=== PATIENT | male | born 1970 ===

== ENCOUNTER 2020-07-17 10:07 | Inpatient (IN) | payer MEDICAID, OTHER, SELFPAY ==
[2020-07-17 11:02] LABS: Hemoglobin 14.3 g/dL (14.0-18.0); Mean Corpuscular HGB CONC 34.3 G/DL (32.0-36.0); Mean Corpuscular Volume 84.6 fl (80.0-100.0); Mean Platelet Volume 9.6 fl (7.4-10.4); Platelet Count 240 10x3/uL (130-400); RBC Distribution Width 12.7 % (11.5-14.5); Red Blood Cell (RBC) Count 4.93 10x6/uL (4.40-5.80); White Blood Cell (WBC) Count 8.8 10x3/uL (4.5-11.0)
[2020-07-17 11:03] LABS: MDiff Complete? YES
[2020-07-17 11:17] LABS: ALT (SGPT) 22 U/L (8-55); AST (SGOT) 31 U/L (5-34); Albumin 3.6 g/dL (3.5-5.0); Alkaline Phosphatase 81 U/L (40-110); Anion Gap 15 mmol/L (10-20); BUN (Urea Nitrogen) 12 mg/dL (8.9-20.6); Bilirubin, Total 1.4 mg/dL (0.2-1.2); Calc. Creatinine Clearance 0 mL/min (70-130); Calcium 8.6 mg/dL (7.8-10.44); Carbon Dioxide 26 mmol/L (22-29); Chloride 97 mmol/L (98-107); Globulin 3.8 g/dL (2.4-3.5); Glucose 190 mg/dL (70-105); Potassium 4.2 mmol/L (3.5-5.1); Protein, Total 7.4 g/dL (6.0-8.3); Sodium 134 mmol/L (136-145)
[2020-07-17 11:23] LABS: Band 7 % (5-11); Lymphocytes 8 % (21-51); Monocytes 4 % (0-10); Neutrophil 81 % (42-75)
[2020-07-17 11:24] LABS: Platelet Morphology Comment Appears Adequate; RBC Morphology Normal
[2020-07-17] MEDS ORDERED: Dexamethasone 10 MG/ML VIAL ONE (11:34)
[2020-07-17] MEDS ORDERED: cefTRIAXone\\ROCEPHIN 1 GM VIAL ONE (11:34)
[2020-07-17] MEDS ORDERED: Loperamide HCl 2 MG CAP PO PRN (12:05)
[2020-07-17] MEDS ORDERED: HYDROcodone/Acetaminophen 5/325 mg Tablet PO PRN (12:05)
[2020-07-17] MEDS ORDERED: Azithromycin 500 MG VIAL ONE (12:14)
[2020-07-17] MEDS ORDERED: REMDESIVIR (EUA) 200 MG in Sodium Chloride 0.9% 250 ML 210 ML IV SCH (14:00)
[2020-07-17] MEDS: Famotidine 20 MG TAB PO SCH (22:06)
[2020-07-18 05:55] LABS: #Monocytes 0.6 10x3/uL (0.0-1.1); #Neutrophils 7.6 10x3/uL (1.5-8.4); %Basophils 0.1 % (0.0-2.0); %Monocytes 6.2 % (0.0-10.0); %Neutrophils 78.9 % (40.0-75.0); Hemoglobin 13.6 g/dL (14.0-18.0); Mean Corpuscular HGB CONC 34.1 G/DL (32.0-36.0); Mean Corpuscular Hemoglobin 29.1 PG (27.0-33.0); Mean Corpuscular Volume 85.3 fl (80.0-100.0); Mean Platelet Volume 9.7 fl (7.4-10.4); Platelet Count 278 10x3/uL (130-400); RBC Distribution Width 12.7 % (11.5-14.5); Red Blood Cell (RBC) Count 4.68 10x6/uL (4.40-5.80); White Blood Cell (WBC) Count 9.7 10x3/uL (4.5-11.0)
[2020-07-18 06:17] LABS: Anion Gap 15 mmol/L (10-20); BUN (Urea Nitrogen) 16 mg/dL (8.9-20.6); Calc. Creatinine Clearance 142 mL/min (70-130); Carbon Dioxide 24 mmol/L (22-29); Chloride 103 mmol/L (98-107); Glucose 175 mg/dL (70-105); Potassium 4.2 mmol/L (3.5-5.1); Sodium 138 mmol/L (136-145)
[2020-07-18 06:18] LABS: ALT (SGPT) 23 U/L (8-55); AST (SGOT) 31 U/L (5-34); Albumin 3.4 g/dL (3.5-5.0); Alkaline Phosphatase 77 U/L (40-110); Bilirubin, Total 0.6 mg/dL (0.2-1.2); Calcium 8.7 mg/dL (7.8-10.44); Globulin 3.5 g/dL (2.4-3.5); Magnesium 2.1 mg/dL (1.6-2.6); Protein, Total 6.9 g/dL (6.0-8.3)
[2020-07-18] MEDS: Ascorbic Acid 500 mg Chewable Tablet PO SCH (08:30)
[2020-07-18] MEDS: Famotidine 20 MG TAB PO SCH ×2 (08:30→20:58)
[2020-07-18] MEDS: Zinc Gluconate 50 MG TAB PO SCH (08:30)
[2020-07-18] MEDS: Cholecalciferol (Vitamin D3) 400 UNITS TAB PO SCH (08:30)
[2020-07-18] MEDS: Enoxaparin Sodium 40 MG/0.4 ML SYRINGE SC SCH (08:30)
[2020-07-18] MEDS ORDERED: Dexamethasone 4 mg/ml Vial SLOW IVP SCH (09:00)
[2020-07-18 09:43] LABS: Hemoglobin A1c 8.4 % (4.0-6.0)
[2020-07-18] MEDS: Azithromycin 500 MG in Sodium Chloride 0.9% 250 ML 250 ML IVPB SCH (11:39)
[2020-07-18] MEDS ORDERED: guaiFENesin ER 600 MG TAB PO SCH ×2 (11:54→13:00)
[2020-07-18] MEDS: REMDESIVIR (EUA) 100 MG in Sodium Chloride 0.9% 250 ML 230 ML IV SCH (14:14)
[2020-07-18] MEDS: guaiFENesin ER 600 MG TAB PO SCH (20:57)
[2020-07-18] MEDS: Dexamethasone 4 mg/ml Vial SLOW IVP SCH (20:58)
[2020-07-19 06:05] LABS: #Monocytes 0.5 10x3/uL (0.0-1.1); #Neutrophils 10.4 10x3/uL (1.5-8.4); %Basophils 0.2 % (0.0-2.0); %Lymphocytes 7.9 % (18.0-47.0); %Monocytes 4.1 % (0.0-10.0); %Neutrophils 87.2 % (40.0-75.0); Hemoglobin 13.7 g/dL (14.0-18.0); Mean Corpuscular Hemoglobin 28.7 PG (27.0-33.0); Mean Platelet Volume 10.2 fl (7.4-10.4); Platelet Count 317 10x3/uL (130-400); Red Blood Cell (RBC) Count 4.77 10x6/uL (4.40-5.80)
[2020-07-19 06:09] LABS: ALT (SGPT) 21 U/L (8-55); AST (SGOT) 23 U/L (5-34); Albumin 3.3 g/dL (3.5-5.0); Alkaline Phosphatase 73 U/L (40-110); Anion Gap 15 mmol/L (10-20); BUN (Urea Nitrogen) 21 mg/dL (8.9-20.6); Bilirubin, Total 0.5 mg/dL (0.2-1.2); Calc. Creatinine Clearance 142 mL/min (70-130); Calcium 8.4 mg/dL (7.8-10.44); Carbon Dioxide 24 mmol/L (22-29); Chloride 104 mmol/L (98-107); Globulin 3.3 g/dL (2.4-3.5); Glucose 237 mg/dL (70-105); Magnesium 1.9 mg/dL (1.6-2.6); Potassium 4.1 mmol/L (3.5-5.1); Protein, Total 6.6 g/dL (6.0-8.3); Sodium 139 mmol/L (136-145)
[2020-07-19] MEDS: Famotidine 20 MG TAB PO SCH ×2 (09:24→22:59)
[2020-07-19] MEDS: Ascorbic Acid 500 mg Chewable Tablet PO SCH (09:24)
[2020-07-19] MEDS: guaiFENesin ER 600 MG TAB PO SCH ×2 (09:24→22:59)
[2020-07-19] MEDS: Enoxaparin Sodium 40 MG/0.4 ML SYRINGE SC SCH (09:24)
[2020-07-19] MEDS: Dexamethasone 4 mg/ml Vial SLOW IVP SCH ×2 (09:24→22:59)
[2020-07-19] MEDS: Cholecalciferol (Vitamin D3) 400 UNITS TAB PO SCH (09:24)
[2020-07-19] MEDS: Zinc Gluconate 50 MG TAB PO SCH (09:24)
[2020-07-19 09:29] LABS: Hemoglobin A1c 8.5 % (4.0-6.0)
[2020-07-19] MEDS: Azithromycin 500 MG in Sodium Chloride 0.9% 250 ML 250 ML IVPB SCH (12:05)
[2020-07-19] MEDS: REMDESIVIR (EUA) 100 MG in Sodium Chloride 0.9% 250 ML 230 ML IV SCH (15:10)
[2020-07-20] MEDS ORDERED: Nitroglycerin 2% Ointment 1 INCH/1 GM Packet ONE (02:12)
[2020-07-20 06:26] LABS: #Monocytes 0.6 10x3/uL (0.0-1.1); #Neutrophils 11.7 10x3/uL (1.5-8.4); %Basophils 0.1 % (0.0-2.0); %Lymphocytes 7.5 % (18.0-47.0); %Monocytes 4.4 % (0.0-10.0); %Neutrophils 87.1 % (40.0-75.0); Hemoglobin 13.1 g/dL (14.0-18.0); Mean Corpuscular HGB CONC 33.2 G/DL (32.0-36.0); Mean Corpuscular Volume 87.2 fl (80.0-100.0); Mean Platelet Volume 9.9 fl (7.4-10.4); Platelet Count 370 10x3/uL (130-400); RBC Distribution Width 12.8 % (11.5-14.5); Red Blood Cell (RBC) Count 4.52 10x6/uL (4.40-5.80); White Blood Cell (WBC) Count 13.5 10x3/uL (4.5-11.0)
[2020-07-20 06:38] LABS: ALT (SGPT) 19 U/L (8-55); AST (SGOT) 21 U/L (5-34); Albumin 2.9 g/dL (3.5-5.0); Alkaline Phosphatase 65 U/L (40-110); Anion Gap 12 mmol/L (10-20); BUN (Urea Nitrogen) 17 mg/dL (8.9-20.6); Bilirubin, Total 0.5 mg/dL (0.2-1.2); Calc. Creatinine Clearance 151 mL/min (70-130); Calcium 7.7 mg/dL (7.8-10.44); Carbon Dioxide 25 mmol/L (22-29); Chloride 108 mmol/L (98-107); Globulin 2.9 g/dL (2.4-3.5); Glucose 203 mg/dL (70-105); Magnesium 1.7 mg/dL (1.6-2.6); Potassium 4.2 mmol/L (3.5-5.1); Protein, Total 5.8 g/dL (6.0-8.3); Sodium 141 mmol/L (136-145)
[2020-07-20] MEDS: Dexamethasone 4 mg/ml Vial SLOW IVP SCH ×2 (08:03→19:18)
[2020-07-20] MEDS: Cholecalciferol (Vitamin D3) 400 UNITS TAB PO SCH (08:04)
[2020-07-20] MEDS: Enoxaparin Sodium 40 MG/0.4 ML SYRINGE SC SCH (08:04)
[2020-07-20] MEDS: guaiFENesin ER 600 MG TAB PO SCH ×2 (08:04→19:18)
[2020-07-20] MEDS: Famotidine 20 MG TAB PO SCH ×2 (08:04→19:18)
[2020-07-20] MEDS: Ascorbic Acid 500 mg Chewable Tablet PO SCH (08:04)
[2020-07-20] MEDS: Zinc Gluconate 50 MG TAB PO SCH (08:04)
[2020-07-20] MEDS: Azithromycin 500 MG in Sodium Chloride 0.9% 250 ML 250 ML IVPB SCH (11:42)
[2020-07-20] MEDS: REMDESIVIR (EUA) 100 MG in Sodium Chloride 0.9% 250 ML 230 ML IV SCH (14:47)
[2020-07-20] MEDS ORDERED: Dextrose 5% in Water 1,000 ML IV PRN (19:11)
[2020-07-20] MEDS: HumaLOG 300 UNITS/3 ML VIAL SC PRN (19:46)
[2020-07-21 05:12] LABS: #Monocytes 0.6 10x3/uL (0.0-1.1); #Neutrophils 9.1 10x3/uL (1.5-8.4); %Basophils 0.1 % (0.0-2.0); %Lymphocytes 8.1 % (18.0-47.0); %Monocytes 5.9 % (0.0-10.0); %Neutrophils 84.7 % (40.0-75.0); Mean Corpuscular HGB CONC 33.6 G/DL (32.0-36.0); Mean Corpuscular Hemoglobin 28.8 PG (27.0-33.0); Mean Corpuscular Volume 85.8 fl (80.0-100.0); Mean Platelet Volume 9.6 fl (7.4-10.4); Platelet Count 394 10x3/uL (130-400); RBC Distribution Width 12.7 % (11.5-14.5); Red Blood Cell (RBC) Count 4.86 10x6/uL (4.40-5.80); White Blood Cell (WBC) Count 10.8 10x3/uL (4.5-11.0)
[2020-07-21 05:17] LABS: ALT (SGPT) 24 U/L (8-55); AST (SGOT) 24 U/L (5-34); Alkaline Phosphatase 69 U/L (40-110); Anion Gap 14 mmol/L (10-20); BUN (Urea Nitrogen) 14 mg/dL (8.9-20.6); Bilirubin, Total 0.4 mg/dL (0.2-1.2); Calc. Creatinine Clearance 153 mL/min (70-130); Calcium 8.2 mg/dL (7.8-10.44); Carbon Dioxide 23 mmol/L (22-29); Chloride 105 mmol/L (98-107); Glucose 230 mg/dL (70-105); Magnesium 1.7 mg/dL (1.6-2.6); Potassium 4.1 mmol/L (3.5-5.1); Sodium 138 mmol/L (136-145)
[2020-07-21] MEDS: guaiFENesin ER 600 MG TAB PO SCH ×2 (09:53→20:40)
[2020-07-21] MEDS: Enoxaparin Sodium 40 MG/0.4 ML SYRINGE SC SCH (09:53)
[2020-07-21] MEDS: Ascorbic Acid 500 mg Chewable Tablet PO SCH (09:53)
[2020-07-21] MEDS: Zinc Gluconate 50 MG TAB PO SCH (09:53)
[2020-07-21] MEDS: Cholecalciferol (Vitamin D3) 400 UNITS TAB PO SCH (09:53)
[2020-07-21] MEDS: Dexamethasone 4 mg/ml Vial SLOW IVP SCH ×2 (09:54→20:40)
[2020-07-21] MEDS: Azithromycin 500 MG in Sodium Chloride 0.9% 250 ML 250 ML IVPB SCH (11:16)
[2020-07-21] MEDS: REMDESIVIR (EUA) 100 MG in Sodium Chloride 0.9% 250 ML 230 ML IV SCH (15:12)
[2020-07-21] MEDS: HumaLOG 300 UNITS/3 ML VIAL SC PRN ×2 (17:32→21:59)
[2020-07-21] MEDS: Famotidine 20 MG TAB PO SCH (20:40)
[2020-07-22 05:58] LABS: #Monocytes 0.4 10x3/uL (0.0-1.1); #Neutrophils 7.3 10x3/uL (1.5-8.4); %Basophils 0.2 % (0.0-2.0); %Monocytes 4.3 % (0.0-10.0); %Neutrophils 86.7 % (40.0-75.0); Hemoglobin 14.1 g/dL (14.0-18.0); Mean Corpuscular HGB CONC 33.4 G/DL (32.0-36.0); Mean Corpuscular Hemoglobin 28.5 PG (27.0-33.0); Mean Corpuscular Volume 85.3 fl (80.0-100.0); Mean Platelet Volume 10.1 fl (7.4-10.4); Platelet Count 382 10x3/uL (130-400); RBC Distribution Width 12.5 % (11.5-14.5); Red Blood Cell (RBC) Count 4.95 10x6/uL (4.40-5.80); White Blood Cell (WBC) Count 8.4 10x3/uL (4.5-11.0)
[2020-07-22] MEDS: HumaLOG 300 UNITS/3 ML VIAL SC PRN ×3 (06:08→23:11)
[2020-07-22] MEDS: Enoxaparin Sodium 40 MG/0.4 ML SYRINGE SC SCH ×2 (08:51→23:33)
[2020-07-22] MEDS: Ascorbic Acid 500 mg Chewable Tablet PO SCH (08:53)
[2020-07-22] MEDS: guaiFENesin ER 600 MG TAB PO SCH ×2 (08:53→23:33)
[2020-07-22] MEDS: Famotidine 20 MG TAB PO SCH ×2 (08:53→23:33)
[2020-07-22] MEDS: Zinc Gluconate 50 MG TAB PO SCH (08:53)
[2020-07-22] MEDS: Cholecalciferol (Vitamin D3) 400 UNITS TAB PO SCH (08:53)
[2020-07-22] MEDS: Dexamethasone 4 mg/ml Vial SLOW IVP SCH ×2 (08:54→23:33)
[2020-07-22] MEDS: Acetaminophen 325 MG TAB PO PRN ×2 (09:07→14:15)
[2020-07-22] MEDS: Azithromycin 500 MG in Sodium Chloride 0.9% 250 ML 250 ML IVPB SCH (13:46)
[2020-07-22 15:48] LABS: Actual Bicarbonate (HCO3a) 25.5 mEq/L (22-28); Base Excess (BEa) 0.8 mEq/L (-2.0 to +3.0); Calcium, Ionized (arterial) 1.16 mmol/L (1.12-1.30); Carboxyhemoglobin (COHb) 0.3 gm% (0.0-3.0); Hemoglobin (Hb) 14.6 g/dL (14.0-18.0); O2 Tension (PaO2), arterial 105.2 mmHg (80.0-100.0); Potassium - ABG Lab 4.3 mmol/L (3.70-5.30); Puncture Site RBA; RapidComm Collect By EA; pH, Arterial 7.41 (7.35-7.45)
[2020-07-23 05:20] LABS: #Eosinphils 0.1 10x3/uL (0.0-0.5); #Monocytes 0.6 10x3/uL (0.0-1.1); #Neutrophils 9.3 10x3/uL (1.5-8.4); %Basophils 0.2 % (0.0-2.0); %Eosinophils 0.6 % (0.0-6.0); %Lymphocytes 5.9 % (18.0-47.0); %Monocytes 5.2 % (0.0-10.0); %Neutrophils 86.4 % (40.0-75.0); Hemoglobin 14.2 g/dL (14.0-18.0); Mean Corpuscular HGB CONC 33.3 G/DL (32.0-36.0); Mean Corpuscular Hemoglobin 28.3 PG (27.0-33.0); Mean Platelet Volume 9.8 fl (7.4-10.4); Platelet Count 407 10x3/uL (130-400); RBC Distribution Width 12.6 % (11.5-14.5); Red Blood Cell (RBC) Count 5.01 10x6/uL (4.40-5.80); White Blood Cell (WBC) Count 10.8 10x3/uL (4.5-11.0)
[2020-07-23 05:29] LABS: Anion Gap 12 mmol/L (10-20); BUN (Urea Nitrogen) 15 mg/dL (8.9-20.6); CRP (Inflammatory) 1.78 mg/dL (= or < 0.5); Calc. Creatinine Clearance 171 mL/min (70-130); Carbon Dioxide 26 mmol/L (22-29); Chloride 103 mmol/L (98-107); Glucose 138 mg/dL (70-105); Potassium 3.9 mmol/L (3.5-5.1); Sodium 137 mmol/L (136-145)
[2020-07-23] MEDS: guaiFENesin ER 600 MG TAB PO SCH ×2 (08:50→20:02)
[2020-07-23] MEDS: Cholecalciferol (Vitamin D3) 400 UNITS TAB PO SCH (08:50)
[2020-07-23] MEDS: Famotidine 20 MG TAB PO SCH ×2 (08:50→20:02)
[2020-07-23] MEDS: Enoxaparin Sodium 40 MG/0.4 ML SYRINGE SC SCH ×2 (08:50→20:01)
[2020-07-23] MEDS: Ascorbic Acid 500 mg Chewable Tablet PO SCH (08:50)
[2020-07-23] MEDS: Zinc Gluconate 50 MG TAB PO SCH (08:50)
[2020-07-23] MEDS: Dexamethasone 4 mg/ml Vial SLOW IVP SCH (08:50)
[2020-07-23] MEDS: Azithromycin 500 MG in Sodium Chloride 0.9% 250 ML 250 ML IVPB SCH (12:46)
[2020-07-23] MEDS: HumaLOG 300 UNITS/3 ML VIAL SC PRN ×2 (14:35→17:34)
[2020-07-24] MEDS: Famotidine 20 MG TAB PO SCH (09:10)
[2020-07-24] MEDS: Dexamethasone 4 mg/ml Vial SLOW IVP SCH (09:10)
[2020-07-24] MEDS: Cholecalciferol (Vitamin D3) 400 UNITS TAB PO SCH (09:10)
[2020-07-24] MEDS: Enoxaparin Sodium 40 MG/0.4 ML SYRINGE SC SCH (09:10)
[2020-07-24] MEDS: guaiFENesin ER 600 MG TAB PO SCH ×2 (09:10→21:14)
[2020-07-24] MEDS: Zinc Gluconate 50 MG TAB PO SCH (09:10)
[2020-07-24] MEDS: Ascorbic Acid 500 mg Chewable Tablet PO SCH (09:10)
[2020-07-24] MEDS: HumaLOG 300 UNITS/3 ML VIAL SC PRN (17:00)
[2020-07-24] MEDS: Enoxaparin Sodium 80 MG/0.8 ML SYRINGE SC SCH (21:14)
[2020-07-25 07:48] LABS: Anion Gap 13 mmol/L (10-20); BUN (Urea Nitrogen) 10 mg/dL (8.9-20.6); Calc. Creatinine Clearance 163 mL/min (70-130); Carbon Dioxide 25 mmol/L (22-29); Chloride 105 mmol/L (98-107); Glucose 93 mg/dL (70-105); Magnesium 1.5 mg/dL (1.6-2.6); Sodium 139 mmol/L (136-145)
[2020-07-25] MEDS ORDERED: Enoxaparin Sodium 80 MG/0.8 ML SYRINGE ONE (08:25)
[2020-07-25] MEDS: Zinc Gluconate 50 MG TAB PO SCH (08:27)
[2020-07-25] MEDS: guaiFENesin ER 600 MG TAB PO SCH ×2 (08:27→19:58)
[2020-07-25] MEDS: Enoxaparin Sodium 80 MG/0.8 ML SYRINGE SC SCH ×2 (08:27→19:58)
[2020-07-25] MEDS: Cholecalciferol (Vitamin D3) 400 UNITS TAB PO SCH (08:27)
[2020-07-25] MEDS: Dexamethasone 4 mg/ml Vial SLOW IVP SCH (08:27)
[2020-07-25] MEDS: Ascorbic Acid 500 mg Chewable Tablet PO SCH (08:27)
[2020-07-25] MEDS: HumaLOG 300 UNITS/3 ML VIAL SC PRN ×2 (12:27→17:47)
[2020-07-25] MEDS: metFORMIN 500 MG TAB PO SCH (17:47)
[2020-07-26] MEDS: Zinc Gluconate 50 MG TAB PO SCH (08:26)
[2020-07-26] MEDS: Enoxaparin Sodium 80 MG/0.8 ML SYRINGE SC SCH (08:26)
[2020-07-26] MEDS: Cholecalciferol (Vitamin D3) 400 UNITS TAB PO SCH (08:26)
[2020-07-26] MEDS: Dexamethasone 4 mg/ml Vial SLOW IVP SCH (08:26)
[2020-07-26] MEDS: guaiFENesin ER 600 MG TAB PO SCH ×2 (08:26→20:46)
[2020-07-26] MEDS: metFORMIN 500 MG TAB PO SCH ×2 (08:26→16:56)
[2020-07-26] MEDS: Ascorbic Acid 500 mg Chewable Tablet PO SCH (08:26)
[2020-07-26] MEDS: HumaLOG 300 UNITS/3 ML VIAL SC PRN (12:32)
[2020-07-26] MEDS: Enoxaparin Sodium 40 MG/0.4 ML SYRINGE SC SCH (20:46)
[2020-07-27] MEDS: Ascorbic Acid 500 mg Chewable Tablet PO SCH (08:18)
[2020-07-27] MEDS: Dexamethasone 4 mg/ml Vial SLOW IVP SCH (08:18)
[2020-07-27] MEDS: Cholecalciferol (Vitamin D3) 400 UNITS TAB PO SCH (08:18)
[2020-07-27] MEDS: metFORMIN 500 MG TAB PO SCH ×2 (08:18→16:47)
[2020-07-27] MEDS: Enoxaparin Sodium 40 MG/0.4 ML SYRINGE SC SCH ×2 (08:18→19:54)
[2020-07-27] MEDS: Zinc Gluconate 50 MG TAB PO SCH (08:19)
[2020-07-27] MEDS: guaiFENesin ER 600 MG TAB PO SCH ×2 (08:19→19:55)
[2020-07-27] MEDS: HumaLOG 300 UNITS/3 ML VIAL SC PRN ×2 (12:11→17:12)
[2020-07-28 05:32] LABS: #Monocytes 1.2 10x3/uL (0.0-1.1); #Neutrophils 13.1 10x3/uL (1.5-8.4); %Basophils 0.2 % (0.0-2.0); %Eosinophils 0.2 % (0.0-6.0); %Lymphocytes 7.1 % (18.0-47.0); %Monocytes 7.7 % (0.0-10.0); %Neutrophils 83.1 % (40.0-75.0); Hemoglobin 13.3 g/dL (14.0-18.0); Mean Corpuscular HGB CONC 33.5 G/DL (32.0-36.0); Mean Corpuscular Hemoglobin 28.7 PG (27.0-33.0); Mean Corpuscular Volume 85.7 fl (80.0-100.0); Mean Platelet Volume 10.1 fl (7.4-10.4); Platelet Count 338 10x3/uL (130-400); RBC Distribution Width 12.9 % (11.5-14.5); Red Blood Cell (RBC) Count 4.63 10x6/uL (4.40-5.80); White Blood Cell (WBC) Count 15.7 10x3/uL (4.5-11.0)
[2020-07-28 05:50] LABS: ALT (SGPT) 49 U/L (8-55); AST (SGOT) 25 U/L (5-34); Albumin 2.8 g/dL (3.5-5.0); Alkaline Phosphatase 117 U/L (40-110); Anion Gap 13 mmol/L (10-20); BUN (Urea Nitrogen) 15 mg/dL (8.9-20.6); Bilirubin, Total 0.5 mg/dL (0.2-1.2); Calc. Creatinine Clearance 165 mL/min (70-130); Calcium 8.5 mg/dL (7.8-10.44); Carbon Dioxide 26 mmol/L (22-29); Chloride 101 mmol/L (98-107); Globulin 3.5 g/dL (2.4-3.5); Glucose 156 mg/dL (70-105); Protein, Total 6.3 g/dL (6.0-8.3); Sodium 136 mmol/L (136-145)
[2020-07-28] MEDS: Cholecalciferol (Vitamin D3) 400 UNITS TAB PO SCH (08:20)
[2020-07-28] MEDS: guaiFENesin ER 600 MG TAB PO SCH ×2 (08:20→20:02)
[2020-07-28] MEDS: Zinc Gluconate 50 MG TAB PO SCH (08:20)
[2020-07-28] MEDS: Ascorbic Acid 500 mg Chewable Tablet PO SCH (08:20)
[2020-07-28] MEDS: Dexamethasone 4 mg/ml Vial SLOW IVP SCH (08:20)
[2020-07-28] MEDS: metFORMIN 500 MG TAB PO SCH ×2 (08:20→17:20)
[2020-07-28] MEDS: Enoxaparin Sodium 40 MG/0.4 ML SYRINGE SC SCH ×2 (08:57→20:01)
[2020-07-28] MEDS ORDERED: Rocuronium Bromide 10 MG/ML (10ML VIAL) ONE (10:00)
[2020-07-28] MEDS: HumaLOG 300 UNITS/3 ML VIAL SC PRN ×3 (13:38→23:51)
[2020-07-28 14:44] LABS: Troponin I Less than 0.010 ng/mL (< 0.028)
[2020-07-28] MEDS ORDERED: guaiFENesin 100 MG/5 ML UDCUP PO PRN (15:23)
[2020-07-28] MEDS: Benzonatate 100 MG CAP PO PRN (17:20)
[2020-07-28] MEDS: Mometasone 200 MCG/PUFF (1 INHALER) INH SCH (20:46)
[2020-07-28] MEDS ORDERED: Lorazepam 2 MG/ML VIAL ONE (23:27)
[2020-07-28 23:29] LABS: Actual Bicarbonate (HCO3a) 25.7 mEq/L (22-28); Base Excess (BEa) 0.2 mEq/L (-2.0 to +3.0); CO2 Tension 44.7 mmHg (35.0-45.0); Calcium, Ionized (arterial) 1.21 mmol/L (1.12-1.30); Carboxyhemoglobin (COHb) 0.6 gm% (0.0-3.0); Hemoglobin (Hb) 15.2 g/dL (14.0-18.0); O2 Tension (PaO2), arterial 43.5 mmHg (80.0-100.0); Potassium - ABG Lab 4.2 mmol/L (3.70-5.30); Puncture Site RRA; pH, Arterial 7.38 (7.35-7.45)
[2020-07-28] MEDS ORDERED: Lorazepam 2 MG/ML VIAL SLOW IVP SCH (23:30)
[2020-07-28] MEDS ORDERED: Furosemide 40 MG/4 ML VIAL ONE (23:36)
[2020-07-28] MEDS ORDERED: Furosemide 20 MG/2 ML VIAL SLOW IVP SCH (23:45)
[2020-07-29] MEDS ORDERED: Propofol 1,000 MG/100 ML VIAL IV PRN ×2 (01:13→01:45)
[2020-07-29] MEDS ORDERED: Propofol 1,000 MG/100 ML VIAL IV ONE (01:13)
[2020-07-29] MEDS ORDERED: Ventilator Sedation Protocol 1 EACH FS SCH (01:15)
[2020-07-29] MEDS ORDERED: Furosemide 40 MG/4 ML VIAL SLOW IVP SCH (01:30)
[2020-07-29] MEDS ORDERED: Fentanyl 100 MCG/2 ML VIAL SLOW IVP SCH (01:30)
[2020-07-29] MEDS ORDERED: fentaNYL Citrate/PF 50 MCG/ML (20ML VIAL) ONE (01:36)
[2020-07-29] MEDS ORDERED: Sodium Chloride 0.9% 100 ML ONE (01:37)
[2020-07-29] MEDS ORDERED: DISCONTINUE PREVIOUS NARCOTIC PAIN MEDICATIONS AND BENZODIAZEPINES FS SCH (01:45)
[2020-07-29] MEDS ORDERED: Morphine 2 MG/ML VIAL SLOW IVP PRN (01:45)
[2020-07-29] MEDS ORDERED: Fentanyl BOLUS 250 ML IVPB PRN (01:45)
[2020-07-29] MEDS ORDERED: Propofol BOLUS 1,000 MG/100 ML VIAL IV PRN (01:45)
[2020-07-29] MEDS: fentaNYL Citrate/PF 2,000 MCG in Sodium Chloride 0.9% 60 ML IV SCH ×2 (02:00→13:40)
[2020-07-29 02:56] LABS: Hemoglobin 15.4 g/dL (14.0-18.0); Mean Corpuscular HGB CONC 33.1 G/DL (32.0-36.0); Mean Corpuscular Volume 87.6 fl (80.0-100.0); Platelet Count 407 10x3/uL (130-400); RBC Distribution Width 13.3 % (11.5-14.5); Red Blood Cell (RBC) Count 5.31 10x6/uL (4.40-5.80)
[2020-07-29 02:59] LABS: MDiff Complete? YES
[2020-07-29 03:12] LABS: Lymphocytes 10 % (21-51); Monocytes 9 % (0-10); Neutrophil 81 % (42-75)
[2020-07-29 03:16] LABS: Platelet Morphology Comment Appears Adequate; RBC Morphology Normal
[2020-07-29 03:27] LABS: Mean Platelet Volume 10.8 fl (7.4-10.4)
[2020-07-29] MEDS: Cefepime 1 GM in Sodium Chloride 0.9% 100 ML IVPB SCH ×2 (03:59→13:30)
[2020-07-29 04:04] LABS: ALT (SGPT) 47 U/L (8-55); AST (SGOT) 32 U/L (5-34); Albumin 3.1 g/dL (3.5-5.0); Alkaline Phosphatase 155 U/L (40-110); Anion Gap 20 mmol/L (10-20); BUN (Urea Nitrogen) 17 mg/dL (8.9-20.6); Bilirubin, Total 0.8 mg/dL (0.2-1.2); CRP (Inflammatory) 20.96 mg/dL (= or < 0.5); Calc. Creatinine Clearance 116 mL/min (70-130); Calcium 8.9 mg/dL (7.8-10.44); Carbon Dioxide 23 mmol/L (22-29); Chloride 96 mmol/L (98-107); Globulin 4.3 g/dL (2.4-3.5); Glucose 216 mg/dL (70-105); Potassium 5.1 mmol/L (3.5-5.1); Protein, Total 7.4 g/dL (6.0-8.3); Sodium 134 mmol/L (136-145)
[2020-07-29] MEDS ORDERED: Norepinephrine 8 MG/0.9% NS 250 ML ONE (04:09)
[2020-07-29 04:27] LABS: Actual Bicarbonate (HCO3a) 24.9 mEq/L (22-28); Base Excess (BEa) -1.5 mEq/L (-2.0 to +3.0); CO2 Tension 48.3 mmHg (35.0-45.0); Calcium, Ionized (arterial) 1.14 mmol/L (1.12-1.30); Carboxyhemoglobin (COHb) 0.4 gm% (0.0-3.0); Hemoglobin (Hb) 14.6 g/dL (14.0-18.0); O2 Tension (PaO2), arterial 56.1 mmHg (80.0-100.0); Potassium - ABG Lab 4.3 mmol/L (3.70-5.30); Puncture Site RRA; pH, Arterial 7.33 (7.35-7.45)
[2020-07-29 04:29] LABS: ALV-art Gradient 596.525 mmHg (0-20)
[2020-07-29] MEDS ORDERED: Vancomycin 1.5 GRAM/300 ML BAG 1.5 GM in Premix Bag 1 BAG IVPB SCH (05:00)
[2020-07-29] MEDS ORDERED: Vancomycin 1 GM in Premix Bag 1 BAG IVPB SCH (05:00)
[2020-07-29] MEDS: HumaLOG 300 UNITS/3 ML VIAL SC PRN ×3 (05:35→20:46)
[2020-07-29] MEDS: Vancomycin 1.5 GRAM/300 ML BAG 1.5 GM in Premix Bag 1 BAG IVPB SCH ×2 (06:48→18:50)
[2020-07-29] MEDS: Mometasone 200 MCG/PUFF (1 INHALER) INH SCH (07:06)
[2020-07-29] MEDS: Budesonide 0.25 MG/2 ML NEB INH SCH ×2 (07:48→19:35)
[2020-07-29] MEDS: metFORMIN 500 MG TAB PO SCH ×2 (07:54→17:17)
[2020-07-29] MEDS: guaiFENesin ER 600 MG TAB PO SCH ×2 (07:56→20:37)
[2020-07-29] MEDS ORDERED: Pantoprazole 40 MG VIAL ONE (08:39)
[2020-07-29] MEDS: Enoxaparin Sodium 80 MG/0.8 ML SYRINGE SC SCH ×2 (08:43→20:37)
[2020-07-29] MEDS: Pantoprazole 40 MG VIAL IVP SCH ×2 (08:43→20:37)
[2020-07-29] MEDS: Dexamethasone 4 mg/ml Vial SLOW IVP SCH (08:43)
[2020-07-29] MEDS: Zinc Gluconate 50 MG TAB PO SCH (08:44)
[2020-07-29] MEDS: Cholecalciferol (Vitamin D3) 400 UNITS TAB PO SCH (08:44)
[2020-07-29] MEDS: Ascorbic Acid 500 mg Chewable Tablet PO SCH (08:44)
[2020-07-29] MEDS: Vecuronium Bromide 50 MG in Sodium Chloride 0.9% 250 ML 250 ML IV SCH (14:11)
[2020-07-29 14:39] LABS: Legionella Urinary Ag Negative (Negative); Strep pneumo Urine Ag NEGATIVE (NEGATIVE)
[2020-07-30] MEDS: Vecuronium Bromide 50 MG in Sodium Chloride 0.9% 250 ML 250 ML IV SCH (02:10)
[2020-07-30] MEDS: Cefepime 1 GM in Sodium Chloride 0.9% 100 ML IVPB SCH ×2 (02:47→12:20)
[2020-07-30 04:17] LABS: #Monocytes 0.8 10x3/uL (0.0-1.1); %Basophils 0.2 % (0.0-2.0); %Lymphocytes 4.4 % (18.0-47.0); %Monocytes 4.3 % (0.0-10.0); %Neutrophils 89.9 % (40.0-75.0); Hemoglobin 13.1 g/dL (14.0-18.0); Mean Corpuscular Hemoglobin 29.1 PG (27.0-33.0); Mean Corpuscular Volume 91.1 fl (80.0-100.0); Platelet Count 275 10x3/uL (130-400); RBC Distribution Width 13.1 % (11.5-14.5); White Blood Cell (WBC) Count 17.8 10x3/uL (4.5-11.0)
[2020-07-30] MEDS: Fentanyl CADD 100 ML IV SCH ×2 (04:23→17:56)
[2020-07-30 04:27] LABS: Anion Gap 13 mmol/L (10-20); BUN (Urea Nitrogen) 20 mg/dL (8.9-20.6); Calc. Creatinine Clearance 129 mL/min (70-130); Calcium 8.7 mg/dL (7.8-10.44); Carbon Dioxide 32 mmol/L (22-29); Chloride 99 mmol/L (98-107); Glucose 207 mg/dL (70-105); Magnesium 2.1 mg/dL (1.6-2.6); Phosphorus 4.1 mg/dL (2.3-4.7); Potassium 5.1 mmol/L (3.5-5.1); Sodium 139 mmol/L (136-145)
[2020-07-30] MEDS: HumaLOG 300 UNITS/3 ML VIAL SC PRN ×3 (06:38→20:41)
[2020-07-30] MEDS: Vancomycin 1.5 GRAM/300 ML BAG 1.5 GM in Premix Bag 1 BAG IVPB SCH ×3 (06:39→17:56)
[2020-07-30] MEDS: Budesonide 0.25 MG/2 ML NEB INH SCH ×2 (07:35→18:50)
[2020-07-30] MEDS: metFORMIN 500 MG TAB PO SCH ×2 (08:23→16:21)
[2020-07-30 08:55] LABS: Actual Bicarbonate (HCO3a) 34.1 mEq/L (22-28); Base Excess (BEa) 4.2 mEq/L (-2.0 to +3.0); CO2 Tension 81.5 mmHg (35.0-45.0); Calcium, Ionized (arterial) 1.18 mmol/L (1.12-1.30); Carboxyhemoglobin (COHb) 0.4 gm% (0.0-3.0); O2 Tension (PaO2), arterial 142.3 mmHg (80.0-100.0); Potassium - ABG Lab 4.5 mmol/L (3.70-5.30); Puncture Site LRA; pH, Arterial 7.24 (7.35-7.45)
[2020-07-30] MEDS: Enoxaparin Sodium 80 MG/0.8 ML SYRINGE SC SCH ×2 (09:17→20:41)
[2020-07-30] MEDS: Dexamethasone 4 mg/ml Vial SLOW IVP SCH (09:18)
[2020-07-30] MEDS: Pantoprazole 40 MG VIAL IVP SCH ×2 (09:18→20:41)
[2020-07-30] MEDS: Zinc Gluconate 50 MG TAB PO SCH (09:21)
[2020-07-30] MEDS: Cholecalciferol (Vitamin D3) 400 UNITS TAB PO SCH (09:21)
[2020-07-30] MEDS: Ascorbic Acid 500 mg Chewable Tablet PO SCH (09:21)
[2020-07-30] MEDS: guaiFENesin ER 600 MG TAB PO SCH ×2 (09:22→20:41)
[2020-07-30] MEDS ORDERED: Lidocaine 1% (PF) 30 ML VIAL FS SCH (12:48)
[2020-07-30] MEDS ORDERED: Lidocaine 1% (PF) 30 ML VIAL ONE (12:48)
[2020-07-30 18:42] LABS: Base Excess (BEa) 2.2 mEq/L (-2.0 to +3.0); CO2 Tension 62.2 mmHg (35.0-45.0); Calcium, Ionized (arterial) 1.18 mmol/L (1.12-1.30); Carboxyhemoglobin (COHb) 0.3 gm% (0.0-3.0); Hemoglobin (Hb) 12.7 g/dL (14.0-18.0); O2 Tension (PaO2), arterial 147.9 mmHg (80.0-100.0); Potassium - ABG Lab 4.9 mmol/L (3.70-5.30); Puncture Site Other Site
[2020-07-31] MEDS: Vecuronium Bromide 50 MG in Sodium Chloride 0.9% 250 ML 250 ML IV SCH (01:33)
[2020-07-31] MEDS: Cefepime 1 GM in Sodium Chloride 0.9% 100 ML IVPB SCH ×2 (01:34→13:31)
[2020-07-31] MEDS: HumaLOG 300 UNITS/3 ML VIAL SC PRN ×3 (05:00→16:21)
[2020-07-31 05:54] LABS: FSP-Qualitative Normal (Normal); FSP-Semiquantitative <5 mcg/mL (Less than 5)
[2020-07-31 06:12] LABS: INR-International Normal Ratio 1.1; PTT 34.5 sec (22.0-33.0); Prothrombin Time 11.2 sec (9.5-12.1)
[2020-07-31 06:15] LABS: Fibrinogen Greater than 840 mg/dL (220-504)
[2020-07-31 06:21] LABS: D-Dimer Test 1.19 mg/L FEU (0.19-0.50)
[2020-07-31] MEDS: Vancomycin 1.5 GRAM/300 ML BAG 1.5 GM in Premix Bag 1 BAG IVPB SCH ×2 (06:27→17:16)
[2020-07-31] MEDS: Budesonide 0.25 MG/2 ML NEB INH SCH ×2 (06:30→19:50)
[2020-07-31 07:07] LABS: #Monocytes 0.6 10x3/uL (0.0-1.1); #Neutrophils 10.9 10x3/uL (1.5-8.4); %Basophils 0.1 % (0.0-2.0); %Lymphocytes 4.7 % (18.0-47.0); %Monocytes 5.1 % (0.0-10.0); %Neutrophils 89.2 % (40.0-75.0); Hemoglobin 11.3 g/dL (14.0-18.0); Mean Corpuscular HGB CONC 32.1 G/DL (32.0-36.0); Mean Corpuscular Hemoglobin 29.3 PG (27.0-33.0); Mean Corpuscular Volume 91.2 fl (80.0-100.0); Mean Platelet Volume 10.2 fl (7.4-10.4); Platelet Count 235 10x3/uL (130-400); RBC Distribution Width 13.2 % (11.5-14.5); Red Blood Cell (RBC) Count 3.86 10x6/uL (4.40-5.80); White Blood Cell (WBC) Count 12.2 10x3/uL (4.5-11.0)
[2020-07-31 07:07] LABS: Platelet Count 235 10x3/uL (130-400)
[2020-07-31 07:40] LABS: ALT (SGPT) 26 U/L (8-55); AST (SGOT) 12 U/L (5-34); Albumin 2.5 g/dL (3.5-5.0); Alkaline Phosphatase 93 U/L (40-110); Anion Gap 11 mmol/L (10-20); BUN (Urea Nitrogen) 28 mg/dL (8.9-20.6); Bilirubin, Total 0.3 mg/dL (0.2-1.2); Calc. Creatinine Clearance 132 mL/min (70-130); Calcium 8.4 mg/dL (7.8-10.44); Carbon Dioxide 33 mmol/L (22-29); Chloride 99 mmol/L (98-107); Globulin 3.4 g/dL (2.4-3.5); Glucose 193 mg/dL (70-105); Potassium 5.1 mmol/L (3.5-5.1); Protein, Total 5.9 g/dL (6.0-8.3); Sodium 138 mmol/L (136-145)
[2020-07-31] MEDS: Pantoprazole 40 MG VIAL IVP SCH ×2 (08:13→20:52)
[2020-07-31] MEDS: Dexamethasone 4 mg/ml Vial SLOW IVP SCH (08:13)
[2020-07-31] MEDS: guaiFENesin ER 600 MG TAB PO SCH ×2 (08:13→20:52)
[2020-07-31] MEDS: Enoxaparin Sodium 80 MG/0.8 ML SYRINGE SC SCH ×2 (08:13→20:50)
[2020-07-31] MEDS: Ascorbic Acid 500 mg Chewable Tablet PO SCH (08:14)
[2020-07-31] MEDS: Cholecalciferol (Vitamin D3) 400 UNITS TAB PO SCH (08:14)
[2020-07-31] MEDS: Zinc Gluconate 50 MG TAB PO SCH (08:14)
[2020-07-31] MEDS: metFORMIN 500 MG TAB PO SCH ×2 (08:19→17:16)
[2020-07-31] MEDS: Fentanyl CADD 100 ML IV SCH (09:20)
[2020-08-01] MEDS: Fentanyl CADD 100 ML IV SCH ×2 (01:03→17:02)
[2020-08-01] MEDS: Cefepime 1 GM in Sodium Chloride 0.9% 100 ML IVPB SCH ×2 (01:10→16:20)
[2020-08-01 03:54] LABS: Hemoglobin 11.5 g/dL (14.0-18.0); Mean Corpuscular HGB CONC 31.9 G/DL (32.0-36.0); Mean Corpuscular Hemoglobin 28.7 PG (27.0-33.0); Mean Platelet Volume 10.3 fl (7.4-10.4); Platelet Count 229 10x3/uL (130-400); RBC Distribution Width 13.2 % (11.5-14.5); Red Blood Cell (RBC) Count 4.01 10x6/uL (4.40-5.80); White Blood Cell (WBC) Count 11.3 10x3/uL (4.5-11.0)
[2020-08-01 04:01] LABS: Anion Gap 13 mmol/L (10-20); BUN (Urea Nitrogen) 27 mg/dL (8.9-20.6); Calc. Creatinine Clearance 157 mL/min (70-130); Calcium 8.2 mg/dL (7.8-10.44); Carbon Dioxide 32 mmol/L (22-29); Chloride 99 mmol/L (98-107); Glucose 123 mg/dL (70-105); Sodium 139 mmol/L (136-145)
[2020-08-01] MEDS: Vancomycin 1.5 GRAM/300 ML BAG 1.5 GM in Premix Bag 1 BAG IVPB SCH ×2 (05:58→18:04)
[2020-08-01] MEDS: Budesonide 0.25 MG/2 ML NEB INH SCH ×2 (08:19→19:24)
[2020-08-01] MEDS: Ascorbic Acid 500 mg Chewable Tablet PO SCH (08:47)
[2020-08-01] MEDS: metFORMIN 500 MG TAB PO SCH ×2 (08:47→18:05)
[2020-08-01] MEDS: guaiFENesin ER 600 MG TAB PO SCH ×2 (08:47→21:16)
[2020-08-01] MEDS: Dexamethasone 4 mg/ml Vial SLOW IVP SCH (08:48)
[2020-08-01] MEDS: Zinc Gluconate 50 MG TAB PO SCH (08:49)
[2020-08-01] MEDS: Enoxaparin Sodium 80 MG/0.8 ML SYRINGE SC SCH ×2 (08:49→21:16)
[2020-08-01] MEDS: Cholecalciferol (Vitamin D3) 400 UNITS TAB PO SCH (08:49)
[2020-08-01] MEDS: glipiZIDE 5 MG TAB PO SCH ×2 (08:49→21:16)
[2020-08-01] MEDS: Pantoprazole 40 MG VIAL IVP SCH ×2 (08:50→21:16)
[2020-08-02] MEDS: Cefepime 1 GM in Sodium Chloride 0.9% 100 ML IVPB SCH ×2 (03:00→14:34)
[2020-08-02 03:31] LABS: Actual Bicarbonate (HCO3a) 32.9 mEq/L (22-28); Base Excess (BEa) 6.3 mEq/L (-2.0 to +3.0); CO2 Tension 56.6 mmHg (35.0-45.0); Calcium, Ionized (arterial) 1.13 mmol/L (1.12-1.30); Carboxyhemoglobin (COHb) 0.3 gm% (0.0-3.0); Hemoglobin (Hb) 12.7 g/dL (14.0-18.0); O2 Tension (PaO2), arterial 57.8 mmHg (80.0-100.0); Potassium - ABG Lab 4.2 mmol/L (3.70-5.30); Puncture Site RRA; pH, Arterial 7.38 (7.35-7.45)
[2020-08-02] MEDS: Fentanyl CADD 100 ML IV SCH ×2 (06:27→21:06)
[2020-08-02] MEDS: Vancomycin 1.5 GRAM/300 ML BAG 1.5 GM in Premix Bag 1 BAG IVPB SCH ×2 (06:28→17:36)
[2020-08-02] MEDS: Budesonide 0.25 MG/2 ML NEB INH SCH ×2 (07:35→19:13)
[2020-08-02] MEDS: Dexamethasone 4 mg/ml Vial SLOW IVP SCH (08:13)
[2020-08-02] MEDS: Pantoprazole 40 MG VIAL IVP SCH ×2 (08:13→21:05)
[2020-08-02] MEDS: Ascorbic Acid 500 mg Chewable Tablet PO SCH (08:15)
[2020-08-02] MEDS: metFORMIN 500 MG TAB PO SCH ×2 (08:17→16:57)
[2020-08-02] MEDS: Cholecalciferol (Vitamin D3) 400 UNITS TAB PO SCH (08:17)
[2020-08-02] MEDS: Enoxaparin Sodium 80 MG/0.8 ML SYRINGE SC SCH ×2 (08:17→21:05)
[2020-08-02] MEDS: Zinc Gluconate 50 MG TAB PO SCH (08:17)
[2020-08-02] MEDS: glipiZIDE 5 MG TAB PO SCH ×2 (08:17→21:05)
[2020-08-02] MEDS: guaiFENesin ER 600 MG TAB PO SCH ×2 (08:18→21:05)
[2020-08-02] MEDS ORDERED: Dexmedetomidine In 0.9 % NaCl 100 ML ONE (10:41)
[2020-08-02] MEDS ORDERED: Cefepime 1 GM VIAL ONE ×2 (14:32→20:02)
[2020-08-02] MEDS ORDERED: DEXMEDETOMIDINE IVPB SCH (14:45)
[2020-08-02] MEDS: HumaLOG 300 UNITS/3 ML VIAL SC PRN ×2 (16:30→21:53)
[2020-08-03] MEDS: Cefepime 1 GM in Sodium Chloride 0.9% 100 ML IVPB SCH ×2 (02:13→14:17)
[2020-08-03 04:46] LABS: #Eosinphils 0.2 10x3/uL (0.0-0.5); #Monocytes 0.5 10x3/uL (0.0-1.1); #Neutrophils 6.7 10x3/uL (1.5-8.4); %Basophils 0.2 % (0.0-2.0); %Lymphocytes 11.6 % (18.0-47.0); %Monocytes 5.8 % (0.0-10.0); %Neutrophils 78.5 % (40.0-75.0); Hemoglobin 11.7 g/dL (14.0-18.0); Mean Corpuscular HGB CONC 33.1 G/DL (32.0-36.0); Mean Corpuscular Hemoglobin 28.7 PG (27.0-33.0); Mean Corpuscular Volume 86.8 fl (80.0-100.0); Mean Platelet Volume 10.9 fl (7.4-10.4); Platelet Count 183 10x3/uL (130-400); RBC Distribution Width 12.9 % (11.5-14.5); Red Blood Cell (RBC) Count 4.08 10x6/uL (4.40-5.80); White Blood Cell (WBC) Count 8.6 10x3/uL (4.5-11.0)
[2020-08-03 05:05] LABS: Anion Gap 12 mmol/L (10-20); BUN (Urea Nitrogen) 19 mg/dL (8.9-20.6); Calc. Creatinine Clearance 171 mL/min (70-130); Calcium 8.2 mg/dL (7.8-10.44); Carbon Dioxide 33 mmol/L (22-29); Chloride 94 mmol/L (98-107); Glucose 156 mg/dL (70-105); Potassium 4.3 mmol/L (3.5-5.1); Sodium 135 mmol/L (136-145)
[2020-08-03] MEDS: Vancomycin 1.5 GRAM/300 ML BAG 1.5 GM in Premix Bag 1 BAG IVPB SCH ×2 (06:03→17:53)
[2020-08-03] MEDS: Fentanyl CADD 100 ML IV SCH ×2 (07:00→20:31)
[2020-08-03] MEDS: Budesonide 0.25 MG/2 ML NEB INH SCH ×2 (07:15→19:06)
[2020-08-03] MEDS: HumaLOG 300 UNITS/3 ML VIAL SC PRN ×3 (08:00→22:00)
[2020-08-03] MEDS: glipiZIDE 5 MG TAB PO SCH ×2 (09:09→20:28)
[2020-08-03] MEDS: Dexamethasone 4 mg/ml Vial SLOW IVP SCH (09:09)
[2020-08-03] MEDS: metFORMIN 500 MG TAB PO SCH ×2 (09:09→17:05)
[2020-08-03] MEDS: Cholecalciferol (Vitamin D3) 400 UNITS TAB PO SCH (09:10)
[2020-08-03] MEDS: Enoxaparin Sodium 80 MG/0.8 ML SYRINGE SC SCH ×2 (09:10→20:28)
[2020-08-03] MEDS: Zinc Gluconate 50 MG TAB PO SCH (09:10)
[2020-08-03] MEDS: Pantoprazole 40 MG VIAL IVP SCH ×2 (09:11→20:29)
[2020-08-03] MEDS: guaiFENesin ER 600 MG TAB PO SCH ×2 (09:11→20:29)
[2020-08-03] MEDS: Dexmedetomidine In 0.9 % NaCl 100 ML IVPB SCH ×2 (12:30→20:31)
[2020-08-03] MEDS: Lorazepam 2 MG/ML VIAL SLOW IVP PRN (13:21)
[2020-08-03 13:31] LABS: Actual Bicarbonate (HCO3a) 34.5 mEq/L (22-28); Base Excess (BEa) 6.7 mEq/L (-2.0 to +3.0); CO2 Tension 64.8 mmHg (35.0-45.0); Calcium, Ionized (arterial) 1.09 mmol/L (1.12-1.30); Carboxyhemoglobin (COHb) 0.6 gm% (0.0-3.0); Hemoglobin (Hb) 13.2 g/dL (14.0-18.0); O2 Tension (PaO2), arterial 45.3 mmHg (80.0-100.0); Potassium - ABG Lab 4.4 mmol/L (3.70-5.30); Puncture Site RRA; pH, Arterial 7.34 (7.35-7.45)
[2020-08-03] MEDS: Ascorbic Acid 500 mg Chewable Tablet PO SCH (14:12)
[2020-08-03] MEDS ORDERED: Vecuronium 10 MG VIAL IV SCH (14:30)
[2020-08-03 17:21] LABS: Vancomycin, Trough 9.8 ug/mL
[2020-08-03] MEDS: Lantus 1000 UNITS/10 ML VIAL SC SCH (20:29)
[2020-08-04] MEDS: Vancomycin 1.5 GRAM/300 ML BAG 1.5 GM in Premix Bag 1 BAG IVPB SCH ×3 (01:44→21:11)
[2020-08-04] MEDS: Cefepime 1 GM in Sodium Chloride 0.9% 100 ML IVPB SCH ×2 (01:44→15:54)
[2020-08-04] MEDS: Dexmedetomidine In 0.9 % NaCl 100 ML IVPB SCH ×3 (05:06→22:11)
[2020-08-04] MEDS: Norepinephrine 8 MG/0.9% NS 250 ML IVPB SCH (06:52)
[2020-08-04] MEDS: Fentanyl CADD 100 ML IV SCH ×2 (08:30→16:25)
[2020-08-04] MEDS: glipiZIDE 5 MG TAB PO SCH ×2 (09:42→21:10)
[2020-08-04] MEDS: metFORMIN 500 MG TAB PO SCH ×2 (09:42→15:54)
[2020-08-04] MEDS: Zinc Gluconate 50 MG TAB PO SCH (09:42)
[2020-08-04] MEDS: Cholecalciferol (Vitamin D3) 400 UNITS TAB PO SCH (09:42)
[2020-08-04] MEDS: Ascorbic Acid 500 mg Chewable Tablet PO SCH (09:42)
[2020-08-04] MEDS: Enoxaparin Sodium 80 MG/0.8 ML SYRINGE SC SCH ×2 (09:43→21:10)
[2020-08-04] MEDS: Pantoprazole 40 MG VIAL IVP SCH ×2 (09:43→21:11)
[2020-08-04] MEDS: Dexamethasone 4 mg/ml Vial SLOW IVP SCH (09:43)
[2020-08-04] MEDS: guaiFENesin ER 600 MG TAB PO SCH ×2 (09:44→21:11)
[2020-08-04 11:25] LABS: Actual Bicarbonate (HCO3a) 31.3 mEq/L (22-28); Base Excess (BEa) 4.6 mEq/L (-2.0 to +3.0); CO2 Tension 55.3 mmHg (35.0-45.0); Calcium, Ionized (arterial) 1.14 mmol/L (1.12-1.30); Carboxyhemoglobin (COHb) 0.3 gm% (0.0-3.0); Hemoglobin (Hb) 13.6 g/dL (14.0-18.0); Notified Whom: RN/TELEMED; O2 Tension (PaO2), arterial 74.1 mmHg (80.0-100.0); Potassium - ABG Lab 3.7 mmol/L (3.70-5.30); Puncture Site RRA; RapidComm Collect By CP.BR1; pH, Arterial 7.37 (7.35-7.45)
[2020-08-04] MEDS: Budesonide 0.25 MG/2 ML NEB INH SCH ×2 (11:49→19:37)
[2020-08-04] MEDS: Vecuronium 10 MG VIAL IV SCH ×3 (12:04→23:13)
[2020-08-04] MEDS: Sodium Chloride 0.9% 1,000 ML IV SCH (12:04)
[2020-08-04] MEDS: Lorazepam 2 MG/ML VIAL SLOW IVP PRN (15:12)
[2020-08-04] MEDS: HumaLOG 300 UNITS/3 ML VIAL SC PRN ×2 (16:15→22:00)
[2020-08-04 19:27] LABS: Vancomycin, Trough 14.4 ug/mL
[2020-08-04] MEDS: Lantus 1000 UNITS/10 ML VIAL SC SCH (21:11)
[2020-08-05] MEDS: Cefepime 1 GM in Sodium Chloride 0.9% 100 ML IVPB SCH ×2 (00:56→14:17)
[2020-08-05] MEDS: Fentanyl CADD 100 ML IV SCH ×2 (02:52→12:56)
[2020-08-05] MEDS: Vancomycin 1.5 GRAM/300 ML BAG 1.5 GM in Premix Bag 1 BAG IVPB SCH ×3 (05:26→22:00)
[2020-08-05] MEDS: Vecuronium 10 MG VIAL IV SCH ×3 (05:27→17:12)
[2020-08-05] MEDS: Sodium Chloride 0.9% 1,000 ML IV SCH (05:28)
[2020-08-05] MEDS: Budesonide 0.25 MG/2 ML NEB INH SCH (07:29)
[2020-08-05] MEDS: Dexmedetomidine In 0.9 % NaCl 100 ML IVPB SCH ×2 (07:46→15:42)
[2020-08-05] MEDS: Dexamethasone 4 mg/ml Vial SLOW IVP SCH (08:43)
[2020-08-05] MEDS: Cholecalciferol (Vitamin D3) 400 UNITS TAB PO SCH (08:44)
[2020-08-05] MEDS: glipiZIDE 5 MG TAB PO SCH ×2 (08:44→20:38)
[2020-08-05] MEDS: guaiFENesin ER 600 MG TAB PO SCH ×2 (08:44→20:39)
[2020-08-05] MEDS: Zinc Gluconate 50 MG TAB PO SCH (08:44)
[2020-08-05] MEDS: metFORMIN 500 MG TAB PO SCH ×2 (08:44→16:06)
[2020-08-05] MEDS: Enoxaparin Sodium 80 MG/0.8 ML SYRINGE SC SCH ×2 (08:45→20:37)
[2020-08-05] MEDS: Pantoprazole 40 MG VIAL IVP SCH (08:46)
[2020-08-05] MEDS: Ascorbic Acid 500 mg Chewable Tablet PO SCH (08:46)
[2020-08-05] MEDS: HumaLOG 300 UNITS/3 ML VIAL SC PRN ×3 (10:31→21:45)
[2020-08-05 11:29] LABS: Actual Bicarbonate (HCO3a) 34.2 mEq/L (22-28); Base Excess (BEa) 8.2 mEq/L (-2.0 to +3.0); CO2 Tension 52.9 mmHg (35.0-45.0); Carboxyhemoglobin (COHb) 0.6 gm% (0.0-3.0); Hemoglobin (Hb) 13.2 g/dL (14.0-18.0); O2 Tension (PaO2), arterial 64.1 mmHg (80.0-100.0); Puncture Site RRA; RapidComm Collect By BB; pH, Arterial 7.43 (7.35-7.45)
[2020-08-05] MEDS: Budesonide 0.5 MG/2 ML NEB NEB SCH (18:46)
[2020-08-05 20:34] LABS: Vancomycin, Trough 11.3 ug/mL
[2020-08-05] MEDS: Pantoprazole 40 MG GRANULES PACKET PER TUBE SCH (20:40)
[2020-08-05] MEDS: Lantus 1000 UNITS/10 ML VIAL SC SCH (21:45)
[2020-08-06] MEDS: Acetaminophen 325 MG TAB PO PRN (00:20)
[2020-08-06] MEDS: Dexmedetomidine In 0.9 % NaCl 100 ML IVPB SCH ×3 (00:20→16:41)
[2020-08-06] MEDS: Fentanyl CADD 100 ML IV SCH ×3 (00:20→20:39)
[2020-08-06] MEDS: Vecuronium 10 MG VIAL IV SCH ×5 (01:01→23:27)
[2020-08-06] MEDS: Cefepime 1 GM in Sodium Chloride 0.9% 100 ML IVPB SCH ×2 (01:02→13:15)
[2020-08-06 04:59] LABS: Anion Gap 13 mmol/L (10-20); BUN (Urea Nitrogen) 18 mg/dL (8.9-20.6); Calc. Creatinine Clearance 170 mL/min (70-130); Calcium 7.9 mg/dL (7.8-10.44); Carbon Dioxide 33 mmol/L (22-29); Chloride 92 mmol/L (98-107); Glucose 164 mg/dL (70-105); Sodium 134 mmol/L (136-145)
[2020-08-06 05:04] LABS: Hemoglobin 11.8 g/dL (14.0-18.0); Mean Corpuscular HGB CONC 33.4 G/DL (32.0-36.0); Mean Corpuscular Hemoglobin 28.7 PG (27.0-33.0); Mean Corpuscular Volume 85.9 fl (80.0-100.0); Mean Platelet Volume 11.2 fl (7.4-10.4); Platelet Count 187 10x3/uL (130-400); RBC Distribution Width 13.3 % (11.5-14.5); Red Blood Cell (RBC) Count 4.11 10x6/uL (4.40-5.80); White Blood Cell (WBC) Count 12.8 10x3/uL (4.5-11.0)
[2020-08-06] MEDS: Vancomycin 1.5 GRAM/300 ML BAG 1.5 GM in Premix Bag 1 BAG IVPB SCH ×2 (06:00→12:01)
[2020-08-06 06:31] LABS: MDiff Complete? YES
[2020-08-06 06:37] LABS: Band 12 % (5-11); Eosinophils 2 % (0-10); Lymphocytes 10 % (21-51); Monocytes 3 % (0-10); Neutrophil 72 % (42-75); Platelet Morphology Comment Appears Adequate; Reactive Lymphocytes 1 % (0-10)
[2020-08-06] MEDS: Budesonide 0.5 MG/2 ML NEB NEB SCH ×2 (07:27→19:45)
[2020-08-06] MEDS: glipiZIDE 5 MG TAB PO SCH ×2 (08:07→20:07)
[2020-08-06] MEDS: Dexamethasone 4 mg/ml Vial SLOW IVP SCH (08:07)
[2020-08-06] MEDS: Enoxaparin Sodium 80 MG/0.8 ML SYRINGE SC SCH ×2 (08:07→20:07)
[2020-08-06] MEDS: Pantoprazole 40 MG GRANULES PACKET PER TUBE SCH ×2 (08:08→20:08)
[2020-08-06] MEDS: Ascorbic Acid 500 mg Chewable Tablet PO SCH (08:08)
[2020-08-06] MEDS: guaiFENesin ER 600 MG TAB PO SCH ×2 (08:08→20:08)
[2020-08-06] MEDS: Zinc Gluconate 50 MG TAB PO SCH (08:08)
[2020-08-06] MEDS: Cholecalciferol (Vitamin D3) 400 UNITS TAB PO SCH (08:08)
[2020-08-06] MEDS: metFORMIN 500 MG TAB PO SCH ×2 (08:08→16:48)
[2020-08-06] MEDS: Sodium Chloride 0.9% 1,000 ML IV SCH ×2 (08:12→23:26)
[2020-08-06] MEDS: HumaLOG 300 UNITS/3 ML VIAL SC PRN ×3 (09:55→21:11)
[2020-08-06] MEDS ORDERED: Furosemide 100 MG/10 ML VIAL SLOW IVP SCH (11:30)
[2020-08-06 12:20] LABS: Actual Bicarbonate (HCO3a) 35.2 mEq/L (22-28); Base Excess (BEa) 10.1 mEq/L (-2.0 to +3.0); CO2 Tension 49.1 mmHg (35.0-45.0); Calcium, Ionized (arterial) 1.09 mmol/L (1.12-1.30); Carboxyhemoglobin (COHb) 0.4 gm% (0.0-3.0); Hemoglobin (Hb) 12.1 g/dL (14.0-18.0); O2 Tension (PaO2), arterial 91.5 mmHg (80.0-100.0); Potassium - ABG Lab 4.5 mmol/L (3.70-5.30); Puncture Site RRA; RapidComm Collect By EA; pH, Arterial 7.47 (7.35-7.45)
[2020-08-06] MEDS ORDERED: glipiZIDE 5 MG TAB ONE ×2 (20:00)
[2020-08-06] MEDS: VANCOMYCIN 1.75 GM/350 ML BAG 1.75 GM in Premix Bag 1 BAG IVPB SCH (20:08)
[2020-08-06] MEDS: Norepinephrine 8 MG/0.9% NS 250 ML IVPB SCH (20:09)
[2020-08-06] MEDS: Lantus 1000 UNITS/10 ML VIAL SC SCH (20:35)
[2020-08-07] MEDS: Cefepime 1 GM in Sodium Chloride 0.9% 100 ML IVPB SCH (03:21)
[2020-08-07] MEDS: VANCOMYCIN 1.75 GM/350 ML BAG 1.75 GM in Premix Bag 1 BAG IVPB SCH (04:58)
[2020-08-07 05:06] LABS: #Eosinphils 0.3 10x3/uL (0.0-0.5); #Monocytes 0.1 10x3/uL (0.0-1.1); #Neutrophils 7.3 10x3/uL (1.5-8.4); %Basophils 0.1 % (0.0-2.0); %Eosinophils 3.6 % (0.0-6.0); %Lymphocytes 9.6 % (18.0-47.0); %Monocytes 1.6 % (0.0-10.0); Hemoglobin 11.4 g/dL (14.0-18.0); Mean Corpuscular HGB CONC 33.3 G/DL (32.0-36.0); Mean Corpuscular Hemoglobin 28.9 PG (27.0-33.0); Mean Corpuscular Volume 86.8 fl (80.0-100.0); Mean Platelet Volume 10.9 fl (7.4-10.4); Platelet Count 187 10x3/uL (130-400); RBC Distribution Width 13.2 % (11.5-14.5); Red Blood Cell (RBC) Count 3.94 10x6/uL (4.40-5.80); White Blood Cell (WBC) Count 8.7 10x3/uL (4.5-11.0)
[2020-08-07] MEDS: Vecuronium 10 MG VIAL IV SCH (05:06)
[2020-08-07 05:29] LABS: Anion Gap 12 mmol/L (10-20); BUN (Urea Nitrogen) 20 mg/dL (8.9-20.6); Calc. Creatinine Clearance 181 mL/min (70-130); Calcium 7.9 mg/dL (7.8-10.44); Carbon Dioxide 32 mmol/L (22-29); Chloride 93 mmol/L (98-107); Glucose 152 mg/dL (70-105); Potassium 3.5 mmol/L (3.5-5.1); Sodium 133 mmol/L (136-145)
[2020-08-07] MEDS: Metoprolol Tartrate 5 MG/5 ML VIAL IVP PRN (06:18)
[2020-08-07] MEDS: Budesonide 0.5 MG/2 ML NEB NEB SCH ×2 (07:40→19:11)
[2020-08-07] MEDS: Fentanyl CADD 100 ML IV SCH ×2 (07:58→17:09)
[2020-08-07] MEDS: Dexmedetomidine In 0.9 % NaCl 100 ML IVPB SCH ×2 (09:33→17:18)
[2020-08-07] MEDS: Enoxaparin Sodium 80 MG/0.8 ML SYRINGE SC SCH ×2 (09:33→20:27)
[2020-08-07] MEDS: Dexamethasone 4 mg/ml Vial SLOW IVP SCH (09:33)
[2020-08-07] MEDS: Ascorbic Acid 500 mg Chewable Tablet PO SCH (09:34)
[2020-08-07] MEDS: Zinc Gluconate 50 MG TAB PO SCH (09:34)
[2020-08-07] MEDS: guaiFENesin ER 600 MG TAB PO SCH ×2 (09:34→20:32)
[2020-08-07] MEDS: Cholecalciferol (Vitamin D3) 400 UNITS TAB PO SCH (09:34)
[2020-08-07] MEDS: metFORMIN 500 MG TAB PO SCH ×2 (09:35→15:52)
[2020-08-07] MEDS: Pantoprazole 40 MG GRANULES PACKET PER TUBE SCH ×2 (09:35→20:33)
[2020-08-07] MEDS: glipiZIDE 5 MG TAB PO SCH ×2 (09:35→20:32)
[2020-08-07] MEDS ORDERED: Furosemide 40 MG/4 ML VIAL SLOW IVP SCH (10:30)
[2020-08-07] MEDS: HumaLOG 300 UNITS/3 ML VIAL SC PRN ×3 (12:47→21:51)
[2020-08-07] MEDS: clonazePAM 0.5 MG TAB PO SCH ×2 (15:52→20:27)
[2020-08-07] MEDS: Sodium Chloride 0.9% 1,000 ML IV SCH (20:26)
[2020-08-07] MEDS: Furosemide 40 MG/4 ML VIAL SLOW IVP SCH (20:32)
[2020-08-07] MEDS: Lantus 1000 UNITS/10 ML VIAL SC SCH (20:33)
[2020-08-07 21:54] LABS: Vancomycin, Trough 10.9 ug/mL
[2020-08-08] MEDS: Dexmedetomidine In 0.9 % NaCl 100 ML IVPB SCH ×3 (02:42→17:38)
[2020-08-08] MEDS: HumaLOG 300 UNITS/3 ML VIAL SC PRN ×4 (03:59→21:08)
[2020-08-08] MEDS: Fentanyl CADD 100 ML IV SCH ×2 (05:35→13:57)
[2020-08-08 06:34] LABS: #Eosinphils 0.2 10x3/uL (0.0-0.5); #Monocytes 1.1 10x3/uL (0.0-1.1); #Neutrophils 11.5 10x3/uL (1.5-8.4); %Basophils 0.1 % (0.0-2.0); %Eosinophils 1.5 % (0.0-6.0); %Lymphocytes 7.8 % (18.0-47.0); %Neutrophils 81.9 % (40.0-75.0); Hemoglobin 12.3 g/dL (14.0-18.0); Mean Corpuscular HGB CONC 33.2 G/DL (32.0-36.0); Mean Corpuscular Hemoglobin 28.7 PG (27.0-33.0); Mean Corpuscular Volume 86.7 fl (80.0-100.0); Mean Platelet Volume 10.7 fl (7.4-10.4); Platelet Count 242 10x3/uL (130-400); RBC Distribution Width 13.6 % (11.5-14.5); Red Blood Cell (RBC) Count 4.28 10x6/uL (4.40-5.80); White Blood Cell (WBC) Count 14.1 10x3/uL (4.5-11.0)
[2020-08-08 06:55] LABS: Anion Gap 12 mmol/L (10-20); BUN (Urea Nitrogen) 25 mg/dL (8.9-20.6); Calc. Creatinine Clearance 149 mL/min (70-130); Calcium 8.5 mg/dL (7.8-10.44); Carbon Dioxide 36 mmol/L (22-29); Chloride 92 mmol/L (98-107); Glucose 293 mg/dL (70-105); Sodium 136 mmol/L (136-145)
[2020-08-08] MEDS: Budesonide 0.5 MG/2 ML NEB NEB SCH (06:55)
[2020-08-08] MEDS: metFORMIN 500 MG TAB PO SCH ×2 (08:41→17:05)
[2020-08-08] MEDS: Enoxaparin Sodium 80 MG/0.8 ML SYRINGE SC SCH ×2 (08:41→21:10)
[2020-08-08] MEDS: Pantoprazole 40 MG GRANULES PACKET PER TUBE SCH ×2 (08:42→21:11)
[2020-08-08] MEDS: Ascorbic Acid 500 mg Chewable Tablet PO SCH (08:42)
[2020-08-08] MEDS: Zinc Gluconate 50 MG TAB PO SCH (08:42)
[2020-08-08] MEDS: Furosemide 40 MG/4 ML VIAL SLOW IVP SCH ×2 (08:42→21:10)
[2020-08-08] MEDS: Dexamethasone 4 mg/ml Vial SLOW IVP SCH (08:42)
[2020-08-08] MEDS: clonazePAM 0.5 MG TAB PO SCH ×3 (08:42→21:09)
[2020-08-08] MEDS: Acetaminophen 325 MG TAB PO PRN ×2 (08:42→13:53)
[2020-08-08] MEDS: Cholecalciferol (Vitamin D3) 400 UNITS TAB PO SCH (08:43)
[2020-08-08] MEDS: glipiZIDE 5 MG TAB PO SCH ×2 (08:43→21:10)
[2020-08-08] MEDS ORDERED: Morphine 2 MG/ML VIAL SLOW IVP PRN (10:30)
[2020-08-08] MEDS ORDERED: Lantus 1000 UNITS/10 ML VIAL SC SCH (10:30)
[2020-08-08] MEDS ORDERED: Fentanyl BOLUS 250 ML IVPB PRN (10:30)
[2020-08-08] MEDS: guaiFENesin ER 600 MG TAB PO SCH ×2 (12:26→21:10)
[2020-08-08] MEDS: Metoprolol Tartrate 5 MG/5 ML VIAL IVP PRN (12:33)
[2020-08-08] MEDS: Sodium Chloride 0.9% 1,000 ML IV SCH (17:05)
[2020-08-08] MEDS: Lantus 1000 UNITS/10 ML VIAL SC SCH (21:11)
[2020-08-09] MEDS: Budesonide 0.5 MG/2 ML NEB NEB SCH ×3 (00:37→18:56)
[2020-08-09] MEDS: Metoprolol Tartrate 5 MG/5 ML VIAL IVP PRN ×4 (00:53→22:28)
[2020-08-09] MEDS: Acetaminophen 325 MG TAB PO PRN ×3 (00:53→15:10)
[2020-08-09] MEDS ORDERED: Fentanyl CADD 100 ML ONE (01:55)
[2020-08-09] MEDS: Fentanyl CADD 100 ML IV SCH ×3 (02:30→18:05)
[2020-08-09 04:30] LABS: #Eosinphils 0.2 10x3/uL (0.0-0.5); #Monocytes 1.3 10x3/uL (0.0-1.1); #Neutrophils 14.8 10x3/uL (1.5-8.4); %Basophils 0.2 % (0.0-2.0); %Eosinophils 0.9 % (0.0-6.0); %Lymphocytes 5.7 % (18.0-47.0); %Monocytes 7.2 % (0.0-10.0); %Neutrophils 84.9 % (40.0-75.0); Mean Corpuscular HGB CONC 32.9 G/DL (32.0-36.0); Mean Corpuscular Volume 88.2 fl (80.0-100.0); Mean Platelet Volume 10.5 fl (7.4-10.4); Platelet Count 310 10x3/uL (130-400); RBC Distribution Width 13.4 % (11.5-14.5); Red Blood Cell (RBC) Count 4.48 10x6/uL (4.40-5.80); White Blood Cell (WBC) Count 17.4 10x3/uL (4.5-11.0)
[2020-08-09 04:37] LABS: BUN (Urea Nitrogen) 26 mg/dL (8.9-20.6); Calc. Creatinine Clearance 154 mL/min (70-130); Calcium 8.9 mg/dL (7.8-10.44); Glucose 264 mg/dL (70-105)
[2020-08-09 04:44] LABS: Anion Gap 16 mmol/L (10-20); Carbon Dioxide 39 mmol/L (22-29); Chloride 86 mmol/L (98-107); Potassium 4.1 mmol/L (3.5-5.1); Sodium 137 mmol/L (136-145)
[2020-08-09] MEDS: Docusate Sodium 100 MG/10 ML UDCUP PO SCH ×2 (05:58→15:10)
[2020-08-09] MEDS: HumaLOG 300 UNITS/3 ML VIAL SC PRN ×4 (05:58→21:02)
[2020-08-09] MEDS: Cholecalciferol (Vitamin D3) 400 UNITS TAB PO SCH (09:41)
[2020-08-09] MEDS: guaiFENesin ER 600 MG TAB PO SCH ×2 (09:41→20:19)
[2020-08-09] MEDS: Pantoprazole 40 MG GRANULES PACKET PER TUBE SCH ×2 (09:41→20:20)
[2020-08-09] MEDS: Zinc Gluconate 50 MG TAB PO SCH (09:41)
[2020-08-09] MEDS: Furosemide 40 MG/4 ML VIAL SLOW IVP SCH ×2 (09:41→20:19)
[2020-08-09] MEDS: metFORMIN 500 MG TAB PO SCH ×2 (09:41→16:56)
[2020-08-09] MEDS: Dexamethasone 4 mg/ml Vial SLOW IVP SCH (09:41)
[2020-08-09] MEDS: clonazePAM 0.5 MG TAB PO SCH ×3 (09:41→20:19)
[2020-08-09] MEDS: Ascorbic Acid 500 mg Chewable Tablet PO SCH (09:41)
[2020-08-09] MEDS: Polyethylene Glycol 3350 17 GM Packet PER TUBE SCH (09:42)
[2020-08-09] MEDS: Enoxaparin Sodium 80 MG/0.8 ML SYRINGE SC SCH ×2 (09:42→20:19)
[2020-08-09] MEDS: glipiZIDE 5 MG TAB PO SCH ×2 (09:42→20:19)
[2020-08-09] MEDS: Lantus 1000 UNITS/10 ML VIAL SC SCH ×2 (09:44→21:01)
[2020-08-09] MEDS: Dexmedetomidine In 0.9 % NaCl 100 ML IVPB SCH ×2 (09:58→18:05)
[2020-08-09] MEDS: Sodium Chloride 0.9% 1,000 ML IV SCH (15:10)
[2020-08-09 17:10] LABS: Bilirubin Neg (Negative); Blood, Urine 10 (Negative); Clarity Clear (Clear); Glucose, Urine (Dipstick) >=1000 mg/dL (Negative); Ketone, Urine Negative (Negative); Leukocyte Negative (Negative); Nitrite Negative (Negative); Protein, Urine (Dipstick) Negative (Neg-Trace); pH, Urine 6.5 (5.0-9.0)
[2020-08-09 17:14] LABS: Urine Culture Reflex No No
[2020-08-09 17:23] LABS: Bacteria/HPF Rare-Few HPF (None Seen); Calcium Oxalate Crystals 1+ HPF (None Seen); RBC/HPF 0-3 HPF (0-3); WBC/HPF 0-3 HPF (0-3); Yeast-Budding 1+ HPF (None Seen); Yeast-Hyphae Rare HPF (None Seen)
[2020-08-10] MEDS: Docusate Sodium 100 MG/10 ML UDCUP PO SCH ×2 (02:19→13:58)
[2020-08-10] MEDS: Metoprolol Tartrate 5 MG/5 ML VIAL IVP PRN ×3 (02:49→13:58)
[2020-08-10] MEDS: HumaLOG 300 UNITS/3 ML VIAL SC PRN ×4 (03:22→21:05)
[2020-08-10 05:04] LABS: #Basophils 0.1 10x3/uL (0.0-0.2); #Eosinphils 0.1 10x3/uL (0.0-0.5); #Monocytes 1.2 10x3/uL (0.0-1.1); #Neutrophils 16.7 10x3/uL (1.5-8.4); %Basophils 0.3 % (0.0-2.0); %Eosinophils 0.7 % (0.0-6.0); %Lymphocytes 5.7 % (18.0-47.0); %Neutrophils 85.7 % (40.0-75.0); Hemoglobin 11.7 g/dL (14.0-18.0); Mean Corpuscular HGB CONC 31.1 G/DL (32.0-36.0); Mean Corpuscular Hemoglobin 28.2 PG (27.0-33.0); Mean Corpuscular Volume 90.6 fl (80.0-100.0); Mean Platelet Volume 11.6 fl (7.4-10.4); Platelet Count 386 10x3/uL (130-400); RBC Distribution Width 13.5 % (11.5-14.5); Red Blood Cell (RBC) Count 4.15 10x6/uL (4.40-5.80); White Blood Cell (WBC) Count 19.5 10x3/uL (4.5-11.0)
[2020-08-10] MEDS: Fentanyl CADD 100 ML IV SCH ×2 (05:05→15:04)
[2020-08-10 05:12] LABS: BUN (Urea Nitrogen) 29 mg/dL (8.9-20.6); Calc. Creatinine Clearance 136 mL/min (70-130); Glucose 378 mg/dL (70-105)
[2020-08-10 05:20] LABS: Anion Gap 16 mmol/L (10-20); Chloride 84 mmol/L (98-107); Potassium 4.3 mmol/L (3.5-5.1); Sodium 138 mmol/L (136-145)
[2020-08-10 05:25] LABS: Carbon Dioxide 42 mmol/L (22-29)
[2020-08-10] MEDS: Budesonide 0.5 MG/2 ML NEB NEB SCH ×2 (07:55→18:40)
[2020-08-10] MEDS: Acetaminophen 325 MG TAB PO PRN ×2 (08:01→14:13)
[2020-08-10] MEDS: Polyethylene Glycol 3350 17 GM Packet PER TUBE SCH (08:02)
[2020-08-10] MEDS: Dexamethasone 4 mg/ml Vial SLOW IVP SCH (08:02)
[2020-08-10] MEDS: Enoxaparin Sodium 80 MG/0.8 ML SYRINGE SC SCH ×2 (08:02→20:24)
[2020-08-10] MEDS: Ascorbic Acid 500 mg Chewable Tablet PO SCH (08:03)
[2020-08-10] MEDS: metFORMIN 500 MG TAB PO SCH ×2 (08:03→16:21)
[2020-08-10] MEDS: Zinc Gluconate 50 MG TAB PO SCH (08:03)
[2020-08-10] MEDS: clonazePAM 0.5 MG TAB PO SCH ×3 (08:03→20:24)
[2020-08-10] MEDS: Furosemide 40 MG/4 ML VIAL SLOW IVP SCH (08:03)
[2020-08-10] MEDS: guaiFENesin ER 600 MG TAB PO SCH ×2 (08:04→20:25)
[2020-08-10] MEDS: Pantoprazole 40 MG GRANULES PACKET PER TUBE SCH ×2 (08:04→20:25)
[2020-08-10] MEDS: glipiZIDE 5 MG TAB PO SCH ×2 (08:04→20:24)
[2020-08-10] MEDS: Cholecalciferol (Vitamin D3) 400 UNITS TAB PO SCH (08:05)
[2020-08-10] MEDS: Lantus 1000 UNITS/10 ML VIAL SC SCH ×2 (08:06→20:25)
[2020-08-10] MEDS: Sodium Chloride 0.9% 1,000 ML IV SCH ×2 (08:08→20:26)
[2020-08-10] MEDS: Dexmedetomidine In 0.9 % NaCl 100 ML IVPB SCH ×2 (10:29→17:50)
[2020-08-10] MEDS ORDERED: Metoprolol Tartrate 25 MG TAB PO SCH (11:30)
[2020-08-10] MEDS ORDERED: Piperacillin/Tazobactam 3.375 GM in Sodium Chloride 0.9% 100 ML IVPB SCH (13:00)
[2020-08-10] MEDS ORDERED: Digoxin 0.5 MG/2 ML AMP SLOW IVP SCH (13:00)
[2020-08-10] MEDS ORDERED: VANCOMYCIN 1.25 GM/250 ML BAG 1.25 GM in Premix Bag 1 BAG IVPB SCH (13:30)
[2020-08-10] MEDS ORDERED: Adenosine 6 MG/2 ML VIAL ONE (15:22)
[2020-08-10] MEDS ORDERED: Adenosine 6 MG/2 ML VIAL IVP SCH (15:45)
[2020-08-10] MEDS: Piperacillin/Tazobactam 3.375 GM in Sodium Chloride 0.9% 100 ML IVPB SCH (16:21)
[2020-08-10] MEDS: Ivabradine 5 MG TAB PO SCH (16:40)
[2020-08-10] MEDS: Metoprolol Tartrate 25 MG TAB PO SCH (20:25)
[2020-08-11] MEDS: Acetaminophen 325 MG TAB PO PRN ×4 (00:05→20:06)
[2020-08-11] MEDS: Vancomycin HCl 1 GM in Sodium Chloride 0.9% 250 ML 250 ML IVPB SCH ×2 (00:05→12:02)
[2020-08-11] MEDS: Metoprolol Tartrate 5 MG/5 ML VIAL IVP PRN (00:06)
[2020-08-11] MEDS: Dexmedetomidine In 0.9 % NaCl 100 ML IVPB SCH ×3 (00:06→16:22)
[2020-08-11] MEDS: Piperacillin/Tazobactam 3.375 GM in Sodium Chloride 0.9% 100 ML IVPB SCH ×3 (01:45→16:00)
[2020-08-11] MEDS: Docusate Sodium 100 MG/10 ML UDCUP PO SCH ×2 (01:50→14:53)
[2020-08-11] MEDS: Fentanyl CADD 100 ML IV SCH ×2 (02:40→13:14)
[2020-08-11 04:31] LABS: #Monocytes 1.2 10x3/uL (0.0-1.1); #Neutrophils 10.9 10x3/uL (1.5-8.4); %Basophils 0.2 % (0.0-2.0); %Lymphocytes 10.1 % (18.0-47.0); %Monocytes 8.7 % (0.0-10.0); %Neutrophils 79.2 % (40.0-75.0); Hemoglobin 10.1 g/dL (14.0-18.0); Mean Corpuscular HGB CONC 31.6 G/DL (32.0-36.0); Mean Corpuscular Hemoglobin 29.4 PG (27.0-33.0); Mean Platelet Volume 11.3 fl (7.4-10.4); Platelet Count 357 10x3/uL (130-400); RBC Distribution Width 13.8 % (11.5-14.5); Red Blood Cell (RBC) Count 3.44 10x6/uL (4.40-5.80); White Blood Cell (WBC) Count 13.7 10x3/uL (4.5-11.0)
[2020-08-11] MEDS: Ivabradine 5 MG TAB PO SCH ×2 (04:32→16:00)
[2020-08-11] MEDS: HumaLOG 300 UNITS/3 ML VIAL SC PRN ×4 (04:33→21:59)
[2020-08-11 04:37] LABS: BUN (Urea Nitrogen) 42 mg/dL (8.9-20.6); Calc. Creatinine Clearance 118 mL/min (70-130); Calcium 8.2 mg/dL (7.8-10.44); Glucose 336 mg/dL (70-105)
[2020-08-11 04:44] LABS: Anion Gap 14 mmol/L (10-20); Carbon Dioxide 39 mmol/L (22-29); Chloride 90 mmol/L (98-107); Potassium 4.5 mmol/L (3.5-5.1); Sodium 138 mmol/L (136-145)
[2020-08-11] MEDS: Sodium Chloride 0.9% 1,000 ML IV SCH ×2 (08:08→18:39)
[2020-08-11] MEDS: Cholecalciferol (Vitamin D3) 400 UNITS TAB PO SCH (08:34)
[2020-08-11] MEDS: Enoxaparin Sodium 80 MG/0.8 ML SYRINGE SC SCH ×2 (08:34→20:05)
[2020-08-11] MEDS: Polyethylene Glycol 3350 17 GM Packet PER TUBE SCH (08:35)
[2020-08-11] MEDS: Dexamethasone 4 mg/ml Vial SLOW IVP SCH (08:35)
[2020-08-11] MEDS: Furosemide 40 MG/4 ML VIAL SLOW IVP SCH (08:35)
[2020-08-11] MEDS: clonazePAM 0.5 MG TAB PO SCH ×3 (08:35→20:05)
[2020-08-11] MEDS: Zinc Gluconate 50 MG TAB PO SCH (08:35)
[2020-08-11] MEDS: metFORMIN 500 MG TAB PO SCH ×2 (08:36→16:00)
[2020-08-11] MEDS: glipiZIDE 5 MG TAB PO SCH ×2 (08:36→20:05)
[2020-08-11] MEDS: guaiFENesin ER 600 MG TAB PO SCH ×2 (08:36→20:05)
[2020-08-11] MEDS: Ascorbic Acid 500 mg Chewable Tablet PO SCH (08:37)
[2020-08-11] MEDS: Metoprolol Tartrate 25 MG TAB PO SCH ×2 (08:37→20:06)
[2020-08-11] MEDS: Pantoprazole 40 MG GRANULES PACKET PER TUBE SCH ×2 (08:37→20:06)
[2020-08-11] MEDS: Lantus 1000 UNITS/10 ML VIAL SC SCH ×2 (08:38→20:05)
[2020-08-11] MEDS: Budesonide 0.5 MG/2 ML NEB NEB SCH ×2 (09:00→18:24)
[2020-08-11] MEDS ORDERED: Digoxin 0.5 MG/2 ML AMP SLOW IVP SCH (09:00)
[2020-08-11] MEDS ORDERED: Ivabradine 5 MG TAB PO SCH (17:15)
[2020-08-12] MEDS: Piperacillin/Tazobactam 3.375 GM in Sodium Chloride 0.9% 100 ML IVPB SCH (00:05)
[2020-08-12] MEDS: Vancomycin HCl 1 GM in Sodium Chloride 0.9% 250 ML 250 ML IVPB SCH ×2 (00:05→20:18)
[2020-08-12] MEDS: Docusate Sodium 100 MG/10 ML UDCUP PO SCH ×3 (00:06→20:37)
[2020-08-12] MEDS: Sodium Chloride 0.9% 1,000 ML IV SCH ×2 (00:06→14:53)
[2020-08-12] MEDS: Dexmedetomidine In 0.9 % NaCl 100 ML IVPB SCH ×3 (00:24→18:32)
[2020-08-12] MEDS: Fentanyl CADD 100 ML IV SCH ×2 (00:37→18:32)
[2020-08-12] MEDS: Ivabradine 5 MG TAB PO SCH ×2 (07:18→17:03)
[2020-08-12] MEDS: Budesonide 0.5 MG/2 ML NEB NEB SCH ×2 (07:34→23:34)
[2020-08-12 08:39] LABS: #Basophils 0.1 10x3/uL (0.0-0.2); #Monocytes 1.2 10x3/uL (0.0-1.1); #Neutrophils 11.9 10x3/uL (1.5-8.4); %Basophils 0.3 % (0.0-2.0); %Eosinophils 0.2 % (0.0-6.0); %Lymphocytes 12.8 % (18.0-47.0); %Monocytes 7.7 % (0.0-10.0); %Neutrophils 76.2 % (40.0-75.0); Hemoglobin 9.3 g/dL (14.0-18.0); Mean Corpuscular HGB CONC 30.3 G/DL (32.0-36.0); Mean Corpuscular Hemoglobin 28.6 PG (27.0-33.0); Mean Corpuscular Volume 94.5 fl (80.0-100.0); Mean Platelet Volume 11.7 fl (7.4-10.4); Platelet Count 300 10x3/uL (130-400); RBC Distribution Width 14.1 % (11.5-14.5); Red Blood Cell (RBC) Count 3.25 10x6/uL (4.40-5.80); White Blood Cell (WBC) Count 15.6 10x3/uL (4.5-11.0)
[2020-08-12 09:18] LABS: BUN (Urea Nitrogen) 34 mg/dL (8.9-20.6); Calc. Creatinine Clearance 146 mL/min (70-130); Calcium 7.9 mg/dL (7.8-10.44); Glucose 251 mg/dL (70-105)
[2020-08-12 09:27] LABS: Anion Gap 11 mmol/L (10-20); Chloride 96 mmol/L (98-107)
[2020-08-12] MEDS ORDERED: Dextrose 5% in Water 100 ML ONE (09:44)
[2020-08-12 09:47] LABS: Carbon Dioxide Greater than 37 mmol/L (22-29); Potassium 4.2 mmol/L (3.5-5.1); Sodium 144 mmol/L (136-145)
[2020-08-12] MEDS: Acetaminophen 325 MG TAB PO PRN ×3 (09:53→22:43)
[2020-08-12] MEDS: Ascorbic Acid 500 mg Chewable Tablet PO SCH (09:53)
[2020-08-12] MEDS: metFORMIN 500 MG TAB PO SCH ×2 (09:54→17:03)
[2020-08-12] MEDS: clonazePAM 0.5 MG TAB PO SCH ×3 (09:54→20:33)
[2020-08-12] MEDS: Metoprolol Tartrate 25 MG TAB PO SCH ×2 (09:54→20:35)
[2020-08-12] MEDS: glipiZIDE 5 MG TAB PO SCH ×2 (09:54→20:34)
[2020-08-12] MEDS: Zinc Gluconate 50 MG TAB PO SCH (09:54)
[2020-08-12] MEDS: guaiFENesin ER 600 MG TAB PO SCH ×2 (09:54→20:34)
[2020-08-12] MEDS: Piperacillin/Tazobactam 3.375 GM in Dextrose 5% in Water 100 ML IVPB SCH ×2 (09:55→17:03)
[2020-08-12] MEDS: Pantoprazole 40 MG GRANULES PACKET PER TUBE SCH ×2 (09:55→20:36)
[2020-08-12] MEDS: Furosemide 40 MG/4 ML VIAL SLOW IVP SCH (09:55)
[2020-08-12] MEDS: Dexamethasone 4 mg/ml Vial SLOW IVP SCH (09:55)
[2020-08-12] MEDS: Cholecalciferol (Vitamin D3) 400 UNITS TAB PO SCH (09:55)
[2020-08-12] MEDS: Polyethylene Glycol 3350 17 GM Packet PER TUBE SCH (09:56)
[2020-08-12] MEDS ORDERED: Lantus 1000 UNITS/10 ML VIAL SC SCH (12:15)
[2020-08-12] MEDS: HumaLOG 300 UNITS/3 ML VIAL SC PRN ×3 (12:37→21:00)
[2020-08-12] MEDS: Enoxaparin Sodium 80 MG/0.8 ML SYRINGE SC SCH ×2 (12:38→20:33)
[2020-08-12 12:53] LABS: Vancomycin, Trough 8.4 ug/mL
[2020-08-12] MEDS: Lantus 1000 UNITS/10 ML VIAL SC SCH ×2 (20:18→20:34)
[2020-08-13] MEDS: Sodium Chloride 0.9% 1,000 ML IV SCH ×3 (00:21→23:00)
[2020-08-13] MEDS: Piperacillin/Tazobactam 3.375 GM in Dextrose 5% in Water 100 ML IVPB SCH ×3 (01:25→17:09)
[2020-08-13 05:03] LABS: #Eosinphils 0.1 10x3/uL (0.0-0.5); #Monocytes 0.8 10x3/uL (0.0-1.1); #Neutrophils 11.8 10x3/uL (1.5-8.4); %Basophils 0.1 % (0.0-2.0); %Eosinophils 0.8 % (0.0-6.0); %Lymphocytes 11.7 % (18.0-47.0); %Monocytes 5.4 % (0.0-10.0); %Neutrophils 78.1 % (40.0-75.0); Hemoglobin 8.3 g/dL (14.0-18.0); Mean Corpuscular HGB CONC 30.9 G/DL (32.0-36.0); Mean Corpuscular Hemoglobin 28.9 PG (27.0-33.0); Mean Corpuscular Volume 93.7 fl (80.0-100.0); Platelet Count 319 10x3/uL (130-400); RBC Distribution Width 14.3 % (11.5-14.5); Red Blood Cell (RBC) Count 2.87 10x6/uL (4.40-5.80); White Blood Cell (WBC) Count 15.1 10x3/uL (4.5-11.0)
[2020-08-13] MEDS: Acetaminophen 325 MG TAB PO PRN (05:03)
[2020-08-13] MEDS: Ivabradine 5 MG TAB PO SCH ×2 (05:03→17:10)
[2020-08-13] MEDS: Dexmedetomidine In 0.9 % NaCl 100 ML IVPB SCH (05:05)
[2020-08-13] MEDS: HumaLOG 300 UNITS/3 ML VIAL SC PRN ×3 (05:05→21:00)
[2020-08-13 05:21] LABS: ALT (SGPT) 22 U/L (8-55); AST (SGOT) 9 U/L (5-34); Albumin 2.7 g/dL (3.5-5.0); Alkaline Phosphatase 53 U/L (40-110); BUN (Urea Nitrogen) 39 mg/dL (8.9-20.6); Bilirubin, Total 0.4 mg/dL (0.2-1.2); Calc. Creatinine Clearance 156 mL/min (70-130); Globulin 2.9 g/dL (2.4-3.5); Glucose 167 mg/dL (70-105); Magnesium 2.4 mg/dL (1.6-2.6); Protein, Total 5.6 g/dL (6.0-8.3)
[2020-08-13 05:29] LABS: Anion Gap 11 mmol/L (10-20); Chloride 99 mmol/L (98-107); Potassium 3.8 mmol/L (3.5-5.1); Sodium 147 mmol/L (136-145)
[2020-08-13 05:37] LABS: Carbon Dioxide 41 mmol/L (22-29)
[2020-08-13] MEDS ORDERED: Atropine Sulfate 1 mg/10 ml Syringe ONE (06:50)
[2020-08-13] MEDS: Norepinephrine 8 MG/0.9% NS 250 ML IVPB SCH (07:00)
[2020-08-13] MEDS: Budesonide 0.5 MG/2 ML NEB NEB SCH ×2 (07:24→19:13)
[2020-08-13] MEDS: Pantoprazole 40 MG GRANULES PACKET PER TUBE SCH ×2 (09:38→21:00)
[2020-08-13] MEDS: Enoxaparin Sodium 80 MG/0.8 ML SYRINGE SC SCH ×2 (09:38→21:00)
[2020-08-13] MEDS: clonazePAM 0.5 MG TAB PO SCH ×3 (09:38→21:00)
[2020-08-13] MEDS: glipiZIDE 5 MG TAB PO SCH ×2 (09:39→21:00)
[2020-08-13] MEDS: Ascorbic Acid 500 mg Chewable Tablet PO SCH (09:39)
[2020-08-13] MEDS: Cholecalciferol (Vitamin D3) 400 UNITS TAB PO SCH (09:39)
[2020-08-13] MEDS: metFORMIN 500 MG TAB PO SCH ×2 (09:39→17:10)
[2020-08-13] MEDS: guaiFENesin ER 600 MG TAB PO SCH ×2 (09:40→21:00)
[2020-08-13] MEDS: Zinc Gluconate 50 MG TAB PO SCH (09:40)
[2020-08-13] MEDS: Furosemide 40 MG/4 ML VIAL SLOW IVP SCH (09:40)
[2020-08-13] MEDS: Dexamethasone 4 mg/ml Vial SLOW IVP SCH (09:40)
[2020-08-13] MEDS: Polyethylene Glycol 3350 17 GM Packet PER TUBE SCH (09:41)
[2020-08-13] MEDS: Lantus 1000 UNITS/10 ML VIAL SC SCH ×2 (09:42→21:00)
[2020-08-13] MEDS: Metoprolol Tartrate 25 MG TAB PO SCH ×2 (11:24→21:00)
[2020-08-13] MEDS: Docusate Sodium 100 MG/10 ML UDCUP PO SCH (11:26)
[2020-08-13] MEDS: Fentanyl CADD 100 ML IV SCH (17:02)
[2020-08-13] MEDS: Fluconazole In NaCl,Iso-Osm 200 MG in Premix Bag 1 BAG IVPB SCH (20:00)
[2020-08-13] MEDS: Lorazepam 2 MG/ML VIAL SLOW IVP PRN (20:30)
[2020-08-14] MEDS: Lorazepam 2 MG/ML VIAL SLOW IVP PRN ×4 (01:30→17:57)
[2020-08-14] MEDS: Piperacillin/Tazobactam 3.375 GM in Dextrose 5% in Water 100 ML IVPB SCH ×3 (01:42→17:56)
[2020-08-14] MEDS: Docusate Sodium 100 MG/10 ML UDCUP PO SCH ×2 (01:43→15:27)
[2020-08-14] MEDS: Ivabradine 5 MG TAB PO SCH ×2 (04:09→17:29)
[2020-08-14 04:23] LABS: BUN (Urea Nitrogen) 26 mg/dL (8.9-20.6); Calc. Creatinine Clearance 184 mL/min (70-130); Calcium 7.6 mg/dL (7.8-10.44); Glucose 137 mg/dL (70-105); Magnesium 2.3 mg/dL (1.6-2.6)
[2020-08-14 04:31] LABS: Anion Gap 10 mmol/L (10-20); Carbon Dioxide 39 mmol/L (22-29); Chloride 102 mmol/L (98-107); Potassium 3.5 mmol/L (3.5-5.1); Sodium 147 mmol/L (136-145)
[2020-08-14 04:47] LABS: #Eosinphils 0.1 10x3/uL (0.0-0.5); #Monocytes 0.6 10x3/uL (0.0-1.1); #Neutrophils 11.2 10x3/uL (1.5-8.4); %Basophils 0.1 % (0.0-2.0); %Monocytes 4.1 % (0.0-10.0); %Neutrophils 79.1 % (40.0-75.0); Mean Corpuscular HGB CONC 30.7 G/DL (32.0-36.0); Mean Corpuscular Hemoglobin 28.9 PG (27.0-33.0); Mean Corpuscular Volume 94.2 fl (80.0-100.0); Mean Platelet Volume 11.6 fl (7.4-10.4); Platelet Count 278 10x3/uL (130-400); RBC Distribution Width 14.6 % (11.5-14.5); Red Blood Cell (RBC) Count 2.42 10x6/uL (4.40-5.80); White Blood Cell (WBC) Count 14.1 10x3/uL (4.5-11.0)
[2020-08-14] MEDS: Sodium Chloride 0.9% 1,000 ML IV SCH (06:16)
[2020-08-14] MEDS: Budesonide 0.5 MG/2 ML NEB NEB SCH ×2 (07:07→19:44)
[2020-08-14] MEDS: metFORMIN 500 MG TAB PO SCH ×2 (08:25→17:57)
[2020-08-14] MEDS: Enoxaparin Sodium 80 MG/0.8 ML SYRINGE SC SCH ×2 (08:25→21:18)
[2020-08-14] MEDS: Furosemide 40 MG/4 ML VIAL SLOW IVP SCH (08:25)
[2020-08-14] MEDS: Pantoprazole 40 MG GRANULES PACKET PER TUBE SCH ×2 (08:26→21:20)
[2020-08-14] MEDS: Zinc Gluconate 50 MG TAB PO SCH (08:26)
[2020-08-14] MEDS: clonazePAM 0.5 MG TAB PO SCH ×3 (08:26→21:16)
[2020-08-14] MEDS: Ascorbic Acid 500 mg Chewable Tablet PO SCH (08:26)
[2020-08-14] MEDS: Cholecalciferol (Vitamin D3) 400 UNITS TAB PO SCH (08:26)
[2020-08-14] MEDS: glipiZIDE 5 MG TAB PO SCH ×2 (08:26→21:18)
[2020-08-14] MEDS: Metoprolol Tartrate 25 MG TAB PO SCH ×2 (08:26→21:19)
[2020-08-14] MEDS: guaiFENesin ER 600 MG TAB PO SCH ×2 (08:26→21:19)
[2020-08-14] MEDS: Dexamethasone 4 mg/ml Vial SLOW IVP SCH (08:27)
[2020-08-14] MEDS: Lantus 1000 UNITS/10 ML VIAL SC SCH ×2 (09:46→21:58)
[2020-08-14] MEDS: Polyethylene Glycol 3350 17 GM Packet PER TUBE SCH (10:26)
[2020-08-14] MEDS ORDERED: Fentanyl CADD 100 ML ONE (13:55)
[2020-08-14] MEDS: Fentanyl CADD 100 ML IV SCH (13:56)
[2020-08-14] MEDS: HumaLOG 300 UNITS/3 ML VIAL SC PRN ×2 (16:06→21:59)
[2020-08-14] MEDS: Fluconazole In NaCl,Iso-Osm 200 MG in Premix Bag 1 BAG IVPB SCH (17:21)
[2020-08-15] MEDS: Piperacillin/Tazobactam 3.375 GM in Dextrose 5% in Water 100 ML IVPB SCH ×3 (01:30→17:28)
[2020-08-15] MEDS: Sodium Chloride 0.9% 1,000 ML IV SCH ×4 (03:00→23:00)
[2020-08-15 04:52] LABS: Hemoglobin 7.3 g/dL (13.5-17.5); Mean Corpuscular HGB CONC 29.9 g/dL (32.0-36.0); Mean Corpuscular Hemoglobin 28.9 pg (27.0-33.0); Mean Corpuscular Volume 96.4 fl (81.2-95.1); Mean Platelet Volume 11.4 fl (7.4-10.4); Platelet Count 324 10x3/uL (150-450); RBC Distribution Width 15.4 % (11.5-14.5); Red Blood Cell (RBC) Count 2.53 10x6/uL (4.32-5.72); White Blood Cell (WBC) Count 18.4 10x3/uL (3.5-10.5)
[2020-08-15 05:12] LABS: ALT (SGPT) 24 U/L (8-55); AST (SGOT) 18 U/L (5-34); Albumin 2.9 g/dL (3.5-5.0); Alkaline Phosphatase 67 U/L (40-110); Anion Gap 13 mmol/L (10-20); BUN (Urea Nitrogen) 24 mg/dL (8.9-20.6); Bilirubin, Total 0.4 mg/dL (0.2-1.2); Calc. Creatinine Clearance 199 mL/min (70-130); Calcium 8.1 mg/dL (7.8-10.44); Carbon Dioxide 35 mmol/L (22-29); Chloride 101 mmol/L (98-107); Globulin 2.8 g/dL (2.4-3.5); Glucose 130 mg/dL (70-105); Magnesium 2.3 mg/dL (1.6-2.6); Potassium 3.7 mmol/L (3.5-5.1); Protein, Total 5.7 g/dL (6.0-8.3); Sodium 145 mmol/L (136-145)
[2020-08-15] MEDS: Fentanyl CADD 100 ML IV SCH (05:15)
[2020-08-15] MEDS: Ivabradine 5 MG TAB PO SCH ×2 (05:20→17:28)
[2020-08-15] MEDS: Docusate Sodium 100 MG/10 ML UDCUP PO SCH ×2 (05:20→16:06)
[2020-08-15 06:23] LABS: MDiff Complete? YES
[2020-08-15 06:27] LABS: Band 17 % (5-11); Lymphocytes 11 % (21-51); Metamyelocyte 4 % (0-0); Monocytes 1 % (0-10); Neutrophil 67 % (42-75); Nucleated RBC 2 % (0)
[2020-08-15 06:28] LABS: Anisocytosis MODERATE=16-30 cells (100X) (0-5/hpf); Basophilic Stippling SLIGHT = 1-2 cells (100X) (None Seen); Giant Platelets SLIGHT; Hypochromia SLIGHT = 6-15 cells (100X) (0-5/hpf); Large Platelets SLIGHT; Platelet Morphology Comment Appears Adequate; Poikilocytosis MODERATE=16-30 cells (100X) (0-5/hpf); Polychromasia SLIGHT = 2-3 cells (100X) (0-2/hpf); Toxic Granulation SLIGHT
[2020-08-15] MEDS: Budesonide 0.5 MG/2 ML NEB NEB SCH ×2 (07:00→18:26)
[2020-08-15] MEDS: guaiFENesin ER 600 MG TAB PO SCH ×2 (08:15→21:43)
[2020-08-15] MEDS: clonazePAM 0.5 MG TAB PO SCH ×3 (08:15→21:42)
[2020-08-15] MEDS: Pantoprazole 40 MG GRANULES PACKET PER TUBE SCH ×2 (08:15→21:44)
[2020-08-15] MEDS: glipiZIDE 5 MG TAB PO SCH ×2 (08:15→21:43)
[2020-08-15] MEDS: Zinc Gluconate 50 MG TAB PO SCH (08:15)
[2020-08-15] MEDS: Enoxaparin Sodium 80 MG/0.8 ML SYRINGE SC SCH ×2 (08:15→21:43)
[2020-08-15] MEDS: Metoprolol Tartrate 25 MG TAB PO SCH ×2 (08:15→21:43)
[2020-08-15] MEDS: Dexamethasone 4 mg/ml Vial SLOW IVP SCH (08:16)
[2020-08-15] MEDS: Cholecalciferol (Vitamin D3) 400 UNITS TAB PO SCH (08:16)
[2020-08-15] MEDS: Ascorbic Acid 500 mg Chewable Tablet PO SCH (08:16)
[2020-08-15] MEDS: metFORMIN 500 MG TAB PO SCH ×2 (08:18→17:28)
[2020-08-15] MEDS: Lorazepam 2 MG/ML VIAL SLOW IVP PRN ×4 (09:53→22:05)
[2020-08-15] MEDS: Lantus 1000 UNITS/10 ML VIAL SC SCH ×2 (10:29→21:48)
[2020-08-15] MEDS: Polyethylene Glycol 3350 17 GM Packet PER TUBE SCH (16:06)
[2020-08-15] MEDS: HumaLOG 300 UNITS/3 ML VIAL SC PRN ×2 (16:28→21:49)
[2020-08-15] MEDS: Fluconazole In NaCl,Iso-Osm 200 MG in Premix Bag 1 BAG IVPB SCH (17:29)
[2020-08-16] MEDS: Piperacillin/Tazobactam 3.375 GM in Dextrose 5% in Water 100 ML IVPB SCH ×3 (01:12→17:56)
[2020-08-16] MEDS: Docusate Sodium 100 MG/10 ML UDCUP PO SCH ×2 (02:41→16:00)
[2020-08-16] MEDS: Ivabradine 5 MG TAB PO SCH ×2 (05:17→17:56)
[2020-08-16] MEDS: Fentanyl CADD 100 ML IV SCH (05:30)
[2020-08-16 05:51] LABS: ALT (SGPT) 53 U/L (8-55); AST (SGOT) 43 U/L (5-34); Albumin 2.7 g/dL (3.5-5.0); Alkaline Phosphatase 71 U/L (40-110); BUN (Urea Nitrogen) 19 mg/dL (8.9-20.6); Bilirubin, Total 0.4 mg/dL (0.2-1.2); Calc. Creatinine Clearance 204 mL/min (70-130); Globulin 2.7 g/dL (2.4-3.5); Glucose 127 mg/dL (70-105); Hemoglobin 7.1 g/dL (13.5-17.5); Magnesium 2.1 mg/dL (1.6-2.6); Mean Corpuscular HGB CONC 30.1 g/dL (32.0-36.0); Mean Corpuscular Hemoglobin 29.5 pg (27.0-33.0); Mean Corpuscular Volume 97.9 fl (81.2-95.1); Mean Platelet Volume 10.6 fl (7.4-10.4); Platelet Count 315 10x3/uL (150-450); Protein, Total 5.4 g/dL (6.0-8.3); RBC Distribution Width 16.6 % (11.5-14.5); Red Blood Cell (RBC) Count 2.41 10x6/uL (4.32-5.72); White Blood Cell (WBC) Count 18.5 10x3/uL (3.5-10.5)
[2020-08-16 05:59] LABS: Anion Gap 10 mmol/L (10-20); Carbon Dioxide 37 mmol/L (22-29); Chloride 101 mmol/L (98-107); Potassium 3.7 mmol/L (3.5-5.1); Sodium 144 mmol/L (136-145)
[2020-08-16 06:15] LABS: MDiff Complete? YES
[2020-08-16 06:18] LABS: Band 15 % (5-11); Lymphocytes 12 % (21-51); Monocytes 3 % (0-10); Neutrophil 63 % (42-75)
[2020-08-16 06:19] LABS: Anisocytosis MODERATE=16-30 cells (100X) (0-5/hpf); Eosinophils 1 % (0-10); Metamyelocyte 6 % (0-0); Nucleated RBC 3 % (0); Poikilocytosis MODERATE=16-30 cells (100X) (0-5/hpf)
[2020-08-16 06:20] LABS: Basophilic Stippling SLIGHT = 1-2 cells (100X) (None Seen); Hypochromia SLIGHT = 6-15 cells (100X) (0-5/hpf); Platelet Morphology Comment Appears Adequate; Polychromasia SLIGHT = 2-3 cells (100X) (0-2/hpf)
[2020-08-16] MEDS: Budesonide 0.5 MG/2 ML NEB NEB SCH ×2 (07:18→18:51)
[2020-08-16] MEDS: Enoxaparin Sodium 80 MG/0.8 ML SYRINGE SC SCH ×2 (08:10→21:35)
[2020-08-16] MEDS: guaiFENesin ER 600 MG TAB PO SCH ×2 (08:11→21:36)
[2020-08-16] MEDS: Zinc Gluconate 50 MG TAB PO SCH (08:11)
[2020-08-16] MEDS: Pantoprazole 40 MG GRANULES PACKET PER TUBE SCH ×2 (08:11→21:36)
[2020-08-16] MEDS: Dexamethasone 4 mg/ml Vial SLOW IVP SCH (08:11)
[2020-08-16] MEDS: glipiZIDE 5 MG TAB PO SCH ×2 (08:11→21:35)
[2020-08-16] MEDS: Cholecalciferol (Vitamin D3) 400 UNITS TAB PO SCH (08:12)
[2020-08-16] MEDS: metFORMIN 500 MG TAB PO SCH ×2 (08:12→17:56)
[2020-08-16] MEDS: Metoprolol Tartrate 25 MG TAB PO SCH ×2 (08:12→21:36)
[2020-08-16] MEDS: clonazePAM 0.5 MG TAB PO SCH ×3 (08:12→21:34)
[2020-08-16] MEDS: Ascorbic Acid 500 mg Chewable Tablet PO SCH (08:12)
[2020-08-16] MEDS: Lantus 1000 UNITS/10 ML VIAL SC SCH ×2 (08:14→22:09)
[2020-08-16] MEDS: Lorazepam 2 MG/ML VIAL SLOW IVP PRN (12:47)
[2020-08-16] MEDS: HumaLOG 300 UNITS/3 ML VIAL SC PRN ×2 (16:00→22:08)
[2020-08-16] MEDS: Polyethylene Glycol 3350 17 GM Packet PER TUBE SCH (16:00)
[2020-08-16] MEDS: Fluconazole In NaCl,Iso-Osm 200 MG in Premix Bag 1 BAG IVPB SCH (17:56)
[2020-08-16] MEDS: Sodium Chloride 0.9% 1,000 ML IV SCH (20:30)
[2020-08-17] MEDS: Piperacillin/Tazobactam 3.375 GM in Dextrose 5% in Water 100 ML IVPB SCH ×3 (00:39→15:50)
[2020-08-17] MEDS: Lorazepam 2 MG/ML VIAL SLOW IVP PRN ×2 (00:40→05:15)
[2020-08-17] MEDS: Docusate Sodium 100 MG/10 ML UDCUP PO SCH ×2 (05:14→09:32)
[2020-08-17] MEDS: Ivabradine 5 MG TAB PO SCH ×2 (05:14→15:50)
[2020-08-17 05:45] LABS: Hemoglobin 6.8 g/dL (13.5-17.5); Mean Corpuscular HGB CONC 30.6 g/dL (32.0-36.0); Mean Corpuscular Hemoglobin 29.4 pg (27.0-33.0); Mean Corpuscular Volume 96.1 fl (81.2-95.1); Mean Platelet Volume 10.8 fl (7.4-10.4); Platelet Count 295 10x3/uL (150-450); RBC Distribution Width 17.1 % (11.5-14.5); Red Blood Cell (RBC) Count 2.31 10x6/uL (4.32-5.72); White Blood Cell (WBC) Count 16.8 10x3/uL (3.5-10.5)
[2020-08-17 06:46] LABS: MDiff Complete? YES
[2020-08-17 06:49] LABS: Anisocytosis MODERATE=16-30 cells (100X) (0-5/hpf); Band 23 % (5-11); Basophilic Stippling SLIGHT = 1-2 cells (100X) (None Seen); Eosinophils 2 % (0-10); Lymphocytes 13 % (21-51); Metamyelocyte 4 % (0-0); Monocytes 4 % (0-10); Neutrophil 54 % (42-75); Platelet Morphology Comment Appears Adequate; Poikilocytosis MODERATE=16-30 cells (100X) (0-5/hpf); Polychromasia SLIGHT = 2-3 cells (100X) (0-2/hpf)
[2020-08-17] MEDS: Budesonide 0.5 MG/2 ML NEB NEB SCH ×2 (06:49→18:36)
[2020-08-17 08:35] LABS: Anion Gap 11 mmol/L (10-20); BUN (Urea Nitrogen) 15 mg/dL (8.9-20.6); Calc. Creatinine Clearance 226 mL/min (70-130); Calcium 7.9 mg/dL (7.8-10.44); Carbon Dioxide 37 mmol/L (22-29); Chloride 98 mmol/L (98-107); Glucose 181 mg/dL (70-105); Potassium 3.2 mmol/L (3.5-5.1); Sodium 143 mmol/L (136-145)
[2020-08-17] MEDS: Pantoprazole 40 MG GRANULES PACKET PER TUBE SCH ×2 (09:27→21:13)
[2020-08-17] MEDS: clonazePAM 0.5 MG TAB PO SCH ×3 (09:27→21:12)
[2020-08-17] MEDS: guaiFENesin ER 600 MG TAB PO SCH ×2 (09:27→21:13)
[2020-08-17] MEDS: Dexamethasone 4 mg/ml Vial SLOW IVP SCH (09:27)
[2020-08-17] MEDS: Zinc Gluconate 50 MG TAB PO SCH (09:28)
[2020-08-17] MEDS: metFORMIN 500 MG TAB PO SCH ×2 (09:28→15:50)
[2020-08-17] MEDS: Enoxaparin Sodium 80 MG/0.8 ML SYRINGE SC SCH ×2 (09:28→21:12)
[2020-08-17] MEDS: glipiZIDE 5 MG TAB PO SCH ×2 (09:28→21:12)
[2020-08-17] MEDS: Magnesium Oxide 400 MG TAB PO SCH (09:28)
[2020-08-17] MEDS: Cholecalciferol (Vitamin D3) 400 UNITS TAB PO SCH (09:28)
[2020-08-17] MEDS: Ascorbic Acid 500 mg Chewable Tablet PO SCH (09:28)
[2020-08-17] MEDS: Metoprolol Tartrate 25 MG TAB PO SCH ×2 (09:28→21:13)
[2020-08-17] MEDS: Polyethylene Glycol 3350 17 GM Packet PER TUBE SCH (09:30)
[2020-08-17] MEDS: Lantus 1000 UNITS/10 ML VIAL SC SCH ×2 (09:31→22:04)
[2020-08-17] MEDS: Sodium Chloride 0.9% 1,000 ML IV SCH ×3 (09:32→21:14)
[2020-08-17] MEDS: oxyCODONE 5 MG TAB PO PRN (12:13)
[2020-08-17] MEDS ORDERED: Potassium Bicarbonate/Cit Ac 20 MEQ TAB PO SCH (12:15)
[2020-08-17] MEDS: HumaLOG 300 UNITS/3 ML VIAL SC PRN (17:14)
[2020-08-17] MEDS: Fluconazole In NaCl,Iso-Osm 200 MG in Premix Bag 1 BAG IVPB SCH (17:17)
[2020-08-17] MEDS ORDERED: Enoxaparin Sodium 80 MG/0.8 ML SYRINGE ONE (21:09)
[2020-08-18] MEDS: Sodium Chloride 0.9% 1,000 ML IV SCH ×2 (01:30→15:46)
[2020-08-18] MEDS: Piperacillin/Tazobactam 3.375 GM in Dextrose 5% in Water 100 ML IVPB SCH ×3 (02:00→17:18)
[2020-08-18] MEDS: Fentanyl CADD 100 ML IV SCH (02:30)
[2020-08-18] MEDS: Docusate Sodium 100 MG/10 ML UDCUP PO SCH ×2 (02:51→15:46)
[2020-08-18] MEDS ORDERED: Lorazepam 2 MG/ML VIAL ONE (04:08)
[2020-08-18] MEDS: Ivabradine 5 MG TAB PO SCH ×2 (04:10→17:17)
[2020-08-18] MEDS: Lorazepam 2 MG/ML VIAL SLOW IVP PRN (04:10)
[2020-08-18 05:31] LABS: BUN (Urea Nitrogen) 14 mg/dL (8.9-20.6); Calc. Creatinine Clearance 242 mL/min (70-130); Calcium 7.9 mg/dL (7.8-10.44); Glucose 145 mg/dL (70-105)
[2020-08-18 05:39] LABS: Hemoglobin 7.8 g/dL (13.5-17.5); Mean Corpuscular HGB CONC 30.2 g/dL (32.0-36.0); Mean Corpuscular Hemoglobin 29.2 pg (27.0-33.0); Mean Corpuscular Volume 96.6 fl (81.2-95.1); Mean Platelet Volume 11.4 fl (7.4-10.4); Platelet Count 277 10x3/uL (150-450); RBC Distribution Width 18.7 % (11.5-14.5); Red Blood Cell (RBC) Count 2.67 10x6/uL (4.32-5.72); White Blood Cell (WBC) Count 15.9 10x3/uL (3.5-10.5)
[2020-08-18 05:43] LABS: Anion Gap 16 mmol/L (10-20); Carbon Dioxide 34 mmol/L (22-29); Chloride 98 mmol/L (98-107); Potassium 4.2 mmol/L (3.5-5.1); Sodium 144 mmol/L (136-145)
[2020-08-18 06:35] LABS: Band 3 % (5-11); Eosinophils 1 % (0-10); Lymphocytes 11 % (21-51); Metamyelocyte 3 % (0-0); Monocytes 6 % (0-10); Myelocyte 3 % (0-0); Nucleated RBC 1 % (0); Reactive Lymphocytes 1 % (0-10)
[2020-08-18 06:36] LABS: Basophilic Stippling MODERATE = 3-5 cells (100X) (None Seen)
[2020-08-18 06:37] LABS: Polychromasia SLIGHT = 2-3 cells (100X) (0-2/hpf)
[2020-08-18 06:40] LABS: Reflex for Review?? YES
[2020-08-18 06:57] LABS: MDiff Complete? YES; Neutrophil 72 % (42-75)
[2020-08-18] MEDS: Budesonide 0.5 MG/2 ML NEB NEB SCH ×2 (07:17→18:40)
[2020-08-18] MEDS: metFORMIN 500 MG TAB PO SCH ×2 (09:09→17:18)
[2020-08-18] MEDS: clonazePAM 0.5 MG TAB PO SCH ×3 (09:10→20:23)
[2020-08-18] MEDS: Ascorbic Acid 500 mg Chewable Tablet PO SCH (09:10)
[2020-08-18] MEDS: Lantus 1000 UNITS/10 ML VIAL SC SCH ×2 (09:11→20:25)
[2020-08-18] MEDS: Enoxaparin Sodium 80 MG/0.8 ML SYRINGE SC SCH ×2 (09:13→20:23)
[2020-08-18] MEDS: Dexamethasone 4 mg/ml Vial SLOW IVP SCH (09:15)
[2020-08-18] MEDS: Magnesium Oxide 400 MG TAB PO SCH (09:15)
[2020-08-18] MEDS: guaiFENesin ER 600 MG TAB PO SCH ×2 (09:15→20:23)
[2020-08-18] MEDS: Cholecalciferol (Vitamin D3) 400 UNITS TAB PO SCH (09:16)
[2020-08-18] MEDS: glipiZIDE 5 MG TAB PO SCH ×2 (09:16→20:24)
[2020-08-18] MEDS: Zinc Gluconate 50 MG TAB PO SCH (09:16)
[2020-08-18] MEDS: Pantoprazole 40 MG GRANULES PACKET PER TUBE SCH ×2 (09:16→20:24)
[2020-08-18] MEDS: Polyethylene Glycol 3350 17 GM Packet PER TUBE SCH (09:17)
[2020-08-18] MEDS: Metoprolol Tartrate 25 MG TAB PO SCH ×2 (09:35→20:24)
[2020-08-18] MEDS: HumaLOG 300 UNITS/3 ML VIAL SC PRN ×2 (10:48→17:17)
[2020-08-18] MEDS ORDERED: Fentanyl BOLUS 250 ML IVPB PRN (14:45)
[2020-08-18] MEDS: Fluconazole In NaCl,Iso-Osm 200 MG in Premix Bag 1 BAG IVPB SCH (17:17)
[2020-08-19] MEDS: Piperacillin/Tazobactam 3.375 GM in Dextrose 5% in Water 100 ML IVPB SCH ×3 (01:38→17:18)
[2020-08-19] MEDS: Docusate Sodium 100 MG/10 ML UDCUP PO SCH ×2 (02:59→17:18)
[2020-08-19 03:31] LABS: Hemoglobin 7.6 g/dL (13.5-17.5); MDiff Complete? YES; Mean Corpuscular Hemoglobin 29.3 pg (27.0-33.0); Mean Corpuscular Volume 97.7 fl (81.2-95.1); Mean Platelet Volume 10.7 fl (7.4-10.4); Platelet Count 242 10x3/uL (150-450); RBC Distribution Width 18.7 % (11.5-14.5); Red Blood Cell (RBC) Count 2.59 10x6/uL (4.32-5.72); White Blood Cell (WBC) Count 11.9 10x3/uL (3.5-10.5)
[2020-08-19 03:48] LABS: BUN (Urea Nitrogen) 14 mg/dL (8.9-20.6); Calc. Creatinine Clearance 263 mL/min (70-130); Calcium 8.1 mg/dL (7.8-10.44); Glucose 78 mg/dL (70-105)
[2020-08-19 03:52] LABS: Band 4 % (5-11); Lymphocytes 9 % (21-51); Metamyelocyte 3 % (0-0); Monocytes 5 % (0-10); Myelocyte 1 % (0-0); Neutrophil 78 % (42-75); Nucleated RBC 4 % (0)
[2020-08-19 03:53] LABS: Basophilic Stippling MODERATE = 3-5 cells (100X) (None Seen); Polychromasia SLIGHT = 2-3 cells (100X) (0-2/hpf)
[2020-08-19 03:55] LABS: Anion Gap 14 mmol/L (10-20); Carbon Dioxide 38 mmol/L (22-29); Chloride 95 mmol/L (98-107); Potassium 4.3 mmol/L (3.5-5.1); Sodium 143 mmol/L (136-145)
[2020-08-19] MEDS ORDERED: Fentanyl CADD 100 ML IV SCH (04:45)
[2020-08-19] MEDS: Ivabradine 5 MG TAB PO SCH ×2 (05:09→17:19)
[2020-08-19] MEDS: Budesonide 0.5 MG/2 ML NEB NEB SCH (07:18)
[2020-08-19] MEDS: Pantoprazole 40 MG GRANULES PACKET PER TUBE SCH ×3 (08:01→21:34)
[2020-08-19] MEDS: clonazePAM 0.5 MG TAB PO SCH ×4 (08:01→21:33)
[2020-08-19] MEDS: Metoprolol Tartrate 25 MG TAB PO SCH ×3 (08:01→21:34)
[2020-08-19] MEDS: Zinc Gluconate 50 MG TAB PO SCH (08:01)
[2020-08-19] MEDS: Dexamethasone 4 mg/ml Vial SLOW IVP SCH ×2 (08:01→10:29)
[2020-08-19] MEDS: Ascorbic Acid 500 mg Chewable Tablet PO SCH (08:01)
[2020-08-19] MEDS: glipiZIDE 5 MG TAB PO SCH ×3 (08:01→21:31)
[2020-08-19] MEDS: metFORMIN 500 MG TAB PO SCH ×2 (08:02→17:19)
[2020-08-19] MEDS: Enoxaparin Sodium 80 MG/0.8 ML SYRINGE SC SCH ×2 (08:02→20:49)
[2020-08-19] MEDS: Magnesium Oxide 400 MG TAB PO SCH (08:02)
[2020-08-19] MEDS: Cholecalciferol (Vitamin D3) 400 UNITS TAB PO SCH (08:02)
[2020-08-19] MEDS: Lantus 1000 UNITS/10 ML VIAL SC SCH ×2 (08:03→20:50)
[2020-08-19] MEDS: guaiFENesin ER 600 MG TAB PO SCH ×3 (08:08→21:33)
[2020-08-19] MEDS: Polyethylene Glycol 3350 17 GM Packet PER TUBE SCH (10:29)
[2020-08-19] MEDS: Dextrose 50% Abboject 50 ML SYRINGE SLOW IVP PRN (11:53)
[2020-08-19] MEDS ORDERED: PROPOFOL 20 ML ONE (12:45)
[2020-08-19] MEDS ORDERED: Rocuronium Bromide 10 MG/ML (10ML VIAL) ONE ×2 (12:45→13:51)
[2020-08-19] MEDS ORDERED: Lidocaine 1% w/Epinephrine 1:100K 20 ML VIAL ONE (13:20)
[2020-08-19] MEDS: Fluconazole In NaCl,Iso-Osm 200 MG in Premix Bag 1 BAG IVPB SCH (17:56)
[2020-08-20] MEDS: Budesonide 0.5 MG/2 ML NEB NEB SCH ×3 (00:08→19:20)
[2020-08-20] MEDS: Sodium Chloride 0.9% 1,000 ML IV SCH (00:27)
[2020-08-20] MEDS: Docusate Sodium 100 MG/10 ML UDCUP PO SCH ×2 (00:29→14:36)
[2020-08-20] MEDS: Piperacillin/Tazobactam 3.375 GM in Dextrose 5% in Water 100 ML IVPB SCH ×3 (01:11→16:35)
[2020-08-20] MEDS: Dextrose 50% Abboject 50 ML SYRINGE SLOW IVP PRN (03:58)
[2020-08-20] MEDS: Ivabradine 5 MG TAB PO SCH ×2 (04:26→16:36)
[2020-08-20] MEDS: Enoxaparin Sodium 80 MG/0.8 ML SYRINGE SC SCH ×2 (08:53→20:52)
[2020-08-20] MEDS: guaiFENesin ER 600 MG TAB PO SCH ×2 (08:54→20:52)
[2020-08-20] MEDS: Dexamethasone 4 mg/ml Vial SLOW IVP SCH (08:54)
[2020-08-20] MEDS: Ascorbic Acid 500 mg Chewable Tablet PO SCH (08:54)
[2020-08-20] MEDS: clonazePAM 0.5 MG TAB PO SCH ×3 (08:54→20:51)
[2020-08-20] MEDS: Pantoprazole 40 MG GRANULES PACKET PER TUBE SCH ×2 (08:54→20:55)
[2020-08-20] MEDS: Metoprolol Tartrate 25 MG TAB PO SCH ×2 (08:54→21:50)
[2020-08-20] MEDS: Zinc Gluconate 50 MG TAB PO SCH (08:55)
[2020-08-20] MEDS: glipiZIDE 5 MG TAB PO SCH ×2 (08:55→20:52)
[2020-08-20] MEDS: Lantus 1000 UNITS/10 ML VIAL SC SCH ×2 (08:55→22:40)
[2020-08-20] MEDS: Cholecalciferol (Vitamin D3) 400 UNITS TAB PO SCH (08:55)
[2020-08-20] MEDS: Magnesium Oxide 400 MG TAB PO SCH (08:55)
[2020-08-20] MEDS: metFORMIN 500 MG TAB PO SCH (08:55)
[2020-08-20] MEDS: Polyethylene Glycol 3350 17 GM Packet PER TUBE SCH (08:57)
[2020-08-20] MEDS ORDERED: Furosemide 40 MG/4 ML VIAL SLOW IVP SCH (09:00)
[2020-08-20 09:41] LABS: BUN (Urea Nitrogen) 8 mg/dL (8.9-20.6); Calc. Creatinine Clearance 268 mL/min (70-130); Calcium 7.5 mg/dL (7.8-10.44); Carbon Dioxide Greater than 37 mmol/L (22-29); Chloride 99 mmol/L (98-107); Glucose 73 mg/dL (70-105); Potassium 3.8 mmol/L (3.5-5.1); Sodium 146 mmol/L (136-145)
[2020-08-20 09:42] LABS: Anion Gap 12 mmol/L (10-20)
[2020-08-20 09:52] LABS: Mean Corpuscular HGB CONC 29.2 g/dL (32.0-36.0); Mean Corpuscular Hemoglobin 28.8 pg (27.0-33.0); Mean Corpuscular Volume 98.8 fl (81.2-95.1); Mean Platelet Volume 10.6 fl (7.4-10.4); Platelet Count 259 10x3/uL (150-450); RBC Distribution Width 18.4 % (11.5-14.5); Red Blood Cell (RBC) Count 2.43 10x6/uL (4.32-5.72); White Blood Cell (WBC) Count 8.5 10x3/uL (3.5-10.5)
[2020-08-20 10:17] LABS: MDiff Complete? YES
[2020-08-20 10:20] LABS: Band 4 % (5-11); Eosinophils 1 % (0-10); Lymphocytes 7 % (21-51); Monocytes 4 % (0-10); Neutrophil 83 % (42-75); Reactive Lymphocytes 1 % (0-10)
[2020-08-20 10:22] LABS: Hypochromia SLIGHT = 6-15 cells (100X) (0-5/hpf); Polychromasia SLIGHT = 2-3 cells (100X) (0-2/hpf)
[2020-08-20 10:23] LABS: Platelet Morphology Comment Appears Adequate
[2020-08-20] MEDS: Morphine 2 MG/ML VIAL SLOW IVP PRN ×3 (12:34→20:53)
[2020-08-20] MEDS: Furosemide 40 MG/4 ML VIAL SLOW IVP SCH (14:36)
[2020-08-21] MEDS: Morphine 2 MG/ML VIAL SLOW IVP PRN ×2 (01:12→16:40)
[2020-08-21] MEDS: Lorazepam 2 MG/ML VIAL SLOW IVP PRN ×2 (01:48→03:37)
[2020-08-21] MEDS: Piperacillin/Tazobactam 3.375 GM in Dextrose 5% in Water 100 ML IVPB SCH ×2 (02:03→10:42)
[2020-08-21] MEDS: Docusate Sodium 100 MG/10 ML UDCUP PO SCH ×3 (02:12→20:52)
[2020-08-21] MEDS: Ivabradine 5 MG TAB PO SCH ×2 (05:38→16:42)
[2020-08-21] MEDS: Furosemide 40 MG/4 ML VIAL SLOW IVP SCH ×2 (05:38→15:04)
[2020-08-21] MEDS: Budesonide 0.5 MG/2 ML NEB NEB SCH ×2 (07:41→20:00)
[2020-08-21 09:19] LABS: #Eosinphils 0.1 10x3/uL (0.0-0.5); #Monocytes 0.6 10x3/uL (0.0-1.1); #Neutrophils 5.9 10x3/uL (1.5-8.4); %Basophils 0.1 % (0.0-2.0); %Eosinophils 1.1 % (0.0-6.0); %Lymphocytes 9.4 % (18.0-47.0); %Monocytes 7.5 % (0.0-10.0); %Neutrophils 79.1 % (40.0-75.0); Hemoglobin 7.5 g/dL (13.5-17.5); Mean Corpuscular HGB CONC 30.2 g/dL (32.0-36.0); Mean Corpuscular Hemoglobin 29.4 pg (27.0-33.0); Mean Corpuscular Volume 97.3 fl (81.2-95.1); Mean Platelet Volume 10.2 fl (7.4-10.4); Platelet Count 274 10x3/uL (150-450); RBC Distribution Width 19.1 % (11.5-14.5); Red Blood Cell (RBC) Count 2.55 10x6/uL (4.32-5.72); White Blood Cell (WBC) Count 7.4 10x3/uL (3.5-10.5)
[2020-08-21 09:25] LABS: Anion Gap 17 mmol/L (10-20); Chloride 90 mmol/L (98-107); Potassium 3.5 mmol/L (3.5-5.1); Sodium 145 mmol/L (136-145)
[2020-08-21 09:31] LABS: BUN (Urea Nitrogen) 14 mg/dL (8.9-20.6); Calc. Creatinine Clearance 248 mL/min (70-130); Calcium 8.3 mg/dL (7.8-10.44); Carbon Dioxide Greater than 37 mmol/L (22-29); Glucose 125 mg/dL (70-105)
[2020-08-21] MEDS: Zinc Gluconate 50 MG TAB PO SCH (10:39)
[2020-08-21] MEDS: guaiFENesin ER 600 MG TAB PO SCH ×2 (10:39→21:02)
[2020-08-21] MEDS: Ascorbic Acid 500 mg Chewable Tablet PO SCH (10:40)
[2020-08-21] MEDS: metFORMIN 500 MG TAB PO SCH ×3 (10:41→20:50)
[2020-08-21] MEDS: Dexamethasone 4 mg/ml Vial SLOW IVP SCH (10:41)
[2020-08-21] MEDS: Cholecalciferol (Vitamin D3) 400 UNITS TAB PO SCH (10:41)
[2020-08-21] MEDS: Pantoprazole 40 MG GRANULES PACKET PER TUBE SCH ×2 (10:41→21:05)
[2020-08-21] MEDS: Magnesium Oxide 400 MG TAB PO SCH (10:42)
[2020-08-21] MEDS: Sodium Chloride 0.9% 1,000 ML IV SCH ×3 (10:46→20:51)
[2020-08-21] MEDS: Enoxaparin Sodium 80 MG/0.8 ML SYRINGE SC SCH ×2 (10:46→20:51)
[2020-08-21] MEDS: clonazePAM 0.5 MG TAB PO SCH ×2 (10:47→15:06)
[2020-08-21] MEDS: Lantus 1000 UNITS/10 ML VIAL SC SCH ×2 (10:47→21:02)
[2020-08-21] MEDS: Polyethylene Glycol 3350 17 GM Packet PER TUBE SCH (10:48)
[2020-08-21] MEDS: glipiZIDE 5 MG TAB PO SCH ×2 (10:48→21:02)
[2020-08-21] MEDS: Metoprolol Tartrate 25 MG TAB PO SCH ×2 (10:52→21:05)
[2020-08-21] MEDS: Sodium Chloride 3% (15 ML) NEB NEB SCH ×3 (13:33→23:10)
[2020-08-21] MEDS: HumaLOG 300 UNITS/3 ML VIAL SC PRN ×2 (17:14→21:05)
[2020-08-21] MEDS: Fluconazole In NaCl,Iso-Osm 200 MG in Premix Bag 1 BAG IVPB SCH (20:50)
[2020-08-22] MEDS: Sodium Chloride 3% (15 ML) NEB NEB SCH ×6 (03:00→22:30)
[2020-08-22 03:33] LABS: #Eosinphils 0.1 10x3/uL (0.0-0.5); #Monocytes 0.7 10x3/uL (0.0-1.1); #Neutrophils 6.2 10x3/uL (1.5-8.4); %Eosinophils 0.8 % (0.0-6.0); %Monocytes 8.6 % (0.0-10.0); %Neutrophils 78.7 % (40.0-75.0); Hemoglobin 7.3 g/dL (13.5-17.5); Mean Corpuscular Hemoglobin 28.7 pg (27.0-33.0); Mean Corpuscular Volume 99.2 fl (81.2-95.1); Mean Platelet Volume 10.3 fl (7.4-10.4); Platelet Count 275 10x3/uL (150-450); RBC Distribution Width 19.6 % (11.5-14.5); Red Blood Cell (RBC) Count 2.54 10x6/uL (4.32-5.72); White Blood Cell (WBC) Count 7.9 10x3/uL (3.5-10.5)
[2020-08-22 03:39] LABS: BUN (Urea Nitrogen) 20 mg/dL (8.9-20.6); Calc. Creatinine Clearance 260 mL/min (70-130); Calcium 8.4 mg/dL (7.8-10.44); Glucose 82 mg/dL (70-105)
[2020-08-22 03:46] LABS: Anion Gap 11 mmol/L (10-20); Chloride 92 mmol/L (98-107); Potassium 3.8 mmol/L (3.5-5.1); Sodium 145 mmol/L (136-145)
[2020-08-22 03:49] LABS: Carbon Dioxide 46 mmol/L (22-29)
[2020-08-22] MEDS: Ivabradine 5 MG TAB PO SCH ×2 (05:59→17:58)
[2020-08-22] MEDS: Furosemide 40 MG/4 ML VIAL SLOW IVP SCH ×2 (06:00→15:10)
[2020-08-22] MEDS: Budesonide 0.5 MG/2 ML NEB NEB SCH ×2 (07:25→19:02)
[2020-08-22] MEDS: metFORMIN 500 MG TAB PO SCH ×2 (09:19→10:36)
[2020-08-22] MEDS: Cholecalciferol (Vitamin D3) 400 UNITS TAB PO SCH (09:20)
[2020-08-22] MEDS: glipiZIDE 5 MG TAB PO SCH ×2 (09:20→10:36)
[2020-08-22] MEDS: Magnesium Oxide 400 MG TAB PO SCH (09:20)
[2020-08-22] MEDS: Potassium Chloride 20 MEQ TAB PER TUBE SCH (09:20)
[2020-08-22] MEDS: Pantoprazole 40 MG GRANULES PACKET PER TUBE SCH ×2 (09:20→20:51)
[2020-08-22] MEDS: Zinc Gluconate 50 MG TAB PO SCH (09:20)
[2020-08-22] MEDS: Metoprolol Tartrate 25 MG TAB PO SCH ×2 (09:20→20:51)
[2020-08-22] MEDS: Ascorbic Acid 500 mg Chewable Tablet PO SCH (09:20)
[2020-08-22] MEDS: guaiFENesin ER 600 MG TAB PO SCH ×2 (09:20→20:50)
[2020-08-22] MEDS: Polyethylene Glycol 3350 17 GM Packet PER TUBE SCH (09:21)
[2020-08-22] MEDS: Enoxaparin Sodium 80 MG/0.8 ML SYRINGE SC SCH ×2 (09:26→10:36)
[2020-08-22] MEDS: Docusate Sodium 100 MG/10 ML UDCUP PO SCH ×2 (10:37→20:52)
[2020-08-22] MEDS ORDERED: Lantus 1000 UNITS/10 ML VIAL SC SCH (11:00)
[2020-08-22 11:20] LABS: Actual Bicarbonate (HCO3a) 49.8 mEq/L (22-28); Base Excess (BEa) 21.7 mEq/L (-2.0 to +3.0); CO2 Tension 86.3 mmHg (35.0-45.0); Carboxyhemoglobin (COHb) 1.9 gm% (0.0-3.0); Hemoglobin (Hb) 8.4 g/dL (14.0-18.0); Potassium - ABG Lab 3.8 mmol/L (3.70-5.30); Puncture Site RRA; pH, Arterial 7.38 (7.35-7.45)
[2020-08-22] MEDS: Morphine 2 MG/ML VIAL SLOW IVP PRN (17:57)
[2020-08-22] MEDS: Lantus 1000 UNITS/10 ML VIAL SC SCH ×2 (20:34→20:50)
[2020-08-23 04:06] LABS: BUN (Urea Nitrogen) 19 mg/dL (8.9-20.6); Calc. Creatinine Clearance 213 mL/min (70-130); Calcium 8.2 mg/dL (7.8-10.44); Glucose 149 mg/dL (70-105)
[2020-08-23 04:13] LABS: Anion Gap 16 mmol/L (10-20); Carbon Dioxide 37 mmol/L (22-29); Potassium 4.3 mmol/L (3.5-5.1); Sodium 145 mmol/L (136-145)
[2020-08-23 04:24] LABS: Chloride 96 mmol/L (98-107)
[2020-08-23] MEDS: Sodium Chloride 3% (15 ML) NEB NEB SCH ×4 (04:35→20:45)
[2020-08-23 04:48] LABS: #Eosinphils 0.1 10x3/uL (0.0-0.5); #Monocytes 0.6 10x3/uL (0.0-1.1); #Neutrophils 5.2 10x3/uL (1.5-8.4); %Basophils 0.1 % (0.0-2.0); %Eosinophils 1.7 % (0.0-6.0); %Lymphocytes 12.2 % (18.0-47.0); %Monocytes 8.2 % (0.0-10.0); %Neutrophils 76.3 % (40.0-75.0); Hemoglobin 6.6 g/dL (13.5-17.5); Mean Corpuscular HGB CONC 29.2 g/dL (32.0-36.0); Mean Corpuscular Hemoglobin 29.1 pg (27.0-33.0); Mean Corpuscular Volume 99.6 fl (81.2-95.1); Mean Platelet Volume 10.1 fl (7.4-10.4); Platelet Count 279 10x3/uL (150-450); RBC Distribution Width 19.4 % (11.5-14.5); Red Blood Cell (RBC) Count 2.27 10x6/uL (4.32-5.72); White Blood Cell (WBC) Count 6.9 10x3/uL (3.5-10.5)
[2020-08-23] MEDS: Ivabradine 5 MG TAB PO SCH ×2 (05:42→16:55)
[2020-08-23] MEDS: Furosemide 40 MG/4 ML VIAL SLOW IVP SCH ×2 (05:43→13:33)
[2020-08-23] MEDS: Budesonide 0.5 MG/2 ML NEB NEB SCH ×2 (07:04→18:34)
[2020-08-23] MEDS: Polyethylene Glycol 3350 17 GM Packet PER TUBE SCH (08:09)
[2020-08-23] MEDS: guaiFENesin ER 600 MG TAB PO SCH ×3 (08:09→20:45)
[2020-08-23] MEDS: Ascorbic Acid 500 mg Chewable Tablet PO SCH ×2 (08:09→13:35)
[2020-08-23] MEDS: Zinc Gluconate 50 MG TAB PO SCH ×2 (08:09→13:37)
[2020-08-23] MEDS: Cholecalciferol (Vitamin D3) 400 UNITS TAB PO SCH ×2 (08:09→13:35)
[2020-08-23] MEDS: Metoprolol Tartrate 25 MG TAB PO SCH ×3 (08:09→20:46)
[2020-08-23] MEDS: Potassium Chloride 20 MEQ TAB PER TUBE SCH ×2 (08:09→13:35)
[2020-08-23] MEDS: Pantoprazole 40 MG GRANULES PACKET PER TUBE SCH (08:09)
[2020-08-23] MEDS: Magnesium Oxide 400 MG TAB PO SCH ×2 (08:09→13:37)
[2020-08-23] MEDS: Lantus 1000 UNITS/10 ML VIAL SC SCH ×2 (08:14→20:45)
[2020-08-23] MEDS: Docusate Sodium 100 MG/10 ML UDCUP PO SCH (08:23)
[2020-08-23] MEDS: Acetaminophen 325 MG TAB PO PRN (11:57)
[2020-08-23 13:53] LABS: Prothrombin Time 10.8 sec (9.5-12.1)
[2020-08-23 13:56] LABS: Hemoglobin 8.4 g/dL (13.5-17.5); Platelet Count 279 10x3/uL (150-450)
[2020-08-23] MEDS: Pantoprazole 40 MG VIAL IVP SCH (20:46)
[2020-08-23] MEDS: Metoprolol Tartrate 5 MG/5 ML VIAL IVP PRN (20:47)
[2020-08-23] MEDS: Morphine 2 MG/ML VIAL SLOW IVP PRN (20:47)
[2020-08-24 00:40] LABS: Hemoglobin 9.5 g/dL (13.5-17.5); Platelet Count 256 10x3/uL (150-450)
[2020-08-24] MEDS: Morphine 2 MG/ML VIAL SLOW IVP PRN ×3 (00:45→16:45)
[2020-08-24] MEDS: Budesonide 0.5 MG/2 ML NEB NEB SCH ×2 (07:45→18:45)
[2020-08-24] MEDS: Lantus 1000 UNITS/10 ML VIAL SC SCH ×2 (08:30→20:03)
[2020-08-24] MEDS: Pantoprazole 40 MG VIAL IVP SCH ×2 (09:47→23:41)
[2020-08-24] MEDS: Polyethylene Glycol 3350 17 GM Packet PER TUBE SCH (09:48)
[2020-08-24] MEDS: Potassium Chloride 20 MEQ TAB PER TUBE SCH (09:59)
[2020-08-24] MEDS: guaiFENesin ER 600 MG TAB PO SCH (09:59)
[2020-08-24] MEDS: Zinc Gluconate 50 MG TAB PO SCH (09:59)
[2020-08-24] MEDS: Ascorbic Acid 500 mg Chewable Tablet PO SCH (09:59)
[2020-08-24] MEDS: Magnesium Oxide 400 MG TAB PO SCH (10:00)
[2020-08-24] MEDS: Metoprolol Tartrate 25 MG TAB PO SCH ×2 (10:00→23:41)
[2020-08-24] MEDS: Cholecalciferol (Vitamin D3) 400 UNITS TAB PO SCH (10:00)
[2020-08-24] MEDS: Furosemide 40 MG/4 ML VIAL SLOW IVP SCH ×2 (14:20→20:01)
[2020-08-24] MEDS: Sodium Chloride 3% (15 ML) NEB NEB SCH ×5 (15:38→22:36)
[2020-08-24] MEDS: Docusate Sodium 100 MG/10 ML UDCUP PO SCH ×2 (15:56→20:01)
[2020-08-24] MEDS: Ivabradine 5 MG TAB PO SCH ×2 (16:45→20:01)
[2020-08-24 16:51] LABS: #Eosinphils 0.1 10x3/uL (0.0-0.5); #Monocytes 0.6 10x3/uL (0.0-1.1); #Neutrophils 5.3 10x3/uL (1.5-8.4); %Basophils 0.4 % (0.0-2.0); %Eosinophils 1.2 % (0.0-6.0); %Lymphocytes 10.9 % (18.0-47.0); %Monocytes 8.4 % (0.0-10.0); %Neutrophils 77.9 % (40.0-75.0); Hemoglobin 9.4 g/dL (13.5-17.5); Mean Corpuscular HGB CONC 31.2 g/dL (32.0-36.0); Mean Corpuscular Hemoglobin 29.3 pg (27.0-33.0); Mean Corpuscular Volume 93.8 fl (81.2-95.1); Mean Platelet Volume 10.1 fl (7.4-10.4); Platelet Count 235 10x3/uL (150-450); RBC Distribution Width 18.1 % (11.5-14.5); Red Blood Cell (RBC) Count 3.21 10x6/uL (4.32-5.72); White Blood Cell (WBC) Count 6.8 10x3/uL (3.5-10.5)
[2020-08-24 17:17] LABS: Platelet Count 281 10x3/uL (150-450)
[2020-08-24 21:29] LABS: BUN (Urea Nitrogen) 14 mg/dL (8.9-20.6); Calc. Creatinine Clearance 111 mL/min (70-130); Calcium 8.5 mg/dL (7.8-10.44); Carbon Dioxide 34 mmol/L (22-29); Glucose 85 mg/dL (70-105)
[2020-08-24 21:34] LABS: Chloride 95 mmol/L (98-107); Potassium 3.8 mmol/L (3.5-5.1); Sodium 141 mmol/L (136-145)
[2020-08-24] MEDS: Benzonatate 100 MG CAP PO PRN (23:41)
[2020-08-24] MEDS: oxyCODONE 5 MG TAB PO PRN (23:42)
[2020-08-24] MEDS: Ondansetron ODT 4 MG TAB PO PRN (23:42)
[2020-08-25] MEDS: guaiFENesin 100 MG/5 ML UDCUP PO SCH ×4 (00:22→18:10)
[2020-08-25] MEDS: Sodium Chloride 3% (15 ML) NEB NEB SCH ×6 (03:04→23:12)
[2020-08-25 04:15] LABS: BUN (Urea Nitrogen) 21 mg/dL (8.9-20.6); Calc. Creatinine Clearance 103 mL/min (70-130); Calcium 8.6 mg/dL (7.8-10.44); Glucose 108 mg/dL (70-105)
[2020-08-25 04:21] LABS: #Eosinphils 0.1 10x3/uL (0.0-0.5); #Monocytes 0.6 10x3/uL (0.0-1.1); #Neutrophils 4.9 10x3/uL (1.5-8.4); %Basophils 0.2 % (0.0-2.0); %Eosinophils 1.4 % (0.0-6.0); %Lymphocytes 15.8 % (18.0-47.0); %Monocytes 8.7 % (0.0-10.0); %Neutrophils 73.1 % (40.0-75.0); Hemoglobin 9.3 g/dL (13.5-17.5); Mean Corpuscular HGB CONC 30.4 g/dL (32.0-36.0); Mean Corpuscular Hemoglobin 29.3 pg (27.0-33.0); Mean Corpuscular Volume 96.5 fl (81.2-95.1); Mean Platelet Volume 9.6 fl (7.4-10.4); Platelet Count 267 10x3/uL (150-450); RBC Distribution Width 17.5 % (11.5-14.5); Red Blood Cell (RBC) Count 3.17 10x6/uL (4.32-5.72); White Blood Cell (WBC) Count 6.6 10x3/uL (3.5-10.5)
[2020-08-25 04:23] LABS: Anion Gap 15 mmol/L (10-20); Carbon Dioxide 36 mmol/L (22-29); Chloride 95 mmol/L (98-107); Potassium 4.1 mmol/L (3.5-5.1); Sodium 142 mmol/L (136-145)
[2020-08-25] MEDS: Furosemide 40 MG/4 ML VIAL SLOW IVP SCH ×2 (05:22→16:24)
[2020-08-25] MEDS: Docusate Sodium 100 MG/10 ML UDCUP PO SCH ×3 (05:22→21:04)
[2020-08-25] MEDS: Ivabradine 5 MG TAB PO SCH ×2 (05:22→16:24)
[2020-08-25] MEDS: Pantoprazole 40 MG VIAL IVP SCH ×2 (08:44→20:30)
[2020-08-25] MEDS: Zinc Gluconate 50 MG TAB PO SCH (08:44)
[2020-08-25] MEDS: Lantus 1000 UNITS/10 ML VIAL SC SCH ×2 (08:44→20:29)
[2020-08-25] MEDS: Potassium Chloride 20 MEQ TAB PER TUBE SCH (08:44)
[2020-08-25] MEDS: Ascorbic Acid 500 mg Chewable Tablet PO SCH (08:45)
[2020-08-25] MEDS: Polyethylene Glycol 3350 17 GM Packet PER TUBE SCH (08:45)
[2020-08-25] MEDS: Metoprolol Tartrate 25 MG TAB PO SCH ×2 (08:45→20:30)
[2020-08-25] MEDS: Cholecalciferol (Vitamin D3) 400 UNITS TAB PO SCH (08:45)
[2020-08-25] MEDS: Magnesium Oxide 400 MG TAB PO SCH (08:45)
[2020-08-25] MEDS: Budesonide 0.5 MG/2 ML NEB NEB SCH ×2 (09:06→18:42)
[2020-08-25] MEDS: Morphine 2 MG/ML VIAL SLOW IVP PRN ×2 (11:28→21:16)
[2020-08-25] MEDS: Insulin Regular 300 UNITS/3 ML VIAL SC PRN ×2 (18:10→21:17)
[2020-08-26] MEDS: guaiFENesin 100 MG/5 ML UDCUP PO SCH ×3 (01:03→14:21)
[2020-08-26] MEDS: Morphine 2 MG/ML VIAL SLOW IVP PRN ×4 (02:02→20:32)
[2020-08-26] MEDS: Ondansetron PF 4 MG/2 ML Vial IVP PRN ×4 (02:03→20:32)
[2020-08-26] MEDS: Sodium Chloride 3% (15 ML) NEB NEB SCH ×6 (03:00→23:40)
[2020-08-26] MEDS: Ivabradine 5 MG TAB PO SCH ×2 (04:47→17:04)
[2020-08-26] MEDS: Insulin Regular 300 UNITS/3 ML VIAL SC PRN ×3 (04:48→20:32)
[2020-08-26 05:03] LABS: Anion Gap 16 mmol/L (10-20); BUN (Urea Nitrogen) 19 mg/dL (8.9-20.6); Calc. Creatinine Clearance 200 mL/min (70-130); Calcium 8.9 mg/dL (7.8-10.44); Carbon Dioxide 33 mmol/L (22-29); Chloride 96 mmol/L (98-107); Glucose 186 mg/dL (70-105); Potassium 4.6 mmol/L (3.5-5.1); Sodium 140 mmol/L (136-145)
[2020-08-26 05:10] LABS: #Eosinphils 0.1 10x3/uL (0.0-0.5); #Monocytes 0.8 10x3/uL (0.0-1.1); #Neutrophils 6.9 10x3/uL (1.5-8.4); %Basophils 0.2 % (0.0-2.0); %Eosinophils 1.6 % (0.0-6.0); %Lymphocytes 9.4 % (18.0-47.0); %Monocytes 8.9 % (0.0-10.0); %Neutrophils 79.2 % (40.0-75.0); Hemoglobin 11.1 g/dL (13.5-17.5); Mean Corpuscular Hemoglobin 29.4 pg (27.0-33.0); Mean Platelet Volume 10.5 fl (7.4-10.4); Platelet Count 305 10x3/uL (150-450); RBC Distribution Width 17.7 % (11.5-14.5); Red Blood Cell (RBC) Count 3.77 10x6/uL (4.32-5.72); White Blood Cell (WBC) Count 8.7 10x3/uL (3.5-10.5)
[2020-08-26] MEDS: Furosemide 40 MG/4 ML VIAL SLOW IVP SCH ×2 (05:13→12:51)
[2020-08-26] MEDS: Budesonide 0.5 MG/2 ML NEB NEB SCH ×2 (07:24→19:00)
[2020-08-26] MEDS: Metoprolol Tartrate 25 MG TAB PO SCH ×2 (08:48→20:34)
[2020-08-26] MEDS: Potassium Chloride 20 MEQ TAB PER TUBE SCH (08:48)
[2020-08-26] MEDS: Zinc Gluconate 50 MG TAB PO SCH (08:48)
[2020-08-26] MEDS: Ascorbic Acid 500 mg Chewable Tablet PO SCH (08:48)
[2020-08-26] MEDS: Magnesium Oxide 400 MG TAB PO SCH (08:48)
[2020-08-26] MEDS: Cholecalciferol (Vitamin D3) 400 UNITS TAB PO SCH (08:48)
[2020-08-26] MEDS: Pantoprazole 40 MG VIAL IVP SCH ×2 (08:48→20:34)
[2020-08-26] MEDS: Polyethylene Glycol 3350 17 GM Packet PER TUBE SCH (08:56)
[2020-08-26] MEDS: Lantus 1000 UNITS/10 ML VIAL SC SCH ×2 (09:52→20:34)
[2020-08-26] MEDS: Docusate Sodium 100 MG/10 ML UDCUP PO SCH ×2 (12:43→20:35)
[2020-08-26] MEDS: GUAIFENESIN SF SOLN 200 MG/10 ML UDCUP PO SCH (20:33)
[2020-08-26] MEDS ORDERED: Lorazepam 2 MG/ML VIAL ONE (21:22)
[2020-08-26] MEDS ORDERED: Nitroglycerin 2% Ointment 1 INCH/1 GM Packet TOP SCH (22:30)
[2020-08-27] MEDS: GUAIFENESIN SF SOLN 200 MG/10 ML UDCUP PO SCH ×4 (01:24→20:47)
[2020-08-27] MEDS: oxyCODONE 5 MG TAB PO PRN (01:24)
[2020-08-27] MEDS: Sodium Chloride 3% (15 ML) NEB NEB SCH ×6 (02:36→23:02)
[2020-08-27] MEDS: Furosemide 40 MG/4 ML VIAL SLOW IVP SCH ×2 (05:06→13:50)
[2020-08-27] MEDS: Insulin Regular 300 UNITS/3 ML VIAL SC PRN ×3 (05:06→20:49)
[2020-08-27] MEDS: Ivabradine 5 MG TAB PO SCH ×2 (05:06→15:36)
[2020-08-27 06:45] LABS: #Basophils 0.1 10x3/uL (0.0-0.2); #Eosinphils 0.2 10x3/uL (0.0-0.5); #Monocytes 0.8 10x3/uL (0.0-1.1); #Neutrophils 7.3 10x3/uL (1.5-8.4); %Basophils 0.5 % (0.0-2.0); %Eosinophils 2.5 % (0.0-6.0); %Lymphocytes 12.2 % (18.0-47.0); %Monocytes 7.9 % (0.0-10.0); %Neutrophils 74.2 % (40.0-75.0); Hemoglobin 11.2 g/dL (13.5-17.5); Mean Corpuscular HGB CONC 31.5 g/dL (32.0-36.0); Mean Corpuscular Hemoglobin 29.6 pg (27.0-33.0); Mean Corpuscular Volume 94.2 fl (81.2-95.1); Mean Platelet Volume 10.5 fl (7.4-10.4); Platelet Count 332 10x3/uL (150-450); RBC Distribution Width 17.3 % (11.5-14.5); Red Blood Cell (RBC) Count 3.78 10x6/uL (4.32-5.72); White Blood Cell (WBC) Count 9.8 10x3/uL (3.5-10.5)
[2020-08-27 07:01] LABS: Anion Gap 16 mmol/L (10-20); BUN (Urea Nitrogen) 19 mg/dL (8.9-20.6); Calc. Creatinine Clearance 177 mL/min (70-130); Calcium 9.1 mg/dL (7.8-10.44); Carbon Dioxide 37 mmol/L (22-29); Chloride 92 mmol/L (98-107); Glucose 171 mg/dL (70-105); Potassium 4.5 mmol/L (3.5-5.1); Sodium 140 mmol/L (136-145)
[2020-08-27] MEDS: Budesonide 0.5 MG/2 ML NEB NEB SCH ×2 (07:40→19:27)
[2020-08-27] MEDS: Ascorbic Acid 500 mg Chewable Tablet PO SCH (08:43)
[2020-08-27] MEDS: Cholecalciferol (Vitamin D3) 400 UNITS TAB PO SCH (08:43)
[2020-08-27] MEDS: Potassium Chloride 20 MEQ TAB PER TUBE SCH (08:43)
[2020-08-27] MEDS: Zinc Gluconate 50 MG TAB PO SCH (08:43)
[2020-08-27] MEDS: Magnesium Oxide 400 MG TAB PO SCH (08:43)
[2020-08-27] MEDS: Metoprolol Tartrate 25 MG TAB PO SCH ×2 (08:44→20:48)
[2020-08-27] MEDS: Polyethylene Glycol 3350 17 GM Packet PER TUBE SCH (08:45)
[2020-08-27] MEDS: Lantus 1000 UNITS/10 ML VIAL SC SCH ×2 (08:46→20:48)
[2020-08-27] MEDS: Pantoprazole 40 MG VIAL IVP SCH ×2 (08:55→20:49)
[2020-08-27] MEDS: Ondansetron PF 4 MG/2 ML Vial IVP PRN (11:58)
[2020-08-27] MEDS ORDERED: Furosemide 20 MG/2 ML VIAL ONE (13:43)
[2020-08-27] MEDS: Docusate Sodium 100 MG/10 ML UDCUP PO SCH ×2 (13:53→20:50)
[2020-08-27] MEDS: Calcium Carbonate 500 MG ChewTAB PO PRN (15:43)
[2020-08-27] MEDS: Mag-Al Plus 1200 MG/1200 MG/120 MG/30 ML UDCUP PO PRN (15:44)
[2020-08-27] MEDS: Enoxaparin Sodium 40 MG/0.4 ML SYRINGE SC SCH (20:47)
[2020-08-27] MEDS: Temazepam 15 MG CAP PO SCH (20:49)
[2020-08-28] MEDS: oxyCODONE 5 MG TAB PO PRN (00:36)
[2020-08-28] MEDS: Sodium Chloride 3% (15 ML) NEB NEB SCH ×4 (01:32→15:58)
[2020-08-28] MEDS: GUAIFENESIN SF SOLN 200 MG/10 ML UDCUP PO SCH ×4 (02:26→22:46)
[2020-08-28] MEDS ORDERED: Furosemide 20 MG/2 ML VIAL ONE ×2 (04:35→14:09)
[2020-08-28] MEDS: Insulin Regular 300 UNITS/3 ML VIAL SC PRN ×3 (04:44→16:45)
[2020-08-28] MEDS: Ivabradine 5 MG TAB PO SCH ×2 (04:44→16:46)
[2020-08-28] MEDS: Furosemide 40 MG/4 ML VIAL SLOW IVP SCH ×2 (05:05→14:14)
[2020-08-28 06:05] LABS: #Eosinphils 0.3 10x3/uL (0.0-0.5); #Monocytes 0.7 10x3/uL (0.0-1.1); #Neutrophils 6.7 10x3/uL (1.5-8.4); %Basophils 0.5 % (0.0-2.0); %Eosinophils 2.8 % (0.0-6.0); %Lymphocytes 11.8 % (18.0-47.0); %Monocytes 8.2 % (0.0-10.0); Hemoglobin 11.1 g/dL (13.5-17.5); Mean Corpuscular HGB CONC 30.7 g/dL (32.0-36.0); Mean Corpuscular Hemoglobin 29.2 pg (27.0-33.0); Mean Corpuscular Volume 95.3 fl (81.2-95.1); Mean Platelet Volume 10.2 fl (7.4-10.4); Platelet Count 340 10x3/uL (150-450); White Blood Cell (WBC) Count 8.9 10x3/uL (3.5-10.5)
[2020-08-28 06:25] LABS: BUN (Urea Nitrogen) 25 mg/dL (8.9-20.6); Calc. Creatinine Clearance 156 mL/min (70-130); Calcium 9.2 mg/dL (7.8-10.44); Glucose 241 mg/dL (70-105)
[2020-08-28 06:33] LABS: Anion Gap 17 mmol/L (10-20); Carbon Dioxide 37 mmol/L (22-29); Chloride 90 mmol/L (98-107); Potassium 3.9 mmol/L (3.5-5.1); Sodium 140 mmol/L (136-145)
[2020-08-28] MEDS: Budesonide 0.5 MG/2 ML NEB NEB SCH (07:59)
[2020-08-28] MEDS: Cholecalciferol (Vitamin D3) 400 UNITS TAB PO SCH (09:15)
[2020-08-28] MEDS: Metoprolol Tartrate 25 MG TAB PO SCH ×2 (09:15→22:47)
[2020-08-28] MEDS: Ascorbic Acid 500 mg Chewable Tablet PO SCH (09:15)
[2020-08-28] MEDS: Pantoprazole 40 MG VIAL IVP SCH ×2 (09:15→22:47)
[2020-08-28] MEDS: Potassium Chloride 20 MEQ TAB PER TUBE SCH (09:15)
[2020-08-28] MEDS: Polyethylene Glycol 3350 17 GM Packet PER TUBE SCH (09:16)
[2020-08-28] MEDS: Magnesium Oxide 400 MG TAB PO SCH (09:16)
[2020-08-28] MEDS: Zinc Gluconate 50 MG TAB PO SCH (09:16)
[2020-08-28] MEDS: Lantus 1000 UNITS/10 ML VIAL SC SCH ×2 (09:45→22:48)
[2020-08-28] MEDS: Docusate Sodium 100 MG/10 ML UDCUP PO SCH (14:15)
[2020-08-28] MEDS: Mag-Al Plus 1200 MG/1200 MG/120 MG/30 ML UDCUP PO PRN ×2 (14:37→20:12)
[2020-08-28] MEDS: Calcium Carbonate 500 MG ChewTAB PO PRN ×2 (14:37→20:12)
[2020-08-28] MEDS: Enoxaparin Sodium 40 MG/0.4 ML SYRINGE SC SCH (22:47)
[2020-08-28] MEDS: Temazepam 15 MG CAP PO SCH (22:48)
[2020-08-29] MEDS: Budesonide 0.5 MG/2 ML NEB NEB SCH ×3 (01:18→18:36)
[2020-08-29] MEDS: Sodium Chloride 3% (15 ML) NEB NEB SCH ×6 (01:18→15:04)
[2020-08-29] MEDS: Docusate Sodium 100 MG/10 ML UDCUP PO SCH ×2 (02:24→13:41)
[2020-08-29] MEDS: GUAIFENESIN SF SOLN 200 MG/10 ML UDCUP PO SCH ×5 (02:24→21:00)
[2020-08-29] MEDS: Insulin Regular 300 UNITS/3 ML VIAL SC PRN ×4 (03:48→21:45)
[2020-08-29 04:55] LABS: #Eosinphils 0.2 10x3/uL (0.0-0.5); #Monocytes 0.7 10x3/uL (0.0-1.1); #Neutrophils 5.8 10x3/uL (1.5-8.4); %Basophils 0.4 % (0.0-2.0); %Eosinophils 2.9 % (0.0-6.0); %Lymphocytes 13.8 % (18.0-47.0); %Monocytes 8.8 % (0.0-10.0); %Neutrophils 73.7 % (40.0-75.0); Hemoglobin 10.7 g/dL (13.5-17.5); Mean Corpuscular HGB CONC 30.5 g/dL (32.0-36.0); Mean Corpuscular Hemoglobin 28.5 pg (27.0-33.0); Mean Corpuscular Volume 93.6 fl (81.2-95.1); Mean Platelet Volume 10.2 fl (7.4-10.4); Platelet Count 334 10x3/uL (150-450); RBC Distribution Width 16.9 % (11.5-14.5); Red Blood Cell (RBC) Count 3.75 10x6/uL (4.32-5.72); White Blood Cell (WBC) Count 7.8 10x3/uL (3.5-10.5)
[2020-08-29 05:00] LABS: BUN (Urea Nitrogen) 26 mg/dL (8.9-20.6); Calc. Creatinine Clearance 172 mL/min (70-130); Calcium 9.2 mg/dL (7.8-10.44); Glucose 178 mg/dL (70-105)
[2020-08-29 05:08] LABS: Anion Gap 16 mmol/L (10-20); Carbon Dioxide 36 mmol/L (22-29); Chloride 91 mmol/L (98-107); Potassium 3.8 mmol/L (3.5-5.1); Sodium 139 mmol/L (136-145)
[2020-08-29] MEDS: Ivabradine 5 MG TAB PO SCH ×2 (05:25→16:07)
[2020-08-29] MEDS: Furosemide 40 MG/4 ML VIAL SLOW IVP SCH ×2 (05:26→13:40)
[2020-08-29] MEDS: Lantus 1000 UNITS/10 ML VIAL SC SCH ×2 (08:17→21:45)
[2020-08-29] MEDS: Pantoprazole 40 MG VIAL IVP SCH ×2 (08:18→21:01)
[2020-08-29] MEDS: Metoprolol Tartrate 25 MG TAB PO SCH ×2 (08:18→21:01)
[2020-08-29] MEDS: Ascorbic Acid 500 mg Chewable Tablet PO SCH (08:18)
[2020-08-29] MEDS: Potassium Chloride 20 MEQ TAB PER TUBE SCH (08:19)
[2020-08-29] MEDS: Zinc Gluconate 50 MG TAB PO SCH (08:19)
[2020-08-29] MEDS: Magnesium Oxide 400 MG TAB PO SCH (08:19)
[2020-08-29] MEDS: Cholecalciferol (Vitamin D3) 400 UNITS TAB PO SCH (08:19)
[2020-08-29] MEDS: Polyethylene Glycol 3350 17 GM Packet PER TUBE SCH (08:19)
[2020-08-29] MEDS: oxyCODONE 5 MG TAB PO PRN ×2 (08:27→16:24)
[2020-08-29] MEDS ORDERED: Loperamide HCl 2 MG CAP PO PRN (13:35)
[2020-08-29] MEDS ORDERED: Sodium Chloride 3% (15 ML) NEB NEB PRN (16:23)
[2020-08-29] MEDS: Enoxaparin Sodium 40 MG/0.4 ML SYRINGE SC SCH (21:01)
[2020-08-29] MEDS: Temazepam 15 MG CAP PO SCH (21:03)
[2020-08-29] MEDS: Cholestyramine/Aspartame 4 gm Packet PO SCH (22:30)
[2020-08-30] MEDS: GUAIFENESIN SF SOLN 200 MG/10 ML UDCUP PO SCH ×4 (02:35→20:23)
[2020-08-30] MEDS: Docusate Sodium 100 MG/10 ML UDCUP PO SCH ×2 (02:35→10:00)
[2020-08-30] MEDS: oxyCODONE 5 MG TAB PO PRN (02:36)
[2020-08-30 05:40] LABS: Hemoglobin 10.9 g/dL (13.5-17.5); Mean Corpuscular HGB CONC 31.4 g/dL (32.0-36.0); Mean Corpuscular Hemoglobin 29.5 pg (27.0-33.0); Mean Corpuscular Volume 93.8 fl (81.2-95.1); Mean Platelet Volume 9.8 fl (7.4-10.4); Platelet Count 292 10x3/uL (150-450); RBC Distribution Width 16.5 % (11.5-14.5); White Blood Cell (WBC) Count 7.6 10x3/uL (3.5-10.5)
[2020-08-30] MEDS: Furosemide 40 MG/4 ML VIAL SLOW IVP SCH ×2 (05:42→15:23)
[2020-08-30] MEDS: Ivabradine 5 MG TAB PO SCH ×2 (05:42→17:32)
[2020-08-30 06:05] LABS: BUN (Urea Nitrogen) 27 mg/dL (8.9-20.6); Calc. Creatinine Clearance 167 mL/min (70-130); Calcium 8.9 mg/dL (7.8-10.44); Glucose 232 mg/dL (70-105)
[2020-08-30] MEDS: Insulin Regular 300 UNITS/3 ML VIAL SC PRN ×3 (06:06→22:28)
[2020-08-30 06:12] LABS: Anion Gap 15 mmol/L (10-20); Carbon Dioxide 37 mmol/L (22-29); Chloride 89 mmol/L (98-107); Potassium 4.4 mmol/L (3.5-5.1); Sodium 137 mmol/L (136-145)
[2020-08-30 06:33] LABS: MDiff Complete? YES
[2020-08-30 06:36] LABS: Band 10 % (5-11); Eosinophils 6 % (0-10); Lymphocytes 17 % (21-51); Monocytes 9 % (0-10); Neutrophil 58 % (42-75)
[2020-08-30 06:37] LABS: Anisocytosis MODERATE=16-30 cells (100X) (0-5/hpf); Hypochromia MODERATE=16-30 cells (100X) (0-5/hpf); Poikilocytosis MODERATE=16-30 cells (100X) (0-5/hpf); Stomatocytes SLIGHT = 2-5 cells (100X) (0-1/hpf)
[2020-08-30 06:38] LABS: Platelet Morphology Comment Appears Adequate
[2020-08-30] MEDS: Budesonide 0.5 MG/2 ML NEB NEB SCH ×2 (07:47→19:06)
[2020-08-30] MEDS: Potassium Chloride 20 MEQ TAB PER TUBE SCH (08:59)
[2020-08-30] MEDS: Cholecalciferol (Vitamin D3) 400 UNITS TAB PO SCH (09:50)
[2020-08-30] MEDS: Ascorbic Acid 500 mg Chewable Tablet PO SCH (09:57)
[2020-08-30] MEDS: Magnesium Oxide 400 MG TAB PO SCH (09:58)
[2020-08-30] MEDS: Lantus 1000 UNITS/10 ML VIAL SC SCH ×2 (09:58→22:27)
[2020-08-30] MEDS: Zinc Gluconate 50 MG TAB PO SCH (09:58)
[2020-08-30] MEDS: Metoprolol Tartrate 25 MG TAB PO SCH ×2 (09:58→20:25)
[2020-08-30] MEDS: Cholestyramine/Aspartame 4 gm Packet PO SCH ×2 (10:00→22:28)
[2020-08-30] MEDS: Polyethylene Glycol 3350 17 GM Packet PER TUBE SCH (10:00)
[2020-08-30] MEDS: Pantoprazole 40 MG VIAL IVP SCH ×2 (10:02→20:25)
[2020-08-30] MEDS: Benzonatate 100 MG CAP PO PRN (20:24)
[2020-08-30] MEDS: Enoxaparin Sodium 40 MG/0.4 ML SYRINGE SC SCH (20:24)
[2020-08-30] MEDS: Temazepam 15 MG CAP PO SCH (20:27)
[2020-08-31] MEDS: GUAIFENESIN SF SOLN 200 MG/10 ML UDCUP PO SCH ×4 (02:27→19:56)
[2020-08-31] MEDS: Docusate Sodium 100 MG/10 ML UDCUP PO SCH ×2 (02:27→14:47)
[2020-08-31 05:37] LABS: BUN (Urea Nitrogen) 16 mg/dL (8.9-20.6); Calc. Creatinine Clearance 183 mL/min (70-130); Glucose 204 mg/dL (70-105)
[2020-08-31 05:45] LABS: Anion Gap 14 mmol/L (10-20); Carbon Dioxide 37 mmol/L (22-29); Chloride 90 mmol/L (98-107); Potassium 4.3 mmol/L (3.5-5.1); Sodium 137 mmol/L (136-145)
[2020-08-31] MEDS: Furosemide 40 MG/4 ML VIAL SLOW IVP SCH ×2 (05:49→14:47)
[2020-08-31] MEDS: Ivabradine 5 MG TAB PO SCH ×2 (05:49→18:47)
[2020-08-31] MEDS: Insulin Regular 300 UNITS/3 ML VIAL SC PRN ×2 (05:49→13:40)
[2020-08-31 06:02] LABS: Hemoglobin 10.9 g/dL (13.5-17.5); Mean Corpuscular HGB CONC 31.1 g/dL (32.0-36.0); Mean Corpuscular Hemoglobin 28.7 pg (27.0-33.0); Mean Corpuscular Volume 92.1 fl (81.2-95.1); Mean Platelet Volume 10.1 fl (7.4-10.4); Platelet Count 304 10x3/uL (150-450)
[2020-08-31 06:12] LABS: MDiff Complete? YES
[2020-08-31 06:48] LABS: Band 10 % (5-11); Eosinophils 4 % (0-10); Lymphocytes 9 % (21-51); Monocytes 10 % (0-10); Neutrophil 67 % (42-75)
[2020-08-31 06:49] LABS: Anisocytosis MODERATE=16-30 cells (100X) (0-5/hpf); Poikilocytosis MODERATE=16-30 cells (100X) (0-5/hpf); Stomatocytes SLIGHT = 2-5 cells (100X) (0-1/hpf)
[2020-08-31 06:50] LABS: Platelet Morphology Comment Appears Adequate
[2020-08-31] MEDS: Budesonide 0.5 MG/2 ML NEB NEB SCH ×2 (07:29→18:42)
[2020-08-31] MEDS: Lantus 1000 UNITS/10 ML VIAL SC SCH ×2 (09:00→19:57)
[2020-08-31] MEDS: Potassium Chloride 20 MEQ TAB PER TUBE SCH (09:35)
[2020-08-31] MEDS: Zinc Gluconate 50 MG TAB PO SCH (09:36)
[2020-08-31] MEDS: Magnesium Oxide 400 MG TAB PO SCH (09:36)
[2020-08-31] MEDS: Metoprolol Tartrate 25 MG TAB PO SCH ×2 (09:36→19:59)
[2020-08-31] MEDS: Cholecalciferol (Vitamin D3) 400 UNITS TAB PO SCH (09:36)
[2020-08-31] MEDS: Ascorbic Acid 500 mg Chewable Tablet PO SCH (09:36)
[2020-08-31] MEDS: Pantoprazole 40 MG VIAL IVP SCH ×2 (09:37→19:59)
[2020-08-31] MEDS: Polyethylene Glycol 3350 17 GM Packet PER TUBE SCH (09:37)
[2020-08-31] MEDS: oxyCODONE 5 MG TAB PO PRN ×2 (10:18→20:48)
[2020-08-31] MEDS: Cholestyramine/Aspartame 4 gm Packet PO SCH ×2 (14:47→22:41)
[2020-08-31] MEDS: Enoxaparin Sodium 40 MG/0.4 ML SYRINGE SC SCH (19:56)
[2020-08-31] MEDS: Temazepam 15 MG CAP PO SCH (20:01)
[2020-09-01] MEDS: Docusate Sodium 100 MG/10 ML UDCUP PO SCH ×2 (02:44→14:20)
[2020-09-01] MEDS: GUAIFENESIN SF SOLN 200 MG/10 ML UDCUP PO SCH ×4 (02:44→20:43)
[2020-09-01] MEDS: Furosemide 40 MG/4 ML VIAL SLOW IVP SCH ×2 (05:01→13:50)
[2020-09-01] MEDS: Ivabradine 5 MG TAB PO SCH ×2 (05:01→17:06)
[2020-09-01] MEDS: Budesonide 0.5 MG/2 ML NEB NEB SCH ×2 (07:25→19:34)
[2020-09-01] MEDS: Ascorbic Acid 500 mg Chewable Tablet PO SCH (07:27)
[2020-09-01] MEDS: Metoprolol Tartrate 25 MG TAB PO SCH ×2 (07:27→20:31)
[2020-09-01] MEDS: Potassium Chloride 20 MEQ TAB PER TUBE SCH (07:27)
[2020-09-01] MEDS: Magnesium Oxide 400 MG TAB PO SCH (07:27)
[2020-09-01] MEDS: Cholecalciferol (Vitamin D3) 400 UNITS TAB PO SCH (07:27)
[2020-09-01] MEDS: Zinc Gluconate 50 MG TAB PO SCH (07:28)
[2020-09-01] MEDS: Pantoprazole 40 MG VIAL IVP SCH ×2 (07:28→20:31)
[2020-09-01] MEDS: Polyethylene Glycol 3350 17 GM Packet PER TUBE SCH (07:35)
[2020-09-01] MEDS: Lantus 1000 UNITS/10 ML VIAL SC SCH ×2 (07:36→20:30)
[2020-09-01] MEDS: oxyCODONE 5 MG TAB PO PRN ×2 (08:36→15:53)
[2020-09-01] MEDS: Insulin Regular 300 UNITS/3 ML VIAL SC PRN ×2 (11:27→17:05)
[2020-09-01] MEDS: Cholestyramine/Aspartame 4 gm Packet PO SCH ×2 (11:27→22:56)
[2020-09-01] MEDS ORDERED: Tamsulosin HCl 0.4 MG CAP PO SCH (16:15)
[2020-09-01] MEDS: Enoxaparin Sodium 40 MG/0.4 ML SYRINGE SC SCH (20:28)
[2020-09-01] MEDS: Tamsulosin HCl 0.4 MG CAP PO SCH (20:31)
[2020-09-01] MEDS: Temazepam 15 MG CAP PO SCH (20:31)
[2020-09-02] MEDS: Docusate Sodium 100 MG/10 ML UDCUP PO SCH ×3 (03:00→13:41)
[2020-09-02] MEDS: GUAIFENESIN SF SOLN 200 MG/10 ML UDCUP PO SCH ×5 (03:00→21:34)
[2020-09-02] MEDS: Ivabradine 5 MG TAB PO SCH ×2 (04:26→16:43)
[2020-09-02] MEDS: Furosemide 40 MG/4 ML VIAL SLOW IVP SCH ×2 (05:43→14:09)
[2020-09-02] MEDS: Budesonide 0.5 MG/2 ML NEB NEB SCH ×2 (07:21→19:33)
[2020-09-02] MEDS: Pantoprazole 40 MG VIAL IVP SCH ×2 (08:41→21:45)
[2020-09-02] MEDS: Polyethylene Glycol 3350 17 GM Packet PER TUBE SCH (08:44)
[2020-09-02] MEDS: Mag-Al Plus 1200 MG/1200 MG/120 MG/30 ML UDCUP PO PRN ×3 (08:44→21:44)
[2020-09-02] MEDS: Calcium Carbonate 500 MG ChewTAB PO PRN ×3 (08:44→21:44)
[2020-09-02] MEDS: Magnesium Oxide 400 MG TAB PO SCH (08:45)
[2020-09-02] MEDS: Zinc Gluconate 50 MG TAB PO SCH (08:45)
[2020-09-02] MEDS: Cholecalciferol (Vitamin D3) 400 UNITS TAB PO SCH (08:45)
[2020-09-02] MEDS: Ascorbic Acid 500 mg Chewable Tablet PO SCH (08:45)
[2020-09-02] MEDS: Metoprolol Tartrate 25 MG TAB PO SCH ×2 (08:45→21:45)
[2020-09-02] MEDS: Lantus 1000 UNITS/10 ML VIAL SC SCH ×2 (08:49→21:34)
[2020-09-02] MEDS: Potassium Chloride 20 MEQ TAB PER TUBE SCH (13:41)
[2020-09-02] MEDS: Cholestyramine/Aspartame 4 gm Packet PO SCH ×2 (14:09→21:34)
[2020-09-02] MEDS: Ondansetron PF 4 MG/2 ML Vial IVP PRN (14:37)
[2020-09-02] MEDS: Insulin Regular 300 UNITS/3 ML VIAL SC PRN ×2 (16:46→22:12)
[2020-09-02] MEDS: Enoxaparin Sodium 40 MG/0.4 ML SYRINGE SC SCH (21:44)
[2020-09-02] MEDS: Ondansetron ODT 4 MG TAB PO PRN (21:44)
[2020-09-02] MEDS: Temazepam 15 MG CAP PO SCH (21:44)
[2020-09-02] MEDS: Tamsulosin HCl 0.4 MG CAP PO SCH (21:46)
[2020-09-03] MEDS: Calcium Carbonate 500 MG ChewTAB PO PRN ×2 (04:19→21:45)
[2020-09-03] MEDS: Mag-Al Plus 1200 MG/1200 MG/120 MG/30 ML UDCUP PO PRN ×2 (04:19→21:45)
[2020-09-03] MEDS: Insulin Regular 300 UNITS/3 ML VIAL SC PRN ×3 (04:26→21:55)
[2020-09-03] MEDS: Ivabradine 5 MG TAB PO SCH ×2 (06:00→17:34)
[2020-09-03] MEDS: Furosemide 40 MG/4 ML VIAL SLOW IVP SCH ×2 (06:24→14:50)
[2020-09-03] MEDS: Budesonide 0.5 MG/2 ML NEB NEB SCH ×2 (07:06→19:40)
[2020-09-03] MEDS: Ascorbic Acid 500 mg Chewable Tablet PO SCH (08:54)
[2020-09-03] MEDS: Potassium Chloride 20 MEQ TAB PER TUBE SCH (08:54)
[2020-09-03] MEDS: Cholecalciferol (Vitamin D3) 400 UNITS TAB PO SCH (08:55)
[2020-09-03] MEDS: Lantus 1000 UNITS/10 ML VIAL SC SCH ×2 (08:55→21:46)
[2020-09-03] MEDS: Polyethylene Glycol 3350 17 GM Packet PER TUBE SCH (08:57)
[2020-09-03] MEDS: Pantoprazole 40 MG VIAL IVP SCH ×2 (08:57→21:47)
[2020-09-03] MEDS: Zinc Gluconate 50 MG TAB PO SCH (08:57)
[2020-09-03] MEDS: Magnesium Oxide 400 MG TAB PO SCH (08:57)
[2020-09-03] MEDS: Metoprolol Tartrate 25 MG TAB PO SCH ×2 (08:57→21:45)
[2020-09-03] MEDS: GUAIFENESIN SF SOLN 200 MG/10 ML UDCUP PO SCH ×2 (09:00→14:50)
[2020-09-03] MEDS: Cholestyramine/Aspartame 4 gm Packet PO SCH ×2 (10:30→21:48)
[2020-09-03] MEDS: Docusate Sodium 100 MG/10 ML UDCUP PO SCH (14:50)
[2020-09-03] MEDS: guaiFENesin 100 MG/5 ML UDCUP PO SCH (21:00)
[2020-09-03] MEDS: Temazepam 15 MG CAP PO SCH (21:45)
[2020-09-03] MEDS: Tamsulosin HCl 0.4 MG CAP PO SCH (21:45)
[2020-09-03] MEDS: Enoxaparin Sodium 40 MG/0.4 ML SYRINGE SC SCH (21:46)
[2020-09-04] MEDS: Docusate Sodium 100 MG/10 ML UDCUP PO SCH ×2 (02:47→16:46)
[2020-09-04] MEDS: guaiFENesin 100 MG/5 ML UDCUP PO SCH ×4 (03:00→21:09)
[2020-09-04] MEDS: Calcium Carbonate 500 MG ChewTAB PO PRN ×2 (04:37→21:10)
[2020-09-04] MEDS: Mag-Al Plus 1200 MG/1200 MG/120 MG/30 ML UDCUP PO PRN ×2 (04:37→21:09)
[2020-09-04] MEDS: Ivabradine 5 MG TAB PO SCH ×2 (04:38→16:46)
[2020-09-04] MEDS: Insulin Regular 300 UNITS/3 ML VIAL SC PRN ×3 (05:04→21:07)
[2020-09-04] MEDS: Furosemide 40 MG/4 ML VIAL SLOW IVP SCH ×2 (05:04→13:50)
[2020-09-04 05:11] LABS: BUN (Urea Nitrogen) 24 mg/dL (8.4-25.7); Calc. Creatinine Clearance 157 mL/min (70-130); Calcium 8.9 mg/dL (7.8-10.44); Glucose 191 mg/dL (70-105)
[2020-09-04 05:18] LABS: Anion Gap 15 mmol/L (10-20); Carbon Dioxide 36 mmol/L (22-29); Chloride 89 mmol/L (98-107); Potassium 3.6 mmol/L (3.5-5.1); Sodium 136 mmol/L (136-145)
[2020-09-04 05:19] LABS: #Basophils 0.1 10x3/uL (0.0-0.2); #Eosinphils 0.4 10x3/uL (0.0-0.5); #Monocytes 0.6 10x3/uL (0.0-1.1); #Neutrophils 4.1 10x3/uL (1.5-8.4); %Basophils 0.7 % (0.0-2.0); %Eosinophils 6.4 % (0.0-6.0); %Monocytes 8.1 % (0.0-10.0); %Neutrophils 59.6 % (40.0-75.0); Hemoglobin 11.2 g/dL (13.5-17.5); Mean Corpuscular HGB CONC 31.3 g/dL (32.0-36.0); Mean Corpuscular Hemoglobin 28.5 pg (27.0-33.0); Mean Corpuscular Volume 91.1 fl (81.2-95.1); Mean Platelet Volume 10.1 fl (7.4-10.4); Platelet Count 318 10x3/uL (150-450); RBC Distribution Width 15.6 % (11.5-14.5); Red Blood Cell (RBC) Count 3.93 10x6/uL (4.32-5.72); White Blood Cell (WBC) Count 6.8 10x3/uL (3.5-10.5)
[2020-09-04] MEDS: Budesonide 0.5 MG/2 ML NEB NEB SCH ×2 (07:09→18:28)
[2020-09-04] MEDS: Magnesium Oxide 400 MG TAB PO SCH (09:22)
[2020-09-04] MEDS: Ascorbic Acid 500 mg Chewable Tablet PO SCH (09:22)
[2020-09-04] MEDS: Polyethylene Glycol 3350 17 GM Packet PER TUBE SCH (09:23)
[2020-09-04] MEDS: Zinc Gluconate 50 MG TAB PO SCH (09:23)
[2020-09-04] MEDS: Cholecalciferol (Vitamin D3) 400 UNITS TAB PO SCH (09:23)
[2020-09-04] MEDS: Metoprolol Tartrate 25 MG TAB PO SCH ×2 (09:23→21:09)
[2020-09-04] MEDS: Pantoprazole 40 MG VIAL IVP SCH ×2 (09:23→21:09)
[2020-09-04] MEDS: Potassium Chloride 20 MEQ TAB PER TUBE SCH (09:23)
[2020-09-04] MEDS: oxyCODONE 5 MG TAB PO PRN ×2 (10:44→18:33)
[2020-09-04] MEDS: Cholestyramine/Aspartame 4 gm Packet PO SCH ×2 (13:27→21:10)
[2020-09-04] MEDS: Lantus 1000 UNITS/10 ML VIAL SC SCH ×2 (13:27→21:08)
[2020-09-04] MEDS: Acetaminophen 325 MG TAB PO PRN (13:50)
[2020-09-04] MEDS: Temazepam 15 MG CAP PO SCH (21:09)
[2020-09-04] MEDS: Tamsulosin HCl 0.4 MG CAP PO SCH (21:10)
[2020-09-04] MEDS: Enoxaparin Sodium 40 MG/0.4 ML SYRINGE SC SCH (21:10)
[2020-09-05] MEDS: guaiFENesin 100 MG/5 ML UDCUP PO SCH ×4 (02:06→21:24)
[2020-09-05] MEDS: Mag-Al Plus 1200 MG/1200 MG/120 MG/30 ML UDCUP PO PRN ×2 (02:06→21:24)
[2020-09-05] MEDS: Docusate Sodium 100 MG/10 ML UDCUP PO SCH ×2 (02:18→14:45)
[2020-09-05] MEDS: Ivabradine 5 MG TAB PO SCH ×2 (05:06→17:25)
[2020-09-05] MEDS: Insulin Regular 300 UNITS/3 ML VIAL SC PRN ×2 (05:06→21:26)
[2020-09-05] MEDS: Calcium Carbonate 500 MG ChewTAB PO PRN ×2 (05:06→21:25)
[2020-09-05] MEDS: Furosemide 40 MG/4 ML VIAL SLOW IVP SCH ×2 (05:07→14:16)
[2020-09-05] MEDS: Budesonide 0.5 MG/2 ML NEB NEB SCH ×2 (08:00→19:27)
[2020-09-05] MEDS: Polyethylene Glycol 3350 17 GM Packet PER TUBE SCH (08:22)
[2020-09-05] MEDS: Potassium Chloride 20 MEQ TAB PER TUBE SCH (08:23)
[2020-09-05] MEDS: Lantus 1000 UNITS/10 ML VIAL SC SCH ×2 (08:23→21:25)
[2020-09-05] MEDS: Ascorbic Acid 500 mg Chewable Tablet PO SCH (08:23)
[2020-09-05] MEDS: Magnesium Oxide 400 MG TAB PO SCH (08:23)
[2020-09-05] MEDS: Zinc Gluconate 50 MG TAB PO SCH (08:23)
[2020-09-05] MEDS: Cholecalciferol (Vitamin D3) 400 UNITS TAB PO SCH (08:23)
[2020-09-05] MEDS: Metoprolol Tartrate 25 MG TAB PO SCH ×2 (08:23→21:25)
[2020-09-05] MEDS: Pantoprazole 40 MG VIAL IVP SCH ×2 (08:24→21:25)
[2020-09-05] MEDS: oxyCODONE 5 MG TAB PO PRN ×2 (08:55→15:08)
[2020-09-05] MEDS: Cholestyramine/Aspartame 4 gm Packet PO SCH ×2 (10:00→21:25)
[2020-09-05] MEDS: Temazepam 15 MG CAP PO SCH (21:24)
[2020-09-05] MEDS: Enoxaparin Sodium 40 MG/0.4 ML SYRINGE SC SCH (21:25)
[2020-09-05] MEDS: Tamsulosin HCl 0.4 MG CAP PO SCH (21:25)
[2020-09-06] MEDS: guaiFENesin 100 MG/5 ML UDCUP PO SCH ×4 (02:26→20:49)
[2020-09-06] MEDS: Mag-Al Plus 1200 MG/1200 MG/120 MG/30 ML UDCUP PO PRN ×3 (02:26→16:40)
[2020-09-06] MEDS: Ivabradine 5 MG TAB PO SCH ×2 (04:34→16:32)
[2020-09-06] MEDS: Insulin Regular 300 UNITS/3 ML VIAL SC PRN ×4 (04:34→21:20)
[2020-09-06] MEDS: Calcium Carbonate 500 MG ChewTAB PO PRN ×2 (04:34→08:14)
[2020-09-06] MEDS: Docusate Sodium 100 MG/10 ML UDCUP PO SCH ×2 (04:36→12:19)
[2020-09-06] MEDS: Furosemide 40 MG/4 ML VIAL SLOW IVP SCH ×2 (05:13→12:18)
[2020-09-06] MEDS: Budesonide 0.5 MG/2 ML NEB NEB SCH ×2 (07:25→19:27)
[2020-09-06] MEDS: Potassium Chloride 20 MEQ TAB PER TUBE SCH (08:14)
[2020-09-06] MEDS: Pantoprazole 40 MG VIAL IVP SCH ×2 (08:14→20:50)
[2020-09-06] MEDS: Cholecalciferol (Vitamin D3) 400 UNITS TAB PO SCH (08:14)
[2020-09-06] MEDS: Metoprolol Tartrate 25 MG TAB PO SCH ×2 (08:14→20:50)
[2020-09-06] MEDS: Magnesium Oxide 400 MG TAB PO SCH (08:14)
[2020-09-06] MEDS: Ascorbic Acid 500 mg Chewable Tablet PO SCH (08:14)
[2020-09-06] MEDS: Zinc Gluconate 50 MG TAB PO SCH (08:14)
[2020-09-06] MEDS: Polyethylene Glycol 3350 17 GM Packet PER TUBE SCH (09:26)
[2020-09-06] MEDS: Lantus 1000 UNITS/10 ML VIAL SC SCH ×2 (09:30→21:00)
[2020-09-06] MEDS: Cholestyramine/Aspartame 4 gm Packet PO SCH ×2 (11:11→20:52)
[2020-09-06] MEDS: Enoxaparin Sodium 40 MG/0.4 ML SYRINGE SC SCH (20:50)
[2020-09-06] MEDS: Tamsulosin HCl 0.4 MG CAP PO SCH (20:50)
[2020-09-06] MEDS: Temazepam 15 MG CAP PO SCH (20:51)
[2020-09-07] MEDS: guaiFENesin 100 MG/5 ML UDCUP PO SCH ×4 (02:03→21:35)
[2020-09-07] MEDS: Docusate Sodium 100 MG/10 ML UDCUP PO SCH ×2 (03:04→14:01)
[2020-09-07] MEDS: Insulin Regular 300 UNITS/3 ML VIAL SC PRN ×4 (04:45→21:37)
[2020-09-07] MEDS: Furosemide 40 MG/4 ML VIAL SLOW IVP SCH ×2 (05:36→14:00)
[2020-09-07] MEDS: Ivabradine 5 MG TAB PO SCH ×2 (05:36→17:54)
[2020-09-07] MEDS: Budesonide 0.5 MG/2 ML NEB NEB SCH ×2 (06:51→19:55)
[2020-09-07] MEDS: Metoprolol Tartrate 25 MG TAB PO SCH ×2 (09:04→21:36)
[2020-09-07] MEDS: Potassium Chloride 20 MEQ TAB PER TUBE SCH (09:04)
[2020-09-07] MEDS: Cholecalciferol (Vitamin D3) 400 UNITS TAB PO SCH (09:04)
[2020-09-07] MEDS: Ascorbic Acid 500 mg Chewable Tablet PO SCH (09:05)
[2020-09-07] MEDS: Pantoprazole 40 MG VIAL IVP SCH ×2 (09:05→21:36)
[2020-09-07] MEDS: Zinc Gluconate 50 MG TAB PO SCH (09:05)
[2020-09-07] MEDS: Polyethylene Glycol 3350 17 GM Packet PER TUBE SCH (09:05)
[2020-09-07] MEDS: Magnesium Oxide 400 MG TAB PO SCH (09:05)
[2020-09-07] MEDS: Cholestyramine/Aspartame 4 gm Packet PO SCH ×2 (09:06→21:36)
[2020-09-07] MEDS: Lantus 1000 UNITS/10 ML VIAL SC SCH ×2 (09:08→21:35)
[2020-09-07] MEDS: clonazePAM 0.5 MG TAB PO PRN ×2 (13:59→21:37)
[2020-09-07] MEDS ORDERED: clonazePAM 0.5 MG TAB PO SCH (21:00)
[2020-09-07] MEDS: Enoxaparin Sodium 40 MG/0.4 ML SYRINGE SC SCH (21:35)
[2020-09-07] MEDS: Tamsulosin HCl 0.4 MG CAP PO SCH (21:36)
[2020-09-07] MEDS: Benzonatate 100 MG CAP PO PRN (21:36)
[2020-09-07] MEDS: Ondansetron PF 4 MG/2 ML Vial IVP PRN (23:51)
[2020-09-08] MEDS: guaiFENesin 100 MG/5 ML UDCUP PO SCH ×4 (02:02→20:05)
[2020-09-08] MEDS: Docusate Sodium 100 MG/10 ML UDCUP PO SCH ×2 (02:03→16:21)
[2020-09-08] MEDS ORDERED: Lorazepam 2 MG/ML VIAL SLOW IVP SCH (04:15)
[2020-09-08] MEDS: Furosemide 40 MG/4 ML VIAL SLOW IVP SCH ×2 (04:25→15:49)
[2020-09-08] MEDS: Ivabradine 5 MG TAB PO SCH ×2 (06:03→17:15)
[2020-09-08] MEDS: Budesonide 0.5 MG/2 ML NEB NEB SCH ×2 (07:40→19:56)
[2020-09-08] MEDS ORDERED: Acetaminophen 325 MG TAB PO PRN (10:24)
[2020-09-08] MEDS: Potassium Chloride 20 MEQ TAB PER TUBE SCH (10:50)
[2020-09-08] MEDS: Cholecalciferol (Vitamin D3) 400 UNITS TAB PO SCH (10:50)
[2020-09-08] MEDS: Pantoprazole 40 MG VIAL IVP SCH ×2 (10:51→20:07)
[2020-09-08] MEDS: Ascorbic Acid 500 mg Chewable Tablet PO SCH (10:51)
[2020-09-08] MEDS: Polyethylene Glycol 3350 17 GM Packet PER TUBE SCH (10:51)
[2020-09-08] MEDS: clonazePAM 0.5 MG TAB PO PRN (10:51)
[2020-09-08] MEDS: Lantus 1000 UNITS/10 ML VIAL SC SCH ×2 (10:57→20:06)
[2020-09-08] MEDS: Metoprolol Tartrate 25 MG TAB PO SCH ×2 (10:58→20:07)
[2020-09-08] MEDS: Magnesium Oxide 400 MG TAB PO SCH (10:58)
[2020-09-08] MEDS: Insulin Regular 300 UNITS/3 ML VIAL SC PRN ×3 (11:00→22:35)
[2020-09-08] MEDS: Zinc Gluconate 50 MG TAB PO SCH (12:17)
[2020-09-08] MEDS: Cholestyramine/Aspartame 4 gm Packet PO SCH ×2 (12:19→20:08)
[2020-09-08] MEDS: Enoxaparin Sodium 40 MG/0.4 ML SYRINGE SC SCH (20:06)
[2020-09-08] MEDS: Tamsulosin HCl 0.4 MG CAP PO SCH (20:07)
[2020-09-09] MEDS: guaiFENesin 100 MG/5 ML UDCUP PO SCH ×4 (02:42→21:02)
[2020-09-09] MEDS: Docusate Sodium 100 MG/10 ML UDCUP PO SCH ×2 (02:43→15:19)
[2020-09-09 04:28] LABS: ALT (SGPT) 36 U/L (8-55); AST (SGOT) 17 U/L (5-34); Albumin 3.7 g/dL (3.5-5.0); Alkaline Phosphatase 140 U/L (40-110); BUN (Urea Nitrogen) 16 mg/dL (8.4-25.7); Bilirubin, Total 0.6 mg/dL (0.2-1.2); Calc. Creatinine Clearance 139 mL/min (70-130); Calcium 9.7 mg/dL (7.8-10.44); Globulin 4.3 g/dL (2.4-3.5); Glucose 199 mg/dL (70-105); Magnesium 1.9 mg/dL (1.6-2.6)
[2020-09-09 04:29] LABS: #Basophils 0.1 10x3/uL (0.0-0.2); #Eosinphils 0.2 10x3/uL (0.0-0.5); #Monocytes 0.6 10x3/uL (0.0-1.1); #Neutrophils 8.1 10x3/uL (1.5-8.4); %Eosinophils 1.5 % (0.0-6.0); %Lymphocytes 11.8 % (18.0-47.0); %Neutrophils 77.7 % (40.0-75.0); Hemoglobin 12.4 g/dL (13.5-17.5); Mean Corpuscular HGB CONC 30.5 g/dL (32.0-36.0); Mean Corpuscular Hemoglobin 28.1 pg (27.0-33.0); Mean Corpuscular Volume 92.3 fl (81.2-95.1); Mean Platelet Volume 10.3 fl (7.4-10.4); Platelet Count 341 10x3/uL (150-450); Red Blood Cell (RBC) Count 4.41 10x6/uL (4.32-5.72); White Blood Cell (WBC) Count 10.5 10x3/uL (3.5-10.5)
[2020-09-09 04:35] LABS: Anion Gap 15 mmol/L (10-20); Carbon Dioxide 37 mmol/L (22-29); Chloride 88 mmol/L (98-107); Potassium 4.8 mmol/L (3.5-5.1); Sodium 135 mmol/L (136-145)
[2020-09-09] MEDS: Furosemide 40 MG/4 ML VIAL SLOW IVP SCH ×2 (05:12→15:39)
[2020-09-09] MEDS: Insulin Regular 300 UNITS/3 ML VIAL SC PRN ×4 (05:13→22:10)
[2020-09-09] MEDS: Ivabradine 5 MG TAB PO SCH ×2 (05:13→15:39)
[2020-09-09] MEDS: Budesonide 0.5 MG/2 ML NEB NEB SCH ×2 (07:03→19:21)
[2020-09-09] MEDS: Ondansetron PF 4 MG/2 ML Vial IVP PRN (08:55)
[2020-09-09] MEDS: Mag-Al Plus 1200 MG/1200 MG/120 MG/30 ML UDCUP PO PRN ×2 (08:55→19:42)
[2020-09-09] MEDS: Pantoprazole 40 MG VIAL IVP SCH ×2 (08:55→21:04)
[2020-09-09] MEDS: Ascorbic Acid 500 mg Chewable Tablet PO SCH (08:56)
[2020-09-09] MEDS: Cholecalciferol (Vitamin D3) 400 UNITS TAB PO SCH (08:56)
[2020-09-09] MEDS: Potassium Chloride 20 MEQ TAB PER TUBE SCH (08:56)
[2020-09-09] MEDS: Zinc Gluconate 50 MG TAB PO SCH (08:56)
[2020-09-09] MEDS: Magnesium Oxide 400 MG TAB PO SCH (08:56)
[2020-09-09] MEDS: Metoprolol Tartrate 25 MG TAB PO SCH ×2 (08:56→21:03)
[2020-09-09] MEDS: Calcium Carbonate 500 MG ChewTAB PO PRN ×2 (08:57→19:42)
[2020-09-09] MEDS: Lantus 1000 UNITS/10 ML VIAL SC SCH ×2 (08:59→21:02)
[2020-09-09] MEDS: oxyCODONE 5 MG TAB PER TUBE PRN ×2 (10:24→21:45)
[2020-09-09] MEDS: Cholestyramine/Aspartame 4 gm Packet PO SCH ×2 (10:26→21:40)
[2020-09-09] MEDS: Polyethylene Glycol 3350 17 GM Packet PER TUBE SCH (10:41)
[2020-09-09] MEDS ORDERED: Pantoprazole 40 MG VIAL ONE (20:55)
[2020-09-09] MEDS: Enoxaparin Sodium 40 MG/0.4 ML SYRINGE SC SCH (21:03)
[2020-09-09] MEDS: Tamsulosin HCl 0.4 MG CAP PO SCH (21:03)
[2020-09-10] MEDS: guaiFENesin 100 MG/5 ML UDCUP PO SCH ×4 (02:10→21:33)
[2020-09-10] MEDS: Docusate Sodium 100 MG/10 ML UDCUP PO SCH ×2 (02:10→13:46)
[2020-09-10] MEDS: Insulin Regular 300 UNITS/3 ML VIAL SC PRN ×4 (04:48→23:07)
[2020-09-10] MEDS: Ivabradine 5 MG TAB PO SCH ×2 (04:48→17:36)
[2020-09-10 05:07] LABS: #Basophils 0.1 10x3/uL (0.0-0.2); #Eosinphils 0.3 10x3/uL (0.0-0.5); #Monocytes 0.9 10x3/uL (0.0-1.1); #Neutrophils 8.2 10x3/uL (1.5-8.4); %Basophils 0.7 % (0.0-2.0); %Eosinophils 2.4 % (0.0-6.0); %Monocytes 7.6 % (0.0-10.0); %Neutrophils 73.5 % (40.0-75.0); Hemoglobin 12.2 g/dL (13.5-17.5); Mean Corpuscular HGB CONC 30.9 g/dL (32.0-36.0); Mean Corpuscular Hemoglobin 28.6 pg (27.0-33.0); Mean Corpuscular Volume 92.7 fl (81.2-95.1); Mean Platelet Volume 9.9 fl (7.4-10.4); Platelet Count 328 10x3/uL (150-450); RBC Distribution Width 14.9 % (11.5-14.5); Red Blood Cell (RBC) Count 4.26 10x6/uL (4.32-5.72); White Blood Cell (WBC) Count 11.2 10x3/uL (3.5-10.5)
[2020-09-10] MEDS: clonazePAM 0.5 MG TAB PO PRN ×2 (05:22→14:47)
[2020-09-10] MEDS: Furosemide 40 MG/4 ML VIAL SLOW IVP SCH (06:26)
[2020-09-10] MEDS: Budesonide 0.5 MG/2 ML NEB NEB SCH ×2 (07:32→19:25)
[2020-09-10] MEDS: Mag-Al Plus 1200 MG/1200 MG/120 MG/30 ML UDCUP PO PRN (09:17)
[2020-09-10] MEDS: Magnesium Oxide 400 MG TAB PO SCH (09:18)
[2020-09-10] MEDS: Ascorbic Acid 500 mg Chewable Tablet PO SCH (09:18)
[2020-09-10] MEDS: Metoprolol Tartrate 25 MG TAB PO SCH ×2 (09:18→21:33)
[2020-09-10] MEDS: oxyCODONE 5 MG TAB PER TUBE PRN ×2 (09:18→14:46)
[2020-09-10] MEDS: Cholecalciferol (Vitamin D3) 400 UNITS TAB PO SCH (09:18)
[2020-09-10] MEDS: Potassium Chloride 20 MEQ TAB PER TUBE SCH (09:18)
[2020-09-10] MEDS: Calcium Carbonate 500 MG ChewTAB PO PRN (09:19)
[2020-09-10] MEDS: Zinc Gluconate 50 MG TAB PO SCH (09:19)
[2020-09-10] MEDS: Pantoprazole 40 MG VIAL IVP SCH ×2 (09:19→21:33)
[2020-09-10] MEDS: Polyethylene Glycol 3350 17 GM Packet PER TUBE SCH (09:22)
[2020-09-10] MEDS: Lantus 1000 UNITS/10 ML VIAL SC SCH ×2 (09:22→21:32)
[2020-09-10] MEDS: Cholestyramine/Aspartame 4 gm Packet PO SCH ×2 (11:45→21:34)
[2020-09-10] MEDS: Furosemide 20 MG/2 ML VIAL SLOW IVP SCH (13:45)
[2020-09-10] MEDS: Acetaminophen 325 MG TAB PO PRN (14:47)
[2020-09-10] MEDS: Tamsulosin HCl 0.4 MG CAP PO SCH (21:33)
[2020-09-10] MEDS: Enoxaparin Sodium 40 MG/0.4 ML SYRINGE SC SCH (21:33)
[2020-09-10] MEDS ORDERED: Simethicone 40 MG/0.6 ML Drop 30 ML BOT PO PRN (22:15)
[2020-09-10] MEDS: Simethicone Chewable 80 MG TAB PO PRN (23:50)
[2020-09-11] MEDS: oxyCODONE 5 MG TAB PER TUBE PRN ×3 (00:51→21:45)
[2020-09-11] MEDS: guaiFENesin 100 MG/5 ML UDCUP PO SCH ×4 (01:56→21:44)
[2020-09-11] MEDS: Docusate Sodium 100 MG/10 ML UDCUP PO SCH ×2 (01:56→14:04)
[2020-09-11] MEDS: Insulin Regular 300 UNITS/3 ML VIAL SC PRN ×4 (04:20→22:09)
[2020-09-11 05:02] LABS: ALT (SGPT) 32 U/L (8-55); AST (SGOT) 15 U/L (5-34); Albumin 3.7 g/dL (3.5-5.0); Alkaline Phosphatase 141 U/L (40-110); BUN (Urea Nitrogen) 30 mg/dL (8.4-25.7); Bilirubin, Total 0.7 mg/dL (0.2-1.2); Calc. Creatinine Clearance 128 mL/min (70-130); Calcium 9.5 mg/dL (7.8-10.44); Globulin 4.3 g/dL (2.4-3.5); Glucose 276 mg/dL (70-105)
[2020-09-11 05:09] LABS: Anion Gap 15 mmol/L (10-20); Chloride 84 mmol/L (98-107); Potassium 4.1 mmol/L (3.5-5.1); Sodium 137 mmol/L (136-145)
[2020-09-11 05:11] LABS: #Basophils 0.1 10x3/uL (0.0-0.2); #Eosinphils 0.2 10x3/uL (0.0-0.5); #Monocytes 1.1 10x3/uL (0.0-1.1); #Neutrophils 12.2 10x3/uL (1.5-8.4); %Basophils 0.6 % (0.0-2.0); %Eosinophils 1.5 % (0.0-6.0); %Lymphocytes 13.3 % (18.0-47.0); %Monocytes 6.6 % (0.0-10.0); %Neutrophils 76.9 % (40.0-75.0); Carbon Dioxide 42 mmol/L (22-29); Hemoglobin 11.7 g/dL (13.5-17.5); Mean Corpuscular Hemoglobin 28.8 pg (27.0-33.0); Mean Corpuscular Volume 92.9 fl (81.2-95.1); Mean Platelet Volume 10.3 fl (7.4-10.4); Platelet Count 337 10x3/uL (150-450); RBC Distribution Width 14.8 % (11.5-14.5); Red Blood Cell (RBC) Count 4.06 10x6/uL (4.32-5.72); White Blood Cell (WBC) Count 15.8 10x3/uL (3.5-10.5)
[2020-09-11] MEDS: Ivabradine 5 MG TAB PO SCH ×2 (05:55→17:49)
[2020-09-11] MEDS: Furosemide 20 MG/2 ML VIAL SLOW IVP SCH ×2 (05:55→14:04)
[2020-09-11] MEDS: Budesonide 0.5 MG/2 ML NEB NEB SCH ×2 (09:04→18:45)
[2020-09-11] MEDS: Potassium Chloride 20 MEQ TAB PER TUBE SCH (09:24)
[2020-09-11] MEDS: Metoprolol Tartrate 25 MG TAB PO SCH ×2 (09:24→21:46)
[2020-09-11] MEDS: Magnesium Oxide 400 MG TAB PO SCH (09:25)
[2020-09-11] MEDS: Ascorbic Acid 500 mg Chewable Tablet PO SCH (09:25)
[2020-09-11] MEDS: Simethicone Chewable 80 MG TAB PO PRN ×2 (09:25→21:46)
[2020-09-11] MEDS: Zinc Gluconate 50 MG TAB PO SCH (09:25)
[2020-09-11] MEDS: Cholecalciferol (Vitamin D3) 400 UNITS TAB PO SCH (09:25)
[2020-09-11] MEDS: Lantus 1000 UNITS/10 ML VIAL SC SCH ×2 (09:26→21:47)
[2020-09-11] MEDS: Pantoprazole 40 MG VIAL IVP SCH ×2 (09:26→21:48)
[2020-09-11] MEDS: Polyethylene Glycol 3350 17 GM Packet PER TUBE SCH (09:27)
[2020-09-11] MEDS: clonazePAM 0.5 MG TAB PO PRN (09:27)
[2020-09-11] MEDS: Cholestyramine/Aspartame 4 gm Packet PO SCH (12:25)
[2020-09-11] MEDS: Mag-Al Plus 1200 MG/1200 MG/120 MG/30 ML UDCUP PO PRN (17:49)
[2020-09-11] MEDS: Enoxaparin Sodium 40 MG/0.4 ML SYRINGE SC SCH (21:44)
[2020-09-11] MEDS: Tamsulosin HCl 0.4 MG CAP PO SCH (21:46)
[2020-09-12] MEDS: Cholestyramine/Aspartame 4 gm Packet PO SCH ×3 (03:43→22:10)
[2020-09-12] MEDS: guaiFENesin 100 MG/5 ML UDCUP PO SCH ×4 (03:48→20:32)
[2020-09-12] MEDS: Docusate Sodium 100 MG/10 ML UDCUP PO SCH ×2 (03:48→13:49)
[2020-09-12] MEDS: Simethicone Chewable 80 MG TAB PO PRN (03:49)
[2020-09-12] MEDS: oxyCODONE 5 MG TAB PER TUBE PRN (03:52)
[2020-09-12] MEDS: Insulin Regular 300 UNITS/3 ML VIAL SC PRN ×3 (03:58→16:33)
[2020-09-12 04:00] LABS: #Basophils 0.1 10x3/uL (0.0-0.2); #Eosinphils 0.4 10x3/uL (0.0-0.5); #Neutrophils 8.3 10x3/uL (1.5-8.4); %Basophils 0.8 % (0.0-2.0); %Eosinophils 2.9 % (0.0-6.0); %Lymphocytes 17.3 % (18.0-47.0); %Monocytes 7.9 % (0.0-10.0); %Neutrophils 68.5 % (40.0-75.0); Hemoglobin 11.4 g/dL (13.5-17.5); Mean Corpuscular HGB CONC 31.2 g/dL (32.0-36.0); Mean Corpuscular Hemoglobin 28.9 pg (27.0-33.0); Mean Corpuscular Volume 92.4 fl (81.2-95.1); Mean Platelet Volume 9.8 fl (7.4-10.4); Platelet Count 309 10x3/uL (150-450); RBC Distribution Width 14.9 % (11.5-14.5); Red Blood Cell (RBC) Count 3.95 10x6/uL (4.32-5.72); White Blood Cell (WBC) Count 12.2 10x3/uL (3.5-10.5)
[2020-09-12 04:09] LABS: BUN (Urea Nitrogen) 26 mg/dL (8.4-25.7); Calc. Creatinine Clearance 143 mL/min (70-130); Calcium 9.3 mg/dL (7.8-10.44); Glucose 262 mg/dL (70-105); Magnesium 1.9 mg/dL (1.6-2.6)
[2020-09-12 04:16] LABS: Anion Gap 20 mmol/L (10-20); Carbon Dioxide 38 mmol/L (22-29); Chloride 82 mmol/L (98-107); Potassium 3.9 mmol/L (3.5-5.1); Sodium 136 mmol/L (136-145)
[2020-09-12] MEDS: Furosemide 20 MG/2 ML VIAL SLOW IVP SCH ×2 (06:18→13:49)
[2020-09-12] MEDS: Ivabradine 5 MG TAB PO SCH ×2 (06:19→17:16)
[2020-09-12] MEDS: Budesonide 0.5 MG/2 ML NEB NEB SCH ×2 (07:00→19:18)
[2020-09-12] MEDS: clonazePAM 0.5 MG TAB PO PRN (07:03)
[2020-09-12] MEDS: Zinc Gluconate 50 MG TAB PO SCH (08:27)
[2020-09-12] MEDS: Ascorbic Acid 500 mg Chewable Tablet PO SCH (08:27)
[2020-09-12] MEDS: Magnesium Oxide 400 MG TAB PO SCH (08:27)
[2020-09-12] MEDS: Potassium Chloride 20 MEQ TAB PER TUBE SCH (08:27)
[2020-09-12] MEDS: Cholecalciferol (Vitamin D3) 400 UNITS TAB PO SCH (08:28)
[2020-09-12] MEDS: Metoprolol Tartrate 25 MG TAB PO SCH ×2 (08:28→20:32)
[2020-09-12] MEDS: Pantoprazole 40 MG VIAL IVP SCH ×2 (08:28→20:34)
[2020-09-12] MEDS: Lantus 1000 UNITS/10 ML VIAL SC SCH ×2 (08:29→20:32)
[2020-09-12] MEDS: Polyethylene Glycol 3350 17 GM Packet PER TUBE SCH (08:45)
[2020-09-12] MEDS ORDERED: Lantus 1000 UNITS/10 ML VIAL SC SCH (12:45)
[2020-09-12] MEDS: Acetaminophen 325 MG TAB PO PRN (13:48)
[2020-09-12] MEDS: Enoxaparin Sodium 40 MG/0.4 ML SYRINGE SC SCH (20:31)
[2020-09-12] MEDS: Tamsulosin HCl 0.4 MG CAP PO SCH (20:31)
[2020-09-13] MEDS: HYDROcodone/Acetaminophen 5/325 mg Tablet PO PRN ×5 (00:58→20:34)
[2020-09-13] MEDS: Docusate Sodium 100 MG/10 ML UDCUP PO SCH ×2 (04:10→15:33)
[2020-09-13] MEDS: guaiFENesin 100 MG/5 ML UDCUP PO SCH ×4 (04:10→20:27)
[2020-09-13 04:47] LABS: #Basophils 0.1 10x3/uL (0.0-0.2); #Eosinphils 0.2 10x3/uL (0.0-0.5); #Monocytes 0.8 10x3/uL (0.0-1.1); #Neutrophils 7.8 10x3/uL (1.5-8.4); %Basophils 0.8 % (0.0-2.0); %Lymphocytes 19.6 % (18.0-47.0); %Monocytes 7.1 % (0.0-10.0); %Neutrophils 68.1 % (40.0-75.0); Hemoglobin 11.6 g/dL (13.5-17.5); Mean Corpuscular Volume 90.3 fl (81.2-95.1); Platelet Count 308 10x3/uL (150-450); RBC Distribution Width 14.9 % (11.5-14.5); Red Blood Cell (RBC) Count 4.14 10x6/uL (4.32-5.72); White Blood Cell (WBC) Count 11.5 10x3/uL (3.5-10.5)
[2020-09-13 04:58] LABS: BUN (Urea Nitrogen) 16 mg/dL (8.4-25.7); Calc. Creatinine Clearance 157 mL/min (70-130); Calcium 9.5 mg/dL (7.8-10.44); Glucose 137 mg/dL (70-105); Magnesium 1.9 mg/dL (1.6-2.6)
[2020-09-13 05:06] LABS: Anion Gap 20 mmol/L (10-20); Carbon Dioxide 37 mmol/L (22-29); Chloride 83 mmol/L (98-107); Potassium 3.8 mmol/L (3.5-5.1); Sodium 136 mmol/L (136-145)
[2020-09-13] MEDS: Ivabradine 5 MG TAB PO SCH ×2 (05:58→19:33)
[2020-09-13] MEDS: Furosemide 20 MG/2 ML VIAL SLOW IVP SCH ×2 (05:58→15:26)
[2020-09-13] MEDS: Budesonide 0.5 MG/2 ML NEB NEB SCH ×2 (07:49→18:43)
[2020-09-13] MEDS: Ascorbic Acid 500 mg Chewable Tablet PO SCH (09:05)
[2020-09-13] MEDS: Cholecalciferol (Vitamin D3) 400 UNITS TAB PO SCH (09:05)
[2020-09-13] MEDS: Potassium Chloride 20 MEQ TAB PER TUBE SCH (09:06)
[2020-09-13] MEDS: Pantoprazole 40 MG VIAL IVP SCH ×2 (09:07→20:28)
[2020-09-13] MEDS: Magnesium Oxide 400 MG TAB PO SCH (09:07)
[2020-09-13] MEDS: Polyethylene Glycol 3350 17 GM Packet PER TUBE SCH (09:07)
[2020-09-13] MEDS: Metoprolol Tartrate 25 MG TAB PO SCH ×2 (09:07→20:28)
[2020-09-13] MEDS: Zinc Gluconate 50 MG TAB PO SCH (09:07)
[2020-09-13] MEDS: Lantus 1000 UNITS/10 ML VIAL SC SCH ×2 (09:36→20:28)
[2020-09-13] MEDS: Cholestyramine/Aspartame 4 gm Packet PO SCH ×2 (11:13→21:05)
[2020-09-13] MEDS: Enoxaparin Sodium 40 MG/0.4 ML SYRINGE SC SCH (20:28)
[2020-09-13] MEDS: Tamsulosin HCl 0.4 MG CAP PO SCH (21:05)
[2020-09-13] MEDS: Insulin Regular 300 UNITS/3 ML VIAL SC PRN (21:09)
[2020-09-14] MEDS: guaiFENesin 100 MG/5 ML UDCUP PO SCH (02:03)
[2020-09-14] MEDS: Docusate Sodium 100 MG/10 ML UDCUP PO SCH ×2 (02:04→14:33)
[2020-09-14 05:01] LABS: #Basophils 0.1 10x3/uL (0.0-0.2); #Eosinphils 0.3 10x3/uL (0.0-0.5); #Monocytes 0.9 10x3/uL (0.0-1.1); %Basophils 0.5 % (0.0-2.0); %Eosinophils 2.7 % (0.0-6.0); %Lymphocytes 15.4 % (18.0-47.0); %Monocytes 7.3 % (0.0-10.0); %Neutrophils 72.2 % (40.0-75.0); Mean Corpuscular HGB CONC 31.9 g/dL (32.0-36.0); Mean Corpuscular Hemoglobin 28.8 pg (27.0-33.0); Mean Corpuscular Volume 90.4 fl (81.2-95.1); Mean Platelet Volume 9.6 fl (7.4-10.4); Platelet Count 318 10x3/uL (150-450); RBC Distribution Width 14.8 % (11.5-14.5); Red Blood Cell (RBC) Count 4.16 10x6/uL (4.32-5.72); White Blood Cell (WBC) Count 12.4 10x3/uL (3.5-10.5)
[2020-09-14 05:04] LABS: BUN (Urea Nitrogen) 11 mg/dL (8.4-25.7); Calc. Creatinine Clearance 160 mL/min (70-130); Calcium 9.5 mg/dL (7.8-10.44); Glucose 104 mg/dL (70-105); Magnesium 1.9 mg/dL (1.6-2.6)
[2020-09-14 05:11] LABS: Anion Gap 15 mmol/L (10-20); Chloride 84 mmol/L (98-107); Potassium 3.7 mmol/L (3.5-5.1); Sodium 136 mmol/L (136-145)
[2020-09-14 05:14] LABS: Carbon Dioxide 41 mmol/L (22-29)
[2020-09-14] MEDS: HYDROcodone/Acetaminophen 5/325 mg Tablet PO PRN ×2 (05:30→11:43)
[2020-09-14] MEDS: Ivabradine 5 MG TAB PO SCH ×2 (05:30→16:43)
[2020-09-14] MEDS: Furosemide 20 MG/2 ML VIAL SLOW IVP SCH ×2 (05:30→14:34)
[2020-09-14] MEDS: Budesonide 0.5 MG/2 ML NEB NEB SCH ×2 (07:25→18:55)
[2020-09-14] MEDS: Potassium Chloride 20 MEQ TAB PER TUBE SCH (09:37)
[2020-09-14] MEDS: Ascorbic Acid 500 mg Chewable Tablet PO SCH (09:38)
[2020-09-14] MEDS: Pantoprazole 40 MG VIAL IVP SCH ×2 (09:39→20:28)
[2020-09-14] MEDS: Zinc Gluconate 50 MG TAB PO SCH (09:39)
[2020-09-14] MEDS: Magnesium Oxide 400 MG TAB PO SCH (09:40)
[2020-09-14] MEDS: Metoprolol Tartrate 25 MG TAB PO SCH ×2 (09:40→20:28)
[2020-09-14] MEDS: Lantus 1000 UNITS/10 ML VIAL SC SCH ×2 (09:43→20:31)
[2020-09-14] MEDS: Cholestyramine/Aspartame 4 gm Packet PO SCH ×2 (09:43→22:58)
[2020-09-14] MEDS: Cholecalciferol (Vitamin D3) 400 UNITS TAB PO SCH (09:45)
[2020-09-14] MEDS: Polyethylene Glycol 3350 17 GM Packet PER TUBE SCH (09:52)
[2020-09-14] MEDS: Insulin Regular 300 UNITS/3 ML VIAL SC PRN (10:40)
[2020-09-14] MEDS: GUAIFENESIN SF SOLN 200 MG/10 ML UDCUP PO SCH ×4 (11:34→23:06)
[2020-09-14] MEDS: Calcium Carbonate 500 MG ChewTAB PO PRN (18:55)
[2020-09-14] MEDS: Enoxaparin Sodium 40 MG/0.4 ML SYRINGE SC SCH (20:27)
[2020-09-14] MEDS: Tamsulosin HCl 0.4 MG CAP PO SCH (20:28)
[2020-09-14] MEDS: oxyCODONE 5 MG TAB PER TUBE PRN (20:28)
[2020-09-14] MEDS: Simethicone Chewable 80 MG TAB PO PRN (20:30)
[2020-09-14] MEDS: clonazePAM 0.5 MG TAB PO PRN (23:05)
[2020-09-15] MEDS: Docusate Sodium 100 MG/10 ML UDCUP PO SCH ×2 (02:05→13:35)
[2020-09-15 04:39] LABS: #Basophils 0.1 10x3/uL (0.0-0.2); #Eosinphils 0.3 10x3/uL (0.0-0.5); #Monocytes 0.8 10x3/uL (0.0-1.1); #Neutrophils 5.2 10x3/uL (1.5-8.4); %Basophils 0.7 % (0.0-2.0); %Eosinophils 3.1 % (0.0-6.0); %Monocytes 9.6 % (0.0-10.0); %Neutrophils 64.3 % (40.0-75.0); Hemoglobin 11.6 g/dL (13.5-17.5); Mean Corpuscular HGB CONC 31.5 g/dL (32.0-36.0); Mean Corpuscular Hemoglobin 28.5 pg (27.0-33.0); Mean Corpuscular Volume 90.4 fl (81.2-95.1); Mean Platelet Volume 9.9 fl (7.4-10.4); Platelet Count 270 10x3/uL (150-450); Red Blood Cell (RBC) Count 4.07 10x6/uL (4.32-5.72); White Blood Cell (WBC) Count 8.1 10x3/uL (3.5-10.5)
[2020-09-15] MEDS: HYDROcodone/Acetaminophen 5/325 mg Tablet PO PRN (04:39)
[2020-09-15] MEDS: Ivabradine 5 MG TAB PO SCH ×2 (04:39→17:20)
[2020-09-15 04:53] LABS: BUN (Urea Nitrogen) 12 mg/dL (8.4-25.7); Calc. Creatinine Clearance 167 mL/min (70-130); Calcium 9.4 mg/dL (7.8-10.44); Glucose 98 mg/dL (70-105); Magnesium 1.8 mg/dL (1.6-2.6)
[2020-09-15 05:01] LABS: Anion Gap 16 mmol/L (10-20); Carbon Dioxide 38 mmol/L (22-29); Chloride 87 mmol/L (98-107); Potassium 3.8 mmol/L (3.5-5.1); Sodium 137 mmol/L (136-145)
[2020-09-15] MEDS: GUAIFENESIN SF SOLN 200 MG/10 ML UDCUP PO SCH ×3 (05:48→17:23)
[2020-09-15] MEDS: Budesonide 0.5 MG/2 ML NEB NEB SCH ×2 (07:00→18:38)
[2020-09-15] MEDS: Potassium Chloride 20 MEQ TAB PER TUBE SCH (07:48)
[2020-09-15] MEDS: Cholecalciferol (Vitamin D3) 400 UNITS TAB PO SCH (07:48)
[2020-09-15] MEDS: Polyethylene Glycol 3350 17 GM Packet PER TUBE SCH (07:55)
[2020-09-15] MEDS: clonazePAM 0.5 MG TAB PO SCH ×3 (07:59→20:56)
[2020-09-15] MEDS: Magnesium Oxide 400 MG TAB PO SCH (08:03)
[2020-09-15] MEDS: Metoprolol Tartrate 25 MG TAB PO SCH ×2 (08:04→20:57)
[2020-09-15] MEDS: Pantoprazole 40 MG VIAL IVP SCH ×2 (08:04→20:57)
[2020-09-15] MEDS: Lantus 1000 UNITS/10 ML VIAL SC SCH ×2 (08:06→20:58)
[2020-09-15] MEDS: Simethicone Chewable 80 MG TAB PO PRN ×2 (08:36→17:24)
[2020-09-15] MEDS: Cholestyramine/Aspartame 4 gm Packet PO SCH ×2 (09:40→20:58)
[2020-09-15] MEDS: Insulin Regular 300 UNITS/3 ML VIAL SC PRN ×2 (10:45→16:25)
[2020-09-15] MEDS: Enoxaparin Sodium 40 MG/0.4 ML SYRINGE SC SCH (20:56)
[2020-09-15] MEDS: Tamsulosin HCl 0.4 MG CAP PO SCH (20:57)
[2020-09-15] MEDS: oxyCODONE 5 MG TAB PER TUBE PRN (20:57)
[2020-09-16] MEDS: GUAIFENESIN SF SOLN 200 MG/10 ML UDCUP PO SCH ×5 (00:19→23:55)
[2020-09-16] MEDS: Docusate Sodium 100 MG/10 ML UDCUP PO SCH ×2 (02:30→13:20)
[2020-09-16] MEDS: HYDROcodone/Acetaminophen 5/325 mg Tablet PO PRN ×2 (05:32→19:16)
[2020-09-16] MEDS: Ivabradine 5 MG TAB PO SCH ×2 (05:32→17:07)
[2020-09-16] MEDS: Simethicone Chewable 80 MG TAB PO PRN ×2 (05:33→21:22)
[2020-09-16] MEDS: Budesonide 0.5 MG/2 ML NEB NEB SCH ×2 (07:42→18:50)
[2020-09-16] MEDS: Potassium Chloride 20 MEQ TAB PER TUBE SCH (09:44)
[2020-09-16] MEDS: Pantoprazole 40 MG VIAL IVP SCH ×2 (09:44→21:21)
[2020-09-16] MEDS: clonazePAM 0.5 MG TAB PO SCH ×3 (09:45→21:21)
[2020-09-16] MEDS: Magnesium Oxide 400 MG TAB PO SCH (09:45)
[2020-09-16] MEDS: Metoprolol Tartrate 25 MG TAB PO SCH ×2 (09:45→21:20)
[2020-09-16] MEDS: Cholecalciferol (Vitamin D3) 400 UNITS TAB PO SCH (09:45)
[2020-09-16] MEDS: Lantus 1000 UNITS/10 ML VIAL SC SCH ×2 (13:03→21:21)
[2020-09-16] MEDS: Polyethylene Glycol 3350 17 GM Packet PER TUBE SCH (13:04)
[2020-09-16] MEDS: Cholestyramine/Aspartame 4 gm Packet PO SCH (13:05)
[2020-09-16] MEDS: oxyCODONE 5 MG TAB PER TUBE PRN (16:00)
[2020-09-16] MEDS: Enoxaparin Sodium 40 MG/0.4 ML SYRINGE SC SCH (21:20)
[2020-09-16] MEDS: Tamsulosin HCl 0.4 MG CAP PO SCH (21:21)
[2020-09-16] MEDS: Insulin Regular 300 UNITS/3 ML VIAL SC PRN (22:40)
[2020-09-17] MEDS: oxyCODONE 5 MG TAB PER TUBE PRN (04:12)
[2020-09-17] MEDS: Docusate Sodium 100 MG/10 ML UDCUP PO SCH ×2 (04:13→14:30)
[2020-09-17 04:18] LABS: Actual Bicarbonate (HCO3a) 41.6 mEq/L (22-28); Base Excess (BEa) 11.6 mEq/L (-2.0 to +3.0); CO2 Tension 88.9 mmHg (35.0-45.0); Carboxyhemoglobin (COHb) 1.8 gm% (0.0-3.0); Hemoglobin (Hb) 12.1 g/dL (14.0-18.0); O2 Tension (PaO2), arterial 53.5 mmHg (80.0-100.0); Puncture Site RRA; pH, Arterial 7.29 (7.35-7.45)
[2020-09-17] MEDS: GUAIFENESIN SF SOLN 200 MG/10 ML UDCUP PO SCH ×3 (05:51→17:24)
[2020-09-17] MEDS: Ivabradine 5 MG TAB PO SCH ×2 (05:51→17:24)
[2020-09-17] MEDS: Insulin Regular 300 UNITS/3 ML VIAL SC PRN ×2 (05:53→20:16)
[2020-09-17] MEDS: Budesonide 0.5 MG/2 ML NEB NEB SCH ×2 (08:36→19:27)
[2020-09-17] MEDS: clonazePAM 0.5 MG TAB PO SCH ×3 (08:53→20:00)
[2020-09-17] MEDS: Cholecalciferol (Vitamin D3) 400 UNITS TAB PO SCH (08:53)
[2020-09-17] MEDS: Potassium Chloride 20 MEQ TAB PER TUBE SCH (08:53)
[2020-09-17] MEDS: Lantus 1000 UNITS/10 ML VIAL SC SCH ×2 (08:53→20:15)
[2020-09-17] MEDS: Metoprolol Tartrate 25 MG TAB PO SCH ×2 (08:54→20:01)
[2020-09-17] MEDS: Magnesium Oxide 400 MG TAB PO SCH (08:54)
[2020-09-17] MEDS: Pantoprazole 40 MG VIAL IVP SCH ×2 (08:55→20:01)
[2020-09-17] MEDS: Polyethylene Glycol 3350 17 GM Packet PER TUBE SCH (08:55)
[2020-09-17 18:29] LABS: ALV-art Gradient 49.275 mmHg (0-20)
[2020-09-17] MEDS: Enoxaparin Sodium 40 MG/0.4 ML SYRINGE SC SCH (20:01)
[2020-09-17] MEDS: Tamsulosin HCl 0.4 MG CAP PO SCH (20:30)
[2020-09-18] MEDS: GUAIFENESIN SF SOLN 200 MG/10 ML UDCUP PO SCH ×4 (00:03→18:12)
[2020-09-18] MEDS: Docusate Sodium 100 MG/10 ML UDCUP PO SCH ×2 (00:03→13:21)
[2020-09-18] MEDS: Ivabradine 5 MG TAB PO SCH ×2 (06:19→18:08)
[2020-09-18] MEDS: Budesonide 0.5 MG/2 ML NEB NEB SCH ×2 (07:30→19:31)
[2020-09-18] MEDS: oxyCODONE 5 MG TAB PER TUBE PRN (07:58)
[2020-09-18] MEDS: Cholecalciferol (Vitamin D3) 400 UNITS TAB PO SCH (08:25)
[2020-09-18] MEDS: Potassium Chloride 20 MEQ TAB PER TUBE SCH (08:25)
[2020-09-18] MEDS: clonazePAM 0.5 MG TAB PO SCH ×3 (08:26→20:40)
[2020-09-18] MEDS: Magnesium Oxide 400 MG TAB PO SCH (08:26)
[2020-09-18] MEDS: Metoprolol Tartrate 25 MG TAB PO SCH ×2 (08:26→20:41)
[2020-09-18] MEDS: Lantus 1000 UNITS/10 ML VIAL SC SCH ×2 (08:26→21:30)
[2020-09-18] MEDS: Pantoprazole 40 MG VIAL IVP SCH ×2 (08:27→20:41)
[2020-09-18] MEDS: Polyethylene Glycol 3350 17 GM Packet PER TUBE SCH (08:27)
[2020-09-18] MEDS ORDERED: Acetaminophen 325 MG TAB PO PRN (10:26)
[2020-09-18] MEDS: Insulin Regular 300 UNITS/3 ML VIAL SC PRN ×2 (10:46→21:30)
[2020-09-18] MEDS: Enoxaparin Sodium 40 MG/0.4 ML SYRINGE SC SCH (20:40)
[2020-09-18] MEDS: Tamsulosin HCl 0.4 MG CAP PO SCH (20:42)
[2020-09-19] MEDS: Docusate Sodium 100 MG/10 ML UDCUP PO SCH ×2 (02:23→13:57)
[2020-09-19] MEDS: Insulin Regular 300 UNITS/3 ML VIAL SC PRN (04:16)
[2020-09-19] MEDS: Ivabradine 5 MG TAB PO SCH ×2 (04:59→17:06)
[2020-09-19] MEDS: GUAIFENESIN SF SOLN 200 MG/10 ML UDCUP PO SCH ×4 (05:00→17:07)
[2020-09-19] MEDS: Budesonide 0.5 MG/2 ML NEB NEB SCH ×2 (07:20→19:18)
[2020-09-19] MEDS: Polyethylene Glycol 3350 17 GM Packet PER TUBE SCH (10:55)
[2020-09-19] MEDS: Metoprolol Tartrate 25 MG TAB PO SCH ×2 (11:01→21:11)
[2020-09-19] MEDS: Lantus 1000 UNITS/10 ML VIAL SC SCH ×2 (11:01→21:21)
[2020-09-19] MEDS: Pantoprazole 40 MG VIAL IVP SCH ×2 (11:02→21:11)
[2020-09-19] MEDS: Scopolamine 1.5 mg/72 hour Patch TD SCH (11:02)
[2020-09-19] MEDS: Cholecalciferol (Vitamin D3) 400 UNITS TAB PO SCH (11:05)
[2020-09-19] MEDS: Potassium Chloride 20 MEQ TAB PER TUBE SCH (11:05)
[2020-09-19] MEDS: clonazePAM 0.5 MG TAB PO SCH ×3 (11:06→21:11)
[2020-09-19] MEDS: Magnesium Oxide 400 MG TAB PO SCH (11:06)
[2020-09-19] MEDS: Acetaminophen 325 MG TAB PO PRN (17:07)
[2020-09-19] MEDS: Calcium Carbonate 500 MG ChewTAB PO PRN (18:03)
[2020-09-19] MEDS: Tamsulosin HCl 0.4 MG CAP PO SCH (21:12)
[2020-09-19] MEDS: Enoxaparin Sodium 40 MG/0.4 ML SYRINGE SC SCH (21:14)
[2020-09-20] MEDS: Docusate Sodium 100 MG/10 ML UDCUP PO SCH ×2 (01:37→13:35)
[2020-09-20] MEDS: GUAIFENESIN SF SOLN 200 MG/10 ML UDCUP PO SCH ×5 (01:37→23:25)
[2020-09-20] MEDS: Ivabradine 5 MG TAB PO SCH ×2 (05:30→17:24)
[2020-09-20] MEDS: Budesonide 0.5 MG/2 ML NEB NEB SCH ×2 (07:15→19:26)
[2020-09-20 08:12] LABS: #Basophils 0.1 10x3/uL (0.0-0.2); #Eosinphils 0.4 10x3/uL (0.0-0.5); #Monocytes 0.7 10x3/uL (0.0-1.1); #Neutrophils 7.7 10x3/uL (1.5-8.4); %Basophils 0.8 % (0.0-2.0); %Eosinophils 3.3 % (0.0-6.0); %Monocytes 5.7 % (0.0-10.0); %Neutrophils 66.5 % (40.0-75.0); Hemoglobin 10.5 g/dL (13.5-17.5); Mean Corpuscular HGB CONC 31.1 g/dL (32.0-36.0); Mean Corpuscular Hemoglobin 28.8 pg (27.0-33.0); Mean Corpuscular Volume 92.9 fl (81.2-95.1); Mean Platelet Volume 9.8 fl (7.4-10.4); Platelet Count 248 10x3/uL (150-450); Red Blood Cell (RBC) Count 3.64 10x6/uL (4.32-5.72); White Blood Cell (WBC) Count 11.6 10x3/uL (3.5-10.5)
[2020-09-20 08:25] LABS: BUN (Urea Nitrogen) 9 mg/dL (8.4-25.7); Calc. Creatinine Clearance 150 mL/min (70-130); Calcium 9.3 mg/dL (7.8-10.44); Glucose 167 mg/dL (70-105)
[2020-09-20 08:33] LABS: Anion Gap 16 mmol/L (10-20); Carbon Dioxide 34 mmol/L (22-29); Chloride 94 mmol/L (98-107); Potassium 4.5 mmol/L (3.5-5.1); Sodium 139 mmol/L (136-145)
[2020-09-20] MEDS: Pantoprazole 40 MG VIAL IVP SCH ×2 (09:15→20:05)
[2020-09-20] MEDS: Metoprolol Tartrate 25 MG TAB PO SCH ×2 (09:16→20:04)
[2020-09-20] MEDS: Cholecalciferol (Vitamin D3) 400 UNITS TAB PO SCH (09:16)
[2020-09-20] MEDS: clonazePAM 0.5 MG TAB PO SCH ×3 (09:16→20:04)
[2020-09-20] MEDS: Potassium Chloride 20 MEQ TAB PER TUBE SCH (09:16)
[2020-09-20] MEDS: Magnesium Oxide 400 MG TAB PO SCH (09:16)
[2020-09-20] MEDS: Lantus 1000 UNITS/10 ML VIAL SC SCH ×2 (09:18→21:54)
[2020-09-20] MEDS: Polyethylene Glycol 3350 17 GM Packet PER TUBE SCH (09:26)
[2020-09-20] MEDS: Acetaminophen 325 MG TAB PO PRN (10:52)
[2020-09-20] MEDS ORDERED: Pantoprazole 40 MG VIAL ONE (19:59)
[2020-09-20] MEDS: Enoxaparin Sodium 40 MG/0.4 ML SYRINGE SC SCH (20:04)
[2020-09-20] MEDS: Tamsulosin HCl 0.4 MG CAP PO SCH (20:06)
[2020-09-21] MEDS: Simethicone Chewable 80 MG TAB PO PRN (02:15)
[2020-09-21] MEDS: Ondansetron PF 4 MG/2 ML Vial IVP PRN (04:03)
[2020-09-21 04:08] LABS: #Basophils 0.1 10x3/uL (0.0-0.2); #Eosinphils 0.5 10x3/uL (0.0-0.5); #Monocytes 0.6 10x3/uL (0.0-1.1); #Neutrophils 6.4 10x3/uL (1.5-8.4); %Basophils 0.9 % (0.0-2.0); %Eosinophils 5.4 % (0.0-6.0); %Lymphocytes 16.4 % (18.0-47.0); %Monocytes 6.9 % (0.0-10.0); %Neutrophils 68.4 % (40.0-75.0); Hemoglobin 10.9 g/dL (13.5-17.5); Mean Corpuscular HGB CONC 30.6 g/dL (32.0-36.0); Mean Corpuscular Hemoglobin 28.5 pg (27.0-33.0); Mean Platelet Volume 9.6 fl (7.4-10.4); Platelet Count 267 10x3/uL (150-450); RBC Distribution Width 15.3 % (11.5-14.5); Red Blood Cell (RBC) Count 3.83 10x6/uL (4.32-5.72); White Blood Cell (WBC) Count 9.3 10x3/uL (3.5-10.5)
[2020-09-21] MEDS: Docusate Sodium 100 MG/10 ML UDCUP PO SCH ×2 (04:08→14:12)
[2020-09-21 04:12] LABS: Anion Gap 9 mmol/L (10-20); BUN (Urea Nitrogen) 13 mg/dL (8.4-25.7); Calc. Creatinine Clearance 162 mL/min (70-130); Carbon Dioxide 37 mmol/L (22-29); Chloride 96 mmol/L (98-107); Glucose 146 mg/dL (70-105); Potassium 4.3 mmol/L (3.5-5.1); Sodium 138 mmol/L (136-145)
[2020-09-21] MEDS: Mag-Al Plus 1200 MG/1200 MG/120 MG/30 ML UDCUP PO PRN (04:19)
[2020-09-21] MEDS: Ivabradine 5 MG TAB PO SCH ×2 (04:19→16:33)
[2020-09-21] MEDS: GUAIFENESIN SF SOLN 200 MG/10 ML UDCUP PO SCH ×4 (06:00→23:46)
[2020-09-21] MEDS: Budesonide 0.5 MG/2 ML NEB NEB SCH ×2 (07:00→19:51)
[2020-09-21] MEDS: Polyethylene Glycol 3350 17 GM Packet PER TUBE SCH (07:58)
[2020-09-21] MEDS: Magnesium Oxide 400 MG TAB PO SCH (07:58)
[2020-09-21] MEDS: Pantoprazole 40 MG VIAL IVP SCH ×2 (07:59→21:36)
[2020-09-21] MEDS: Potassium Chloride 20 MEQ TAB PER TUBE SCH (07:59)
[2020-09-21] MEDS: Cholecalciferol (Vitamin D3) 400 UNITS TAB PO SCH (07:59)
[2020-09-21] MEDS: clonazePAM 0.5 MG TAB PO SCH ×3 (07:59→21:36)
[2020-09-21] MEDS: Metoprolol Tartrate 25 MG TAB PO SCH ×2 (07:59→21:36)
[2020-09-21] MEDS: Lantus 1000 UNITS/10 ML VIAL SC SCH ×2 (08:00→21:36)
[2020-09-21] MEDS: Acetaminophen 325 MG TAB PO PRN (14:14)
[2020-09-21] MEDS: Enoxaparin Sodium 40 MG/0.4 ML SYRINGE SC SCH (21:36)
[2020-09-21] MEDS: Tamsulosin HCl 0.4 MG CAP PO SCH (21:36)
[2020-09-22] MEDS: Docusate Sodium 100 MG/10 ML UDCUP PO SCH ×3 (00:09→23:33)
[2020-09-22 04:24] LABS: #Basophils 0.1 10x3/uL (0.0-0.2); #Eosinphils 0.5 10x3/uL (0.0-0.5); #Monocytes 0.6 10x3/uL (0.0-1.1); #Neutrophils 5.4 10x3/uL (1.5-8.4); %Basophils 0.9 % (0.0-2.0); %Eosinophils 5.6 % (0.0-6.0); %Lymphocytes 16.8 % (18.0-47.0); %Monocytes 6.9 % (0.0-10.0); %Neutrophils 67.8 % (40.0-75.0); Hemoglobin 10.5 g/dL (13.5-17.5); Mean Corpuscular HGB CONC 30.6 g/dL (32.0-36.0); Mean Corpuscular Hemoglobin 28.8 pg (27.0-33.0); Mean Platelet Volume 9.8 fl (7.4-10.4); Platelet Count 263 10x3/uL (150-450); RBC Distribution Width 14.9 % (11.5-14.5); Red Blood Cell (RBC) Count 3.65 10x6/uL (4.32-5.72)
[2020-09-22] MEDS: Insulin Regular 300 UNITS/3 ML VIAL SC PRN (04:32)
[2020-09-22 04:49] LABS: BUN (Urea Nitrogen) 11 mg/dL (8.4-25.7); Calc. Creatinine Clearance 168 mL/min (70-130); Calcium 9.1 mg/dL (7.8-10.44); Glucose 153 mg/dL (70-105)
[2020-09-22 04:57] LABS: Anion Gap 13 mmol/L (10-20); Carbon Dioxide 35 mmol/L (22-29); Chloride 96 mmol/L (98-107); Potassium 4.7 mmol/L (3.5-5.1); Sodium 139 mmol/L (136-145)
[2020-09-22] MEDS: GUAIFENESIN SF SOLN 200 MG/10 ML UDCUP PO SCH ×4 (05:22→23:55)
[2020-09-22] MEDS: Ivabradine 5 MG TAB PO SCH ×2 (05:22→16:18)
[2020-09-22] MEDS: Budesonide 0.5 MG/2 ML NEB NEB SCH ×2 (07:52→19:40)
[2020-09-22] MEDS: Magnesium Oxide 400 MG TAB PO SCH (08:07)
[2020-09-22] MEDS: Potassium Chloride 20 MEQ TAB PER TUBE SCH (08:07)
[2020-09-22] MEDS: Polyethylene Glycol 3350 17 GM Packet PER TUBE SCH (08:07)
[2020-09-22] MEDS: Lantus 1000 UNITS/10 ML VIAL SC SCH ×2 (08:08→20:50)
[2020-09-22] MEDS: Cholecalciferol (Vitamin D3) 400 UNITS TAB PO SCH (08:08)
[2020-09-22] MEDS: Pantoprazole 40 MG VIAL IVP SCH ×2 (08:08→20:50)
[2020-09-22] MEDS: Metoprolol Tartrate 25 MG TAB PO SCH ×2 (08:08→20:50)
[2020-09-22] MEDS: clonazePAM 0.5 MG TAB PO SCH ×3 (08:08→20:49)
[2020-09-22] MEDS: Scopolamine 1.5 mg/72 hour Patch TD SCH (10:18)
[2020-09-22] MEDS: Acetaminophen 325 MG TAB PO PRN ×2 (12:35→20:49)
[2020-09-22] MEDS: Ondansetron ODT 4 MG TAB PO PRN (13:55)
[2020-09-22] MEDS: Enoxaparin Sodium 40 MG/0.4 ML SYRINGE SC SCH (20:50)
[2020-09-22] MEDS: Tamsulosin HCl 0.4 MG CAP PO SCH (20:51)
[2020-09-23 04:36] LABS: #Basophils 0.1 10x3/uL (0.0-0.2); #Eosinphils 0.4 10x3/uL (0.0-0.5); #Monocytes 0.7 10x3/uL (0.0-1.1); #Neutrophils 5.4 10x3/uL (1.5-8.4); %Basophils 0.8 % (0.0-2.0); %Eosinophils 5.2 % (0.0-6.0); %Lymphocytes 19.2 % (18.0-47.0); %Neutrophils 65.6 % (40.0-75.0); Mean Corpuscular HGB CONC 30.2 g/dL (32.0-36.0); Mean Corpuscular Hemoglobin 28.6 pg (27.0-33.0); Mean Corpuscular Volume 94.5 fl (81.2-95.1); Mean Platelet Volume 9.6 fl (7.4-10.4); Platelet Count 273 10x3/uL (150-450); Red Blood Cell (RBC) Count 3.85 10x6/uL (4.32-5.72); White Blood Cell (WBC) Count 8.2 10x3/uL (3.5-10.5)
[2020-09-23 04:47] LABS: BUN (Urea Nitrogen) 9 mg/dL (8.4-25.7); Calc. Creatinine Clearance 156 mL/min (70-130); Calcium 9.3 mg/dL (7.8-10.44); Glucose 122 mg/dL (70-105)
[2020-09-23 04:54] LABS: Anion Gap 14 mmol/L (10-20); Carbon Dioxide 36 mmol/L (22-29); Chloride 95 mmol/L (98-107); Potassium 4.5 mmol/L (3.5-5.1); Sodium 140 mmol/L (136-145)
[2020-09-23] MEDS: GUAIFENESIN SF SOLN 200 MG/10 ML UDCUP PO SCH ×3 (05:03→17:18)
[2020-09-23] MEDS: Ivabradine 5 MG TAB PO SCH ×2 (05:03→17:19)
[2020-09-23] MEDS: Acetaminophen 325 MG TAB PO PRN ×3 (05:44→22:34)
[2020-09-23] MEDS: Budesonide 0.5 MG/2 ML NEB NEB SCH ×2 (08:04→20:31)
[2020-09-23] MEDS: Metoprolol Tartrate 25 MG TAB PO SCH ×2 (08:21→21:09)
[2020-09-23] MEDS: Pantoprazole 40 MG VIAL IVP SCH ×2 (08:21→21:15)
[2020-09-23] MEDS: Magnesium Oxide 400 MG TAB PO SCH (08:21)
[2020-09-23] MEDS: clonazePAM 0.5 MG TAB PO SCH ×3 (08:21→21:08)
[2020-09-23] MEDS: Potassium Chloride 20 MEQ TAB PER TUBE SCH (08:21)
[2020-09-23] MEDS: Cholecalciferol (Vitamin D3) 400 UNITS TAB PO SCH (08:23)
[2020-09-23] MEDS: Polyethylene Glycol 3350 17 GM Packet PER TUBE SCH (08:23)
[2020-09-23] MEDS: Lantus 1000 UNITS/10 ML VIAL SC SCH ×2 (08:23→21:09)
[2020-09-23] MEDS: Ondansetron PF 4 MG/2 ML Vial IVP PRN (12:18)
[2020-09-23] MEDS: ALPRAZolam 0.25 MG TAB PO PRN ×2 (12:18→22:34)
[2020-09-23] MEDS: Mag-Al Plus 1200 MG/1200 MG/120 MG/30 ML UDCUP PO PRN (13:01)
[2020-09-23] MEDS: Docusate Sodium 100 MG/10 ML UDCUP PO SCH (14:15)
[2020-09-23] MEDS: Enoxaparin Sodium 40 MG/0.4 ML SYRINGE SC SCH (21:08)
[2020-09-23] MEDS: Tamsulosin HCl 0.4 MG CAP PO SCH (21:09)
[2020-09-24 04:21] LABS: #Basophils 0.1 10x3/uL (0.0-0.2); #Eosinphils 0.2 10x3/uL (0.0-0.5); #Monocytes 0.7 10x3/uL (0.0-1.1); #Neutrophils 6.7 10x3/uL (1.5-8.4); %Basophils 0.5 % (0.0-2.0); %Eosinophils 2.6 % (0.0-6.0); %Lymphocytes 15.8 % (18.0-47.0); %Monocytes 7.1 % (0.0-10.0); %Neutrophils 72.9 % (40.0-75.0); Mean Corpuscular HGB CONC 30.1 g/dL (32.0-36.0); Mean Corpuscular Hemoglobin 28.6 pg (27.0-33.0); Mean Corpuscular Volume 95.1 fl (81.2-95.1); Mean Platelet Volume 9.9 fl (7.4-10.4); Platelet Count 280 10x3/uL (150-450); RBC Distribution Width 14.8 % (11.5-14.5); Red Blood Cell (RBC) Count 3.84 10x6/uL (4.32-5.72); White Blood Cell (WBC) Count 9.3 10x3/uL (3.5-10.5)
[2020-09-24 04:32] LABS: BUN (Urea Nitrogen) 8 mg/dL (8.4-25.7); Calc. Creatinine Clearance 156 mL/min (70-130); Glucose 178 mg/dL (70-105)
[2020-09-24 04:40] LABS: Anion Gap 14 mmol/L (10-20); Carbon Dioxide 39 mmol/L (22-29); Chloride 93 mmol/L (98-107); Potassium 5.5 mmol/L (3.5-5.1); Sodium 140 mmol/L (136-145)
[2020-09-24] MEDS: GUAIFENESIN SF SOLN 200 MG/10 ML UDCUP PO SCH ×4 (05:48→17:23)
[2020-09-24] MEDS: Docusate Sodium 100 MG/10 ML UDCUP PO SCH ×2 (05:49→15:39)
[2020-09-24] MEDS: Acetaminophen 325 MG TAB PO PRN ×2 (05:59→17:41)
[2020-09-24] MEDS: Ivabradine 5 MG TAB PO SCH ×2 (06:00→17:23)
[2020-09-24] MEDS: Insulin Regular 300 UNITS/3 ML VIAL SC PRN ×3 (06:00→17:25)
[2020-09-24] MEDS: Budesonide 0.5 MG/2 ML NEB NEB SCH ×2 (08:47→20:06)
[2020-09-24] MEDS: Metoprolol Tartrate 25 MG TAB PO SCH ×2 (09:08→21:05)
[2020-09-24] MEDS: Cholecalciferol (Vitamin D3) 400 UNITS TAB PO SCH (09:08)
[2020-09-24] MEDS: Lantus 1000 UNITS/10 ML VIAL SC SCH ×2 (09:08→21:30)
[2020-09-24] MEDS: clonazePAM 0.5 MG TAB PO SCH ×3 (09:08→21:03)
[2020-09-24] MEDS: Magnesium Oxide 400 MG TAB PO SCH (09:08)
[2020-09-24] MEDS: Pantoprazole 40 MG VIAL IVP SCH ×2 (09:08→21:30)
[2020-09-24] MEDS: Polyethylene Glycol 3350 17 GM Packet PER TUBE SCH (12:26)
[2020-09-24] MEDS: oxyCODONE 5 MG TAB PER TUBE PRN ×2 (14:13→21:02)
[2020-09-24] MEDS: ALPRAZolam 0.25 MG TAB PO PRN (14:14)
[2020-09-24] MEDS: Enoxaparin Sodium 40 MG/0.4 ML SYRINGE SC SCH (21:03)
[2020-09-24] MEDS: Tamsulosin HCl 0.4 MG CAP PO SCH (21:06)
[2020-09-25] MEDS: Insulin Regular 300 UNITS/3 ML VIAL SC PRN ×3 (00:08→17:48)
[2020-09-25] MEDS: GUAIFENESIN SF SOLN 200 MG/10 ML UDCUP PO SCH ×4 (00:08→17:42)
[2020-09-25] MEDS: Ondansetron PF 4 MG/2 ML Vial IVP PRN ×2 (02:10→21:48)
[2020-09-25 04:41] LABS: #Basophils 0.1 10x3/uL (0.0-0.2); #Eosinphils 0.1 10x3/uL (0.0-0.5); #Monocytes 0.7 10x3/uL (0.0-1.1); #Neutrophils 9.4 10x3/uL (1.5-8.4); %Basophils 0.6 % (0.0-2.0); %Eosinophils 0.6 % (0.0-6.0); %Lymphocytes 10.6 % (18.0-47.0); %Monocytes 6.3 % (0.0-10.0); Hemoglobin 11.2 g/dL (13.5-17.5); Mean Corpuscular HGB CONC 29.7 g/dL (32.0-36.0); Mean Corpuscular Hemoglobin 28.4 pg (27.0-33.0); Mean Corpuscular Volume 95.7 fl (81.2-95.1); Mean Platelet Volume 9.4 fl (7.4-10.4); Platelet Count 303 10x3/uL (150-450); RBC Distribution Width 14.3 % (11.5-14.5); Red Blood Cell (RBC) Count 3.94 10x6/uL (4.32-5.72); White Blood Cell (WBC) Count 11.7 10x3/uL (3.5-10.5)
[2020-09-25] MEDS: Docusate Sodium 100 MG/10 ML UDCUP PO SCH ×2 (04:49→14:30)
[2020-09-25 04:54] LABS: BUN (Urea Nitrogen) 8 mg/dL (8.4-25.7); Calc. Creatinine Clearance 142 mL/min (70-130); Calcium 8.9 mg/dL (7.8-10.44); Glucose 216 mg/dL (70-105)
[2020-09-25 05:02] LABS: Anion Gap 15 mmol/L (10-20); Chloride 86 mmol/L (98-107); Potassium 4.9 mmol/L (3.5-5.1); Sodium 138 mmol/L (136-145)
[2020-09-25 05:09] LABS: Carbon Dioxide 42 mmol/L (22-29)
[2020-09-25] MEDS: Ivabradine 5 MG TAB PO SCH ×2 (05:29→17:42)
[2020-09-25] MEDS: ALPRAZolam 0.25 MG TAB PO PRN (05:30)
[2020-09-25] MEDS: Magnesium Oxide 400 MG TAB PO SCH (09:11)
[2020-09-25] MEDS: Cholecalciferol (Vitamin D3) 400 UNITS TAB PO SCH (09:11)
[2020-09-25] MEDS: Metoprolol Tartrate 25 MG TAB PO SCH ×2 (09:11→21:17)
[2020-09-25] MEDS: clonazePAM 0.5 MG TAB PO SCH ×2 (09:11→21:15)
[2020-09-25] MEDS: Pantoprazole 40 MG VIAL IVP SCH ×2 (09:11→21:19)
[2020-09-25] MEDS: Lantus 1000 UNITS/10 ML VIAL SC SCH ×2 (09:12→21:30)
[2020-09-25] MEDS: oxyCODONE 5 MG TAB PER TUBE PRN (09:15)
[2020-09-25] MEDS: Budesonide 0.5 MG/2 ML NEB NEB SCH ×2 (09:21→19:16)
[2020-09-25] MEDS: Polyethylene Glycol 3350 17 GM Packet PER TUBE SCH (10:16)
[2020-09-25] MEDS ORDERED: Fentanyl 100 MCG/2 ML VIAL SLOW IVP SCH (12:45)
[2020-09-25] MEDS: Scopolamine 1.5 mg/72 hour Patch TD SCH (12:51)
[2020-09-25 13:44] LABS: ALV-art Gradient 144.335 mmHg (0-20); Base Excess (BEa) 16.1 mEq/L (-2.0 to +3.0); CO2 Tension 128.5 mmHg (35.0-45.0); Calcium, Ionized (arterial) 1.19 mmol/L (1.12-1.30); Carboxyhemoglobin (COHb) 1.9 gm% (0.0-3.0); Hemoglobin (Hb) 11.8 g/dL (14.0-18.0); O2 Tension (PaO2), arterial 65.8 mmHg (80.0-100.0); Potassium - ABG Lab 4.8 mmol/L (3.70-5.30); Puncture Site RRA
[2020-09-25 13:58] LABS: Actual Bicarbonate (HCO3a) 46.8 mEq/L (22-28); Base Excess (BEa) 19.7 mEq/L (-2.0 to +3.0); Calcium, Ionized (arterial) 1.11 mmol/L (1.12-1.30); Carboxyhemoglobin (COHb) 1.4 gm% (0.0-3.0); Hemoglobin (Hb) 11.1 g/dL (14.0-18.0); O2 Tension (PaO2), arterial 147.6 mmHg (80.0-100.0); Puncture Site RRA; pH, Arterial 7.46 (7.35-7.45)
[2020-09-25] MEDS: Enoxaparin Sodium 40 MG/0.4 ML SYRINGE SC SCH (21:15)
[2020-09-25] MEDS: Simethicone Chewable 80 MG TAB PO PRN (21:20)
[2020-09-25] MEDS: Tamsulosin HCl 0.4 MG CAP PO SCH (21:20)
[2020-09-26] MEDS: GUAIFENESIN SF SOLN 200 MG/10 ML UDCUP PO SCH ×4 (00:30→17:07)
[2020-09-26] MEDS: Docusate Sodium 100 MG/10 ML UDCUP PO SCH ×2 (02:15→17:09)
[2020-09-26 04:02] LABS: #Eosinphils 0.3 10x3/uL (0.0-0.5); #Monocytes 0.9 10x3/uL (0.0-1.1); #Neutrophils 8.3 10x3/uL (1.5-8.4); %Basophils 0.4 % (0.0-2.0); %Eosinophils 2.5 % (0.0-6.0); %Lymphocytes 14.8 % (18.0-47.0); %Neutrophils 72.8 % (40.0-75.0); Mean Corpuscular HGB CONC 31.1 g/dL (32.0-36.0); Mean Corpuscular Hemoglobin 28.3 pg (27.0-33.0); Mean Corpuscular Volume 91.2 fl (81.2-95.1); Platelet Count 272 10x3/uL (150-450); RBC Distribution Width 14.9 % (11.5-14.5); Red Blood Cell (RBC) Count 3.53 10x6/uL (4.32-5.72); White Blood Cell (WBC) Count 11.3 10x3/uL (3.5-10.5)
[2020-09-26 04:23] LABS: ALT (SGPT) 25 U/L (8-55); AST (SGOT) 18 U/L (5-34); Alkaline Phosphatase 111 U/L (40-110); BUN (Urea Nitrogen) 19 mg/dL (8.4-25.7); Bilirubin, Total 0.3 mg/dL (0.2-1.2); Calc. Creatinine Clearance 142 mL/min (70-130); Calcium 8.3 mg/dL (7.8-10.44); Globulin 3.5 g/dL (2.4-3.5); Glucose 185 mg/dL (70-105); Magnesium 1.8 mg/dL (1.6-2.6); Protein, Total 6.5 g/dL (6.0-8.3)
[2020-09-26 04:26] LABS: Phosphorus 1.4 mg/dL (2.3-4.7)
[2020-09-26 04:30] LABS: Anion Gap 15 mmol/L (10-20); Carbon Dioxide 37 mmol/L (22-29); Chloride 86 mmol/L (98-107); Sodium 134 mmol/L (136-145)
[2020-09-26] MEDS: Ivabradine 5 MG TAB PO SCH ×2 (05:05→17:07)
[2020-09-26] MEDS ORDERED: PHOS-NAK 1 PKT PACK PO SCH (05:30)
[2020-09-26] MEDS: Budesonide 0.5 MG/2 ML NEB NEB SCH ×2 (07:29→19:02)
[2020-09-26] MEDS: oxyCODONE 5 MG TAB PER TUBE PRN ×2 (08:01→12:55)
[2020-09-26] MEDS: Metoprolol Tartrate 25 MG TAB PO SCH ×2 (08:01→20:12)
[2020-09-26] MEDS: Magnesium Oxide 400 MG TAB PO SCH (08:01)
[2020-09-26] MEDS: Pantoprazole 40 MG VIAL IVP SCH ×2 (08:02→20:13)
[2020-09-26] MEDS: Cholecalciferol (Vitamin D3) 400 UNITS TAB PO SCH (08:02)
[2020-09-26] MEDS: Polyethylene Glycol 3350 17 GM Packet PER TUBE SCH (08:02)
[2020-09-26] MEDS: ALPRAZolam 0.25 MG TAB PO PRN ×2 (08:02→16:07)
[2020-09-26] MEDS: Lantus 1000 UNITS/10 ML VIAL SC SCH ×2 (08:03→21:35)
[2020-09-26] MEDS: clonazePAM 0.5 MG TAB PO SCH ×3 (08:04→20:11)
[2020-09-26] MEDS: Acetaminophen 325 MG TAB PO PRN (09:21)
[2020-09-26] MEDS ORDERED: Simethicone 40 MG/0.6 ML Drop 30 ML BOT PO PRN (10:30)
[2020-09-26] MEDS: Insulin Regular 300 UNITS/3 ML VIAL SC PRN (10:54)
[2020-09-26] MEDS: Simethicone 40 MG/0.6 ML Drop 30 ML BOT PO SCH ×2 (12:51→20:15)
[2020-09-26] MEDS ORDERED: Morphine 4 MG/ML VIAL SLOW IVP SCH (16:45)
[2020-09-26] MEDS ORDERED: Dicyclomine 20 MG TAB PO SCH (16:45)
[2020-09-26] MEDS: Enoxaparin Sodium 40 MG/0.4 ML SYRINGE SC SCH (20:11)
[2020-09-26] MEDS: Tamsulosin HCl 0.4 MG CAP PO SCH (20:19)
[2020-09-27] MEDS: GUAIFENESIN SF SOLN 200 MG/10 ML UDCUP PO SCH ×4 (00:25→17:05)
[2020-09-27 04:25] LABS: #Eosinphils 0.1 10x3/uL (0.0-0.5); #Monocytes 1.1 10x3/uL (0.0-1.1); %Basophils 0.2 % (0.0-2.0); %Eosinophils 0.3 % (0.0-6.0); %Monocytes 6.7 % (0.0-10.0); %Neutrophils 84.9 % (40.0-75.0); Hemoglobin 10.8 g/dL (13.5-17.5); Mean Corpuscular HGB CONC 32.2 g/dL (32.0-36.0); Mean Corpuscular Hemoglobin 28.9 pg (27.0-33.0); Mean Corpuscular Volume 89.6 fl (81.2-95.1); Mean Platelet Volume 9.5 fl (7.4-10.4); Platelet Count 262 10x3/uL (150-450); RBC Distribution Width 14.9 % (11.5-14.5); Red Blood Cell (RBC) Count 3.74 10x6/uL (4.32-5.72); White Blood Cell (WBC) Count 16.5 10x3/uL (3.5-10.5)
[2020-09-27 04:31] LABS: Globulin 3.7 g/dL (2.4-3.5)
[2020-09-27 04:38] LABS: Anion Gap 14 mmol/L (10-20); Carbon Dioxide 36 mmol/L (22-29); Chloride 86 mmol/L (98-107); Potassium 3.4 mmol/L (3.5-5.1); Sodium 133 mmol/L (136-145)
[2020-09-27 04:47] LABS: ALT (SGPT) 54 U/L (8-55); AST (SGOT) 44 U/L (5-34); Albumin 3.3 g/dL (3.5-5.0); Alkaline Phosphatase 175 U/L (40-110); BUN (Urea Nitrogen) 6 mg/dL (8.4-25.7); Bilirubin, Total 0.6 mg/dL (0.2-1.2); Calc. Creatinine Clearance 158 mL/min (70-130); Calcium 8.9 mg/dL (7.8-10.44); Glucose 169 mg/dL (70-105); Lipase 10 U/L (8-78)
[2020-09-27] MEDS: Docusate Sodium 100 MG/10 ML UDCUP PO SCH ×2 (04:59→13:52)
[2020-09-27] MEDS: Ivabradine 5 MG TAB PO SCH ×2 (05:22→16:42)
[2020-09-27] MEDS: Budesonide 0.5 MG/2 ML NEB NEB SCH ×2 (07:25→19:18)
[2020-09-27] MEDS: Cholecalciferol (Vitamin D3) 400 UNITS TAB PO SCH (08:04)
[2020-09-27] MEDS: Simethicone 40 MG/0.6 ML Drop 30 ML BOT PO SCH ×3 (08:04→20:51)
[2020-09-27] MEDS: Magnesium Oxide 400 MG TAB PO SCH (08:04)
[2020-09-27] MEDS: Metoprolol Tartrate 25 MG TAB PO SCH ×2 (08:04→20:48)
[2020-09-27] MEDS: Polyethylene Glycol 3350 17 GM Packet PER TUBE SCH (08:04)
[2020-09-27] MEDS: Pantoprazole 40 MG VIAL IVP SCH ×2 (08:04→20:51)
[2020-09-27] MEDS: clonazePAM 0.5 MG TAB PO SCH ×3 (08:04→20:47)
[2020-09-27] MEDS: Lantus 1000 UNITS/10 ML VIAL SC SCH ×2 (08:07→21:25)
[2020-09-27 10:04] LABS: Actual Bicarbonate (HCO3a) 37.8 mEq/L (22-28); Base Excess (BEa) 12.4 mEq/L (-2.0 to +3.0); CO2 Tension 53.1 mmHg (35.0-45.0); Calcium, Ionized (arterial) 1.12 mmol/L (1.12-1.30); Carboxyhemoglobin (COHb) 0.7 gm% (0.0-3.0); O2 Tension (PaO2), arterial 93.3 mmHg (80.0-100.0); Potassium - ABG Lab 3.5 mmol/L (3.70-5.30); Puncture Site RBA; RapidComm Collect By EA; pH, Arterial 7.47 (7.35-7.45)
[2020-09-27 10:06] LABS: ALV-art Gradient 125.525 mmHg (0-20)
[2020-09-27] MEDS: Morphine 4 MG/ML VIAL SLOW IVP PRN ×3 (12:20→21:26)
[2020-09-27] MEDS: Enoxaparin Sodium 40 MG/0.4 ML SYRINGE SC SCH (20:47)
[2020-09-27] MEDS: Tamsulosin HCl 0.4 MG CAP PO SCH (20:52)
[2020-09-28] MEDS: GUAIFENESIN SF SOLN 200 MG/10 ML UDCUP PO SCH ×4 (00:59→17:00)
[2020-09-28 04:16] LABS: #Eosinphils 0.2 10x3/uL (0.0-0.5); #Neutrophils 12.8 10x3/uL (1.5-8.4); %Basophils 0.2 % (0.0-2.0); %Eosinophils 1.2 % (0.0-6.0); %Lymphocytes 13.1 % (18.0-47.0); %Monocytes 6.1 % (0.0-10.0); %Neutrophils 78.6 % (40.0-75.0); Hemoglobin 9.4 g/dL (13.5-17.5); Mean Corpuscular HGB CONC 32.2 g/dL (32.0-36.0); Mean Corpuscular Hemoglobin 28.7 pg (27.0-33.0); Mean Corpuscular Volume 89.3 fl (81.2-95.1); Mean Platelet Volume 9.3 fl (7.4-10.4); Platelet Count 261 10x3/uL (150-450); RBC Distribution Width 15.1 % (11.5-14.5); Red Blood Cell (RBC) Count 3.27 10x6/uL (4.32-5.72); White Blood Cell (WBC) Count 16.4 10x3/uL (3.5-10.5)
[2020-09-28 04:25] LABS: ALT (SGPT) 39 U/L (8-55); AST (SGOT) 21 U/L (5-34); Albumin 2.9 g/dL (3.5-5.0); Alkaline Phosphatase 147 U/L (40-110); Anion Gap 15 mmol/L (10-20); BUN (Urea Nitrogen) 9 mg/dL (8.4-25.7); Bilirubin, Total 0.7 mg/dL (0.2-1.2); Calc. Creatinine Clearance 170 mL/min (70-130); Calcium 8.6 mg/dL (7.8-10.44); Carbon Dioxide 34 mmol/L (22-29); Chloride 88 mmol/L (98-107); Globulin 3.7 g/dL (2.4-3.5); Glucose 98 mg/dL (70-105); Potassium 3.2 mmol/L (3.5-5.1); Protein, Total 6.6 g/dL (6.0-8.3); Sodium 134 mmol/L (136-145)
[2020-09-28] MEDS: Docusate Sodium 100 MG/10 ML UDCUP PO SCH ×3 (04:48→13:26)
[2020-09-28] MEDS: Ivabradine 5 MG TAB PO SCH ×2 (05:27→16:59)
[2020-09-28] MEDS: oxyCODONE 5 MG TAB PER TUBE PRN ×3 (05:29→21:25)
[2020-09-28] MEDS: Budesonide 0.5 MG/2 ML NEB NEB SCH ×2 (08:50→19:35)
[2020-09-28] MEDS: Pantoprazole 40 MG VIAL IVP SCH ×2 (09:02→20:54)
[2020-09-28] MEDS: Simethicone 40 MG/0.6 ML Drop 30 ML BOT PO SCH ×3 (09:02→20:59)
[2020-09-28] MEDS: Cholecalciferol (Vitamin D3) 400 UNITS TAB PO SCH (09:03)
[2020-09-28] MEDS: Magnesium Oxide 400 MG TAB PO SCH (09:03)
[2020-09-28] MEDS: clonazePAM 0.5 MG TAB PO SCH ×3 (09:03→20:54)
[2020-09-28] MEDS: Metoprolol Tartrate 25 MG TAB PO SCH ×3 (09:03→20:53)
[2020-09-28] MEDS: Lantus 1000 UNITS/10 ML VIAL SC SCH ×2 (09:28→21:02)
[2020-09-28] MEDS: Polyethylene Glycol 3350 17 GM Packet PER TUBE SCH (09:29)
[2020-09-28] MEDS ORDERED: Acetaminophen 325 MG TAB PO PRN (10:31)
[2020-09-28] MEDS: Scopolamine 1.5 mg/72 hour Patch TD SCH (10:34)
[2020-09-28] MEDS: Tamsulosin HCl 0.4 MG CAP PO SCH (20:53)
[2020-09-28] MEDS: Enoxaparin Sodium 40 MG/0.4 ML SYRINGE SC SCH (20:54)
[2020-09-29] MEDS: GUAIFENESIN SF SOLN 200 MG/10 ML UDCUP PO SCH ×4 (00:18→16:56)
[2020-09-29] MEDS: Docusate Sodium 100 MG/10 ML UDCUP PO SCH ×2 (02:22→15:17)
[2020-09-29] MEDS: Ivabradine 5 MG TAB PO SCH ×2 (05:42→16:56)
[2020-09-29] MEDS: Budesonide 0.5 MG/2 ML NEB NEB SCH ×2 (07:53→19:31)
[2020-09-29] MEDS: oxyCODONE 5 MG TAB PER TUBE PRN (08:22)
[2020-09-29] MEDS: Metoprolol Tartrate 25 MG TAB PO SCH ×2 (08:22→21:05)
[2020-09-29] MEDS: Magnesium Oxide 400 MG TAB PO SCH (08:22)
[2020-09-29] MEDS: clonazePAM 0.5 MG TAB PO SCH ×3 (08:22→21:06)
[2020-09-29] MEDS: Polyethylene Glycol 3350 17 GM Packet PER TUBE SCH (08:22)
[2020-09-29] MEDS: Cholecalciferol (Vitamin D3) 400 UNITS TAB PO SCH (08:23)
[2020-09-29] MEDS: Lantus 1000 UNITS/10 ML VIAL SC SCH ×2 (08:24→21:06)
[2020-09-29] MEDS: Pantoprazole 40 MG VIAL IVP SCH ×2 (08:24→21:06)
[2020-09-29] MEDS: Simethicone 40 MG/0.6 ML Drop 30 ML BOT PO SCH ×3 (08:25→21:10)
[2020-09-29] MEDS: Insulin Regular 300 UNITS/3 ML VIAL SC PRN ×2 (13:12→17:10)
[2020-09-29] MEDS: Enoxaparin Sodium 40 MG/0.4 ML SYRINGE SC SCH (21:06)
[2020-09-29] MEDS: Tamsulosin HCl 0.4 MG CAP PO SCH (21:09)
[2020-09-30] MEDS: Docusate Sodium 100 MG/10 ML UDCUP PO SCH ×3 (01:22→22:28)
[2020-09-30] MEDS: GUAIFENESIN SF SOLN 200 MG/10 ML UDCUP PO SCH ×5 (01:22→22:31)
[2020-09-30 04:33] LABS: #Eosinphils 0.5 10x3/uL (0.0-0.5); #Monocytes 0.8 10x3/uL (0.0-1.1); %Basophils 0.4 % (0.0-2.0); %Eosinophils 5.9 % (0.0-6.0); %Lymphocytes 17.2 % (18.0-47.0); %Neutrophils 66.8 % (40.0-75.0); Hemoglobin 8.9 g/dL (13.5-17.5); Mean Corpuscular HGB CONC 31.4 g/dL (32.0-36.0); Mean Corpuscular Hemoglobin 28.2 pg (27.0-33.0); Mean Corpuscular Volume 89.6 fl (81.2-95.1); Mean Platelet Volume 9.6 fl (7.4-10.4); Platelet Count 297 10x3/uL (150-450); RBC Distribution Width 15.1 % (11.5-14.5); Red Blood Cell (RBC) Count 3.16 10x6/uL (4.32-5.72); White Blood Cell (WBC) Count 8.9 10x3/uL (3.5-10.5)
[2020-09-30 04:58] LABS: ALT (SGPT) 34 U/L (8-55); AST (SGOT) 19 U/L (5-34); Albumin 2.9 g/dL (3.5-5.0); Alkaline Phosphatase 207 U/L (40-110); BUN (Urea Nitrogen) 6 mg/dL (8.4-25.7); Bilirubin, Total 0.4 mg/dL (0.2-1.2); Calc. Creatinine Clearance 175 mL/min (70-130); Calcium 8.6 mg/dL (7.8-10.44); Globulin 3.6 g/dL (2.4-3.5); Glucose 102 mg/dL (70-105); Magnesium 1.8 mg/dL (1.6-2.6); Phosphorus 3.8 mg/dL (2.3-4.7); Protein, Total 6.5 g/dL (6.0-8.3)
[2020-09-30 05:06] LABS: Anion Gap 13 mmol/L (10-20); Carbon Dioxide 36 mmol/L (22-29); Chloride 91 mmol/L (98-107); Potassium 3.4 mmol/L (3.5-5.1); Sodium 137 mmol/L (136-145)
[2020-09-30] MEDS: Ivabradine 5 MG TAB PO SCH ×2 (06:05→16:36)
[2020-09-30] MEDS: Budesonide 0.5 MG/2 ML NEB NEB SCH ×2 (07:30→18:38)
[2020-09-30] MEDS: Lantus 1000 UNITS/10 ML VIAL SC SCH ×2 (08:29→22:29)
[2020-09-30] MEDS: Magnesium Oxide 400 MG TAB PO SCH (08:30)
[2020-09-30] MEDS: Polyethylene Glycol 3350 17 GM Packet PER TUBE SCH (08:30)
[2020-09-30] MEDS: Simethicone 40 MG/0.6 ML Drop 30 ML BOT PO SCH ×3 (08:30→21:30)
[2020-09-30] MEDS ORDERED: Potassium Chloride 20 MEQ TAB PO SCH ×2 (08:30→11:15)
[2020-09-30] MEDS: Pantoprazole 40 MG VIAL IVP SCH ×2 (08:30→21:30)
[2020-09-30] MEDS: clonazePAM 0.5 MG TAB PO SCH ×3 (08:30→21:30)
[2020-09-30] MEDS: Cholecalciferol (Vitamin D3) 400 UNITS TAB PO SCH (08:30)
[2020-09-30] MEDS: Metoprolol Tartrate 25 MG TAB PO SCH ×2 (08:30→21:30)
[2020-09-30] MEDS: Insulin Regular 300 UNITS/3 ML VIAL SC PRN (10:52)
[2020-09-30] MEDS: Acetaminophen 325 MG TAB PO PRN (17:00)
[2020-09-30 19:48] LABS: HIV (1/2) Antibody/Antigen Non-Reactive (NonReactive); HIV 1/2 INDEX 0.14 S/CO (<1.00); Hep B Surf Ag Non-Reactive S/CO (NonReactive)
[2020-09-30] MEDS: Tamsulosin HCl 0.4 MG CAP PO SCH (21:30)
[2020-09-30] MEDS: Enoxaparin Sodium 40 MG/0.4 ML SYRINGE SC SCH (21:30)
[2020-09-30 23:01] LABS: Hep C IgG Ab Non-Reactive (NonReactive); Hep C Index 0.12 S/CO (0-0.79)
[2020-09-30 23:24] LABS: HBSAg Index 0.27 S/CO (0-0.99)
[2020-10-01 04:44] LABS: Anion Gap 13 mmol/L (10-20); BUN (Urea Nitrogen) 8 mg/dL (8.4-25.7); Calc. Creatinine Clearance 165 mL/min (70-130); Calcium 8.7 mg/dL (7.8-10.44); Carbon Dioxide 33 mmol/L (22-29); Chloride 95 mmol/L (98-107); Glucose 118 mg/dL (70-105); Potassium 3.8 mmol/L (3.5-5.1); Sodium 137 mmol/L (136-145)
[2020-10-01 04:50] LABS: #Basophils 0.1 10x3/uL (0.0-0.2); #Eosinphils 0.6 10x3/uL (0.0-0.5); #Monocytes 0.7 10x3/uL (0.0-1.1); #Neutrophils 3.7 10x3/uL (1.5-8.4); %Basophils 0.8 % (0.0-2.0); %Eosinophils 8.9 % (0.0-6.0); %Lymphocytes 23.8 % (18.0-47.0); %Monocytes 10.2 % (0.0-10.0); %Neutrophils 54.8 % (40.0-75.0); Hemoglobin 9.2 g/dL (13.5-17.5); Mean Corpuscular HGB CONC 31.2 g/dL (32.0-36.0); Mean Corpuscular Hemoglobin 28.4 pg (27.0-33.0); Mean Platelet Volume 9.7 fl (7.4-10.4); Platelet Count 344 10x3/uL (150-450); RBC Distribution Width 15.2 % (11.5-14.5); Red Blood Cell (RBC) Count 3.24 10x6/uL (4.32-5.72); White Blood Cell (WBC) Count 6.7 10x3/uL (3.5-10.5)
[2020-10-01] MEDS: Ivabradine 5 MG TAB PO SCH ×2 (04:59→17:19)
[2020-10-01] MEDS: GUAIFENESIN SF SOLN 200 MG/10 ML UDCUP PO SCH ×4 (04:59→23:40)
[2020-10-01] MEDS: Budesonide 0.5 MG/2 ML NEB NEB SCH ×2 (08:01→19:11)
[2020-10-01] MEDS: Magnesium Oxide 400 MG TAB PO SCH (08:35)
[2020-10-01] MEDS: Metoprolol Tartrate 25 MG TAB PO SCH ×2 (08:35→21:30)
[2020-10-01] MEDS: Pantoprazole 40 MG VIAL IVP SCH ×2 (08:35→21:30)
[2020-10-01] MEDS: Docusate Sodium 100 MG/10 ML UDCUP PO SCH ×2 (08:35→23:35)
[2020-10-01] MEDS: Cholecalciferol (Vitamin D3) 400 UNITS TAB PO SCH (08:35)
[2020-10-01] MEDS: clonazePAM 0.5 MG TAB PO SCH ×3 (08:35→21:30)
[2020-10-01] MEDS: Simethicone 40 MG/0.6 ML Drop 30 ML BOT PO SCH ×3 (08:36→21:30)
[2020-10-01] MEDS: Polyethylene Glycol 3350 17 GM Packet PER TUBE SCH (08:36)
[2020-10-01] MEDS: Scopolamine 1.5 mg/72 hour Patch TD SCH (11:12)
[2020-10-01] MEDS ORDERED: Furosemide 20 MG TAB PO SCH (17:00)
[2020-10-01] MEDS: Tamsulosin HCl 0.4 MG CAP PO SCH (21:30)
[2020-10-01] MEDS: Enoxaparin Sodium 40 MG/0.4 ML SYRINGE SC SCH (21:30)
[2020-10-01] MEDS: Lantus 1000 UNITS/10 ML VIAL SC SCH (23:26)
[2020-10-02] MEDS: GUAIFENESIN SF SOLN 200 MG/10 ML UDCUP PO SCH ×4 (04:31→23:29)
[2020-10-02] MEDS: Ivabradine 5 MG TAB PO SCH ×2 (04:31→17:12)
[2020-10-02] MEDS: Budesonide 0.5 MG/2 ML NEB NEB SCH ×2 (07:16→19:50)
[2020-10-02] MEDS: Cholecalciferol (Vitamin D3) 400 UNITS TAB PO SCH (08:19)
[2020-10-02] MEDS: Metoprolol Tartrate 25 MG TAB PO SCH ×2 (08:19→21:30)
[2020-10-02] MEDS: clonazePAM 0.5 MG TAB PO SCH ×3 (08:19→21:30)
[2020-10-02] MEDS: Magnesium Oxide 400 MG TAB PO SCH (08:19)
[2020-10-02] MEDS: Pantoprazole 40 MG VIAL IVP SCH ×2 (08:19→21:30)
[2020-10-02] MEDS: Polyethylene Glycol 3350 17 GM Packet PER TUBE SCH (08:20)
[2020-10-02] MEDS: ALPRAZolam 0.25 MG TAB PO PRN ×2 (08:20→12:43)
[2020-10-02] MEDS: Simethicone 40 MG/0.6 ML Drop 30 ML BOT PO SCH ×3 (08:20→22:03)
[2020-10-02] MEDS: Docusate Sodium 100 MG/10 ML UDCUP PO SCH ×2 (08:20→21:55)
[2020-10-02] MEDS: Lantus 1000 UNITS/10 ML VIAL SC SCH ×3 (09:16→22:01)
[2020-10-02] MEDS: oxyCODONE 5 MG TAB PER TUBE PRN (12:07)
[2020-10-02] MEDS: Lorazepam 2 MG/ML VIAL SLOW IVP PRN (16:15)
[2020-10-02] MEDS: Enoxaparin Sodium 40 MG/0.4 ML SYRINGE SC SCH (21:30)
[2020-10-02] MEDS: Tamsulosin HCl 0.4 MG CAP PO SCH (21:30)
[2020-10-02] MEDS: Insulin Regular 300 UNITS/3 ML VIAL SC PRN (22:00)
[2020-10-03] MEDS: GUAIFENESIN SF SOLN 200 MG/10 ML UDCUP PO SCH ×4 (05:30→23:35)
[2020-10-03] MEDS: Ivabradine 5 MG TAB PO SCH ×2 (05:30→16:27)
[2020-10-03] MEDS: Budesonide 0.5 MG/2 ML NEB NEB SCH ×2 (07:47→19:15)
[2020-10-03] MEDS ORDERED: Pantoprazole 40 MG VIAL ONE (08:24)
[2020-10-03] MEDS: clonazePAM 0.5 MG TAB PO SCH ×3 (08:41→20:44)
[2020-10-03] MEDS: Metoprolol Tartrate 25 MG TAB PO SCH ×2 (08:41→20:44)
[2020-10-03] MEDS: Polyethylene Glycol 3350 17 GM Packet PER TUBE SCH (08:42)
[2020-10-03] MEDS: Docusate Sodium 100 MG/10 ML UDCUP PO SCH ×2 (08:42→20:45)
[2020-10-03] MEDS: Magnesium Oxide 400 MG TAB PO SCH (08:42)
[2020-10-03] MEDS: Cholecalciferol (Vitamin D3) 400 UNITS TAB PO SCH (08:42)
[2020-10-03] MEDS: Pantoprazole 40 MG VIAL IVP SCH ×2 (08:42→20:43)
[2020-10-03] MEDS: Simethicone 40 MG/0.6 ML Drop 30 ML BOT PO SCH ×3 (09:00→20:49)
[2020-10-03] MEDS: Lantus 1000 UNITS/10 ML VIAL SC SCH ×2 (11:53→21:28)
[2020-10-03] MEDS: Tamsulosin HCl 0.4 MG CAP PO SCH (20:44)
[2020-10-03] MEDS: Enoxaparin Sodium 40 MG/0.4 ML SYRINGE SC SCH (20:44)
[2020-10-04] MEDS: Ivabradine 5 MG TAB PO SCH ×2 (05:43→17:16)
[2020-10-04] MEDS: GUAIFENESIN SF SOLN 200 MG/10 ML UDCUP PO SCH ×2 (05:44→12:48)
[2020-10-04] MEDS: Budesonide 0.5 MG/2 ML NEB NEB SCH ×2 (07:39→18:45)
[2020-10-04 08:07] LABS: ALT (SGPT) 24 U/L (8-55); AST (SGOT) 15 U/L (5-34); Alkaline Phosphatase 167 U/L (40-110); Anion Gap 13 mmol/L (10-20); BUN (Urea Nitrogen) 8 mg/dL (8.4-25.7); Bilirubin, Total 0.3 mg/dL (0.2-1.2); Calc. Creatinine Clearance 165 mL/min (70-130); Calcium 8.7 mg/dL (7.8-10.44); Carbon Dioxide 29 mmol/L (22-29); Chloride 99 mmol/L (98-107); Globulin 3.8 g/dL (2.4-3.5); Glucose 150 mg/dL (70-105); Magnesium 1.8 mg/dL (1.6-2.6); Potassium 4.4 mmol/L (3.5-5.1); Protein, Total 6.8 g/dL (6.0-8.3); Sodium 137 mmol/L (136-145)
[2020-10-04 08:40] LABS: #Eosinphils 0.5 10x3/uL (0.0-0.5); #Monocytes 0.6 10x3/uL (0.0-1.1); #Neutrophils 6.7 10x3/uL (1.5-8.4); %Basophils 0.4 % (0.0-2.0); %Eosinophils 5.5 % (0.0-6.0); %Lymphocytes 17.8 % (18.0-47.0); %Monocytes 6.5 % (0.0-10.0); %Neutrophils 68.4 % (40.0-75.0); Hemoglobin 9.3 g/dL (13.5-17.5); Mean Corpuscular HGB CONC 31.2 g/dL (32.0-36.0); Mean Corpuscular Hemoglobin 28.5 pg (27.0-33.0); Mean Corpuscular Volume 91.4 fl (81.2-95.1); Mean Platelet Volume 9.5 fl (7.4-10.4); Platelet Count 429 10x3/uL (150-450); Red Blood Cell (RBC) Count 3.26 10x6/uL (4.32-5.72); White Blood Cell (WBC) Count 9.9 10x3/uL (3.5-10.5)
[2020-10-04] MEDS: clonazePAM 0.5 MG TAB PO SCH ×3 (08:48→22:04)
[2020-10-04] MEDS: Magnesium Oxide 400 MG TAB PO SCH (08:48)
[2020-10-04] MEDS: Metoprolol Tartrate 25 MG TAB PO SCH (08:48)
[2020-10-04] MEDS: Cholecalciferol (Vitamin D3) 400 UNITS TAB PO SCH (08:48)
[2020-10-04] MEDS: Polyethylene Glycol 3350 17 GM Packet PER TUBE SCH (08:49)
[2020-10-04] MEDS: Docusate Sodium 100 MG/10 ML UDCUP PO SCH ×2 (08:52→22:04)
[2020-10-04] MEDS: Lantus 1000 UNITS/10 ML VIAL SC SCH ×2 (08:53→22:10)
[2020-10-04] MEDS: Simethicone 40 MG/0.6 ML Drop 30 ML BOT PO SCH ×3 (08:53→22:07)
[2020-10-04] MEDS: Pantoprazole 40 MG VIAL IVP SCH ×2 (08:53→22:07)
[2020-10-04] MEDS: Scopolamine 1.5 mg/72 hour Patch TD SCH (10:40)
[2020-10-04] MEDS: guaiFENesin 100 MG/5 ML UDCUP PO SCH ×2 (17:19→23:30)
[2020-10-04] MEDS: Enoxaparin Sodium 40 MG/0.4 ML SYRINGE SC SCH (22:04)
[2020-10-04] MEDS: Tamsulosin HCl 0.4 MG CAP PO SCH (22:08)
[2020-10-05] MEDS: Metoprolol Tartrate 25 MG TAB PO SCH ×3 (04:04→21:30)
[2020-10-05] MEDS: Ivabradine 5 MG TAB PO SCH ×2 (05:19→17:41)
[2020-10-05] MEDS: guaiFENesin 100 MG/5 ML UDCUP PO SCH ×4 (05:21→23:05)
[2020-10-05] MEDS: Budesonide 0.5 MG/2 ML NEB NEB SCH ×2 (07:10→19:01)
[2020-10-05] MEDS: clonazePAM 0.5 MG TAB PO SCH ×3 (08:05→21:30)
[2020-10-05] MEDS: Docusate Sodium 100 MG/10 ML UDCUP PO SCH ×2 (08:06→21:38)
[2020-10-05] MEDS: Magnesium Oxide 400 MG TAB PO SCH (08:06)
[2020-10-05] MEDS: Cholecalciferol (Vitamin D3) 400 UNITS TAB PO SCH (08:06)
[2020-10-05] MEDS: Pantoprazole 40 MG VIAL IVP SCH ×2 (08:06→21:30)
[2020-10-05] MEDS: Polyethylene Glycol 3350 17 GM Packet PER TUBE SCH (08:07)
[2020-10-05] MEDS: Lantus 1000 UNITS/10 ML VIAL SC SCH ×2 (08:07→21:39)
[2020-10-05] MEDS: Simethicone 40 MG/0.6 ML Drop 30 ML BOT PO SCH ×3 (08:07→21:30)
[2020-10-05] MEDS: Lorazepam 2 MG/ML VIAL SLOW IVP PRN (11:47)
[2020-10-05] MEDS ORDERED: GUAIFENESIN SF SOLN 200 MG/10 ML UDCUP PO SCH (18:00)
[2020-10-05] MEDS: Tamsulosin HCl 0.4 MG CAP PO SCH (21:30)
[2020-10-05] MEDS: Enoxaparin Sodium 40 MG/0.4 ML SYRINGE SC SCH (21:30)
[2020-10-06] MEDS: Ivabradine 5 MG TAB PO SCH ×2 (05:31→16:21)
[2020-10-06] MEDS: guaiFENesin 100 MG/5 ML UDCUP PO SCH ×4 (05:32→23:00)
[2020-10-06] MEDS: Budesonide 0.5 MG/2 ML NEB NEB SCH ×2 (07:24→19:27)
[2020-10-06] MEDS: clonazePAM 0.5 MG TAB PO SCH ×3 (08:49→21:30)
[2020-10-06] MEDS: Magnesium Oxide 400 MG TAB PO SCH (08:49)
[2020-10-06] MEDS: Pantoprazole 40 MG VIAL IVP SCH ×2 (08:49→21:32)
[2020-10-06] MEDS: Metoprolol Tartrate 25 MG TAB PO SCH ×2 (08:50→21:32)
[2020-10-06] MEDS: Docusate Sodium 100 MG/10 ML UDCUP PO SCH ×2 (08:50→21:30)
[2020-10-06] MEDS: Cholecalciferol (Vitamin D3) 400 UNITS TAB PO SCH (08:50)
[2020-10-06] MEDS: Lantus 1000 UNITS/10 ML VIAL SC SCH ×2 (08:50→21:36)
[2020-10-06] MEDS: Polyethylene Glycol 3350 17 GM Packet PER TUBE SCH (08:50)
[2020-10-06] MEDS: Simethicone 40 MG/0.6 ML Drop 30 ML BOT PO SCH ×3 (08:51→21:32)
[2020-10-06] MEDS: ALPRAZolam 0.25 MG TAB PO PRN (11:30)
[2020-10-06] MEDS: Mag-Al Plus 1200 MG/1200 MG/120 MG/30 ML UDCUP PO PRN (16:21)
[2020-10-06] MEDS: Ondansetron PF 4 MG/2 ML Vial IVP PRN (17:46)
[2020-10-06] MEDS: Enoxaparin Sodium 40 MG/0.4 ML SYRINGE SC SCH (21:31)
[2020-10-06] MEDS: Tamsulosin HCl 0.4 MG CAP PO SCH (21:32)
[2020-10-07] MEDS: Ivabradine 5 MG TAB PO SCH ×2 (05:00→17:44)
[2020-10-07] MEDS: guaiFENesin 100 MG/5 ML UDCUP PO SCH ×3 (05:00→17:44)
[2020-10-07] MEDS: Budesonide 0.5 MG/2 ML NEB NEB SCH ×2 (07:57→19:14)
[2020-10-07] MEDS: Polyethylene Glycol 3350 17 GM Packet PER TUBE SCH (10:38)
[2020-10-07] MEDS: Pantoprazole 40 MG VIAL IVP SCH ×2 (10:38→20:54)
[2020-10-07] MEDS: Magnesium Oxide 400 MG TAB PO SCH (10:38)
[2020-10-07] MEDS: Metoprolol Tartrate 25 MG TAB PO SCH ×2 (10:38→20:53)
[2020-10-07] MEDS: Lantus 1000 UNITS/10 ML VIAL SC SCH ×2 (10:39→20:54)
[2020-10-07] MEDS: Cholecalciferol (Vitamin D3) 400 UNITS TAB PO SCH (10:39)
[2020-10-07] MEDS: clonazePAM 0.5 MG TAB PO SCH ×3 (10:39→20:53)
[2020-10-07] MEDS: Docusate Sodium 100 MG/10 ML UDCUP PO SCH ×2 (10:39→20:54)
[2020-10-07] MEDS: Simethicone 40 MG/0.6 ML Drop 30 ML BOT PO SCH ×3 (10:39→20:57)
[2020-10-07] MEDS: Scopolamine 1.5 mg/72 hour Patch TD SCH (12:15)
[2020-10-07] MEDS: ALPRAZolam 0.25 MG TAB PO PRN (14:00)
[2020-10-07] MEDS: Tamsulosin HCl 0.4 MG CAP PO SCH (20:53)
[2020-10-07] MEDS: Enoxaparin Sodium 40 MG/0.4 ML SYRINGE SC SCH (20:53)
[2020-10-08] MEDS: guaiFENesin 100 MG/5 ML UDCUP PO SCH ×4 (00:07→16:53)
[2020-10-08 04:36] LABS: #Basophils 0.1 10x3/uL (0.0-0.2); #Eosinphils 0.4 10x3/uL (0.0-0.5); #Monocytes 0.6 10x3/uL (0.0-1.1); #Neutrophils 5.3 10x3/uL (1.5-8.4); %Basophils 0.9 % (0.0-2.0); %Eosinophils 4.8 % (0.0-6.0); %Monocytes 7.1 % (0.0-10.0); %Neutrophils 64.5 % (40.0-75.0); Mean Corpuscular HGB CONC 31.1 g/dL (32.0-36.0); Mean Corpuscular Hemoglobin 28.2 pg (27.0-33.0); Mean Corpuscular Volume 90.7 fl (81.2-95.1); Mean Platelet Volume 9.3 fl (7.4-10.4); Platelet Count 476 10x3/uL (150-450); RBC Distribution Width 14.9 % (11.5-14.5); Red Blood Cell (RBC) Count 3.55 10x6/uL (4.32-5.72); White Blood Cell (WBC) Count 8.2 10x3/uL (3.5-10.5)
[2020-10-08 04:42] LABS: Anion Gap 14 mmol/L (10-20); BUN (Urea Nitrogen) 6 mg/dL (8.4-25.7); Calc. Creatinine Clearance 161 mL/min (70-130); Calcium 9.1 mg/dL (7.8-10.44); Carbon Dioxide 30 mmol/L (22-29); Chloride 98 mmol/L (98-107); Glucose 127 mg/dL (70-105); Magnesium 1.9 mg/dL (1.6-2.6); Potassium 4.1 mmol/L (3.5-5.1); Sodium 138 mmol/L (136-145)
[2020-10-08] MEDS: Ivabradine 5 MG TAB PO SCH ×2 (05:33→16:52)
[2020-10-08] MEDS: Budesonide 0.5 MG/2 ML NEB NEB SCH ×2 (08:00→19:03)
[2020-10-08] MEDS: ALPRAZolam 0.25 MG TAB PO PRN (10:49)
[2020-10-08] MEDS: Cholecalciferol (Vitamin D3) 400 UNITS TAB PO SCH (10:50)
[2020-10-08] MEDS: Metoprolol Tartrate 25 MG TAB PO SCH ×2 (10:50→20:56)
[2020-10-08] MEDS: Pantoprazole 40 MG VIAL IVP SCH ×2 (10:50→20:56)
[2020-10-08] MEDS: clonazePAM 0.5 MG TAB PO SCH ×3 (10:50→20:56)
[2020-10-08] MEDS: Docusate Sodium 100 MG/10 ML UDCUP PO SCH ×2 (10:50→20:27)
[2020-10-08] MEDS: Magnesium Oxide 400 MG TAB PO SCH (10:50)
[2020-10-08] MEDS: Lantus 1000 UNITS/10 ML VIAL SC SCH ×2 (10:50→20:56)
[2020-10-08] MEDS: Simethicone 40 MG/0.6 ML Drop 30 ML BOT PO SCH ×3 (10:51→20:57)
[2020-10-08] MEDS: Polyethylene Glycol 3350 17 GM Packet PER TUBE SCH (10:51)
[2020-10-08] MEDS: Lorazepam 2 MG/ML VIAL SLOW IVP PRN (16:15)
[2020-10-08] MEDS: Tamsulosin HCl 0.4 MG CAP PO SCH (20:56)
[2020-10-08] MEDS: Enoxaparin Sodium 40 MG/0.4 ML SYRINGE SC SCH (20:56)
[2020-10-09] MEDS: GUAIFENESIN SF SOLN 200 MG/10 ML UDCUP PO SCH ×4 (00:11→17:51)
[2020-10-09] MEDS: Ivabradine 5 MG TAB PO SCH ×2 (05:39→17:51)
[2020-10-09] MEDS: Budesonide 0.5 MG/2 ML NEB NEB SCH ×2 (07:21→19:55)
[2020-10-09] MEDS: Lantus 1000 UNITS/10 ML VIAL SC SCH ×2 (09:21→21:49)
[2020-10-09] MEDS: Pantoprazole 40 MG VIAL IVP SCH ×2 (09:21→21:48)
[2020-10-09] MEDS: Cholecalciferol (Vitamin D3) 400 UNITS TAB PO SCH (09:21)
[2020-10-09] MEDS: clonazePAM 0.5 MG TAB PO SCH ×3 (09:21→21:49)
[2020-10-09] MEDS: Magnesium Oxide 400 MG TAB PO SCH (09:21)
[2020-10-09] MEDS: Metoprolol Tartrate 25 MG TAB PO SCH ×2 (09:21→21:49)
[2020-10-09] MEDS: Polyethylene Glycol 3350 17 GM Packet PER TUBE SCH (09:22)
[2020-10-09] MEDS: Docusate Sodium 100 MG/10 ML UDCUP PO SCH ×2 (09:22→21:50)
[2020-10-09] MEDS: Simethicone 40 MG/0.6 ML Drop 30 ML BOT PO SCH ×3 (09:58→21:52)
[2020-10-09] MEDS: Lorazepam 2 MG/ML VIAL SLOW IVP PRN (18:08)
[2020-10-09] MEDS: Tamsulosin HCl 0.4 MG CAP PO SCH (21:49)
[2020-10-09] MEDS: Enoxaparin Sodium 40 MG/0.4 ML SYRINGE SC SCH (21:49)
[2020-10-10] MEDS: GUAIFENESIN SF SOLN 200 MG/10 ML UDCUP PO SCH ×4 (00:03→17:08)
[2020-10-10 05:07] LABS: #Basophils 0.1 10x3/uL (0.0-0.2); #Eosinphils 0.4 10x3/uL (0.0-0.5); #Monocytes 0.6 10x3/uL (0.0-1.1); #Neutrophils 5.6 10x3/uL (1.5-8.4); %Basophils 0.6 % (0.0-2.0); %Eosinophils 4.3 % (0.0-6.0); %Lymphocytes 19.3 % (18.0-47.0); %Monocytes 7.6 % (0.0-10.0); %Neutrophils 66.8 % (40.0-75.0); Hemoglobin 10.2 g/dL (13.5-17.5); Mean Corpuscular HGB CONC 30.7 g/dL (32.0-36.0); Mean Corpuscular Hemoglobin 28.3 pg (27.0-33.0); Mean Platelet Volume 9.1 fl (7.4-10.4); Platelet Count 457 10x3/uL (150-450); RBC Distribution Width 14.6 % (11.5-14.5); Red Blood Cell (RBC) Count 3.61 10x6/uL (4.32-5.72); White Blood Cell (WBC) Count 8.3 10x3/uL (3.5-10.5)
[2020-10-10 05:16] LABS: Anion Gap 13 mmol/L (10-20); BUN (Urea Nitrogen) 12 mg/dL (8.4-25.7); Calc. Creatinine Clearance 153 mL/min (70-130); Calcium 8.9 mg/dL (7.8-10.44); Carbon Dioxide 34 mmol/L (22-29); Chloride 96 mmol/L (98-107); Glucose 122 mg/dL (70-105); Potassium 4.4 mmol/L (3.5-5.1); Sodium 139 mmol/L (136-145)
[2020-10-10] MEDS: Ivabradine 5 MG TAB PO SCH ×2 (06:06→17:08)
[2020-10-10] MEDS: Budesonide 0.5 MG/2 ML NEB NEB SCH ×2 (07:16→19:04)
[2020-10-10] MEDS: Magnesium Oxide 400 MG TAB PO SCH (09:45)
[2020-10-10] MEDS: clonazePAM 0.5 MG TAB PO SCH ×3 (09:45→21:22)
[2020-10-10] MEDS: Lantus 1000 UNITS/10 ML VIAL SC SCH ×2 (09:45→22:19)
[2020-10-10] MEDS: Docusate Sodium 100 MG/10 ML UDCUP PO SCH ×2 (09:45→21:22)
[2020-10-10] MEDS: Polyethylene Glycol 3350 17 GM Packet PER TUBE SCH (09:45)
[2020-10-10] MEDS: Metoprolol Tartrate 25 MG TAB PO SCH ×2 (09:45→21:23)
[2020-10-10] MEDS: Pantoprazole 40 MG VIAL IVP SCH ×2 (09:45→21:24)
[2020-10-10] MEDS: Cholecalciferol (Vitamin D3) 400 UNITS TAB PO SCH (09:45)
[2020-10-10] MEDS: Simethicone 40 MG/0.6 ML Drop 30 ML BOT PO SCH ×3 (09:46→21:26)
[2020-10-10] MEDS: Scopolamine 1.5 mg/72 hour Patch TD SCH (11:55)
[2020-10-10] MEDS: Lorazepam 2 MG/ML VIAL SLOW IVP PRN (17:54)
[2020-10-10] MEDS: Enoxaparin Sodium 40 MG/0.4 ML SYRINGE SC SCH (21:23)
[2020-10-10] MEDS: Tamsulosin HCl 0.4 MG CAP PO SCH (21:27)
[2020-10-10] MEDS: Insulin Regular 300 UNITS/3 ML VIAL SC PRN (22:19)
[2020-10-11] MEDS: GUAIFENESIN SF SOLN 200 MG/10 ML UDCUP PO SCH ×4 (00:01→17:22)
[2020-10-11 05:00] LABS: #Eosinphils 0.3 10x3/uL (0.0-0.5); #Monocytes 0.6 10x3/uL (0.0-1.1); %Basophils 0.5 % (0.0-2.0); %Eosinophils 4.2 % (0.0-6.0); %Lymphocytes 23.2 % (18.0-47.0); %Monocytes 7.7 % (0.0-10.0); Hemoglobin 10.1 g/dL (13.5-17.5); Mean Corpuscular HGB CONC 31.1 g/dL (32.0-36.0); Mean Corpuscular Hemoglobin 28.4 pg (27.0-33.0); Mean Corpuscular Volume 91.3 fl (81.2-95.1); Platelet Count 410 10x3/uL (150-450); RBC Distribution Width 14.7 % (11.5-14.5); Red Blood Cell (RBC) Count 3.56 10x6/uL (4.32-5.72); White Blood Cell (WBC) Count 7.9 10x3/uL (3.5-10.5)
[2020-10-11 05:11] LABS: Anion Gap 14 mmol/L (10-20); BUN (Urea Nitrogen) 13 mg/dL (8.4-25.7); Calc. Creatinine Clearance 164 mL/min (70-130); Calcium 8.8 mg/dL (7.8-10.44); Carbon Dioxide 32 mmol/L (22-29); Chloride 96 mmol/L (98-107); Glucose 88 mg/dL (70-105); Magnesium 1.8 mg/dL (1.6-2.6); Potassium 4.3 mmol/L (3.5-5.1); Sodium 138 mmol/L (136-145)
[2020-10-11] MEDS: Ivabradine 5 MG TAB PO SCH ×2 (05:38→17:22)
[2020-10-11] MEDS: Budesonide 0.5 MG/2 ML NEB NEB SCH ×2 (07:08→19:28)
[2020-10-11] MEDS: clonazePAM 0.5 MG TAB PO SCH ×3 (08:49→20:33)
[2020-10-11] MEDS: Metoprolol Tartrate 25 MG TAB PO SCH ×2 (08:49→20:33)
[2020-10-11] MEDS: Magnesium Oxide 400 MG TAB PO SCH (08:49)
[2020-10-11] MEDS: Polyethylene Glycol 3350 17 GM Packet PER TUBE SCH (08:50)
[2020-10-11] MEDS: Docusate Sodium 100 MG/10 ML UDCUP PO SCH (08:50)
[2020-10-11] MEDS: Cholecalciferol (Vitamin D3) 400 UNITS TAB PO SCH (08:50)
[2020-10-11] MEDS: Lantus 1000 UNITS/10 ML VIAL SC SCH ×2 (08:50→20:34)
[2020-10-11] MEDS: Simethicone 40 MG/0.6 ML Drop 30 ML BOT PO SCH ×3 (08:50→20:35)
[2020-10-11] MEDS: Pantoprazole 40 MG VIAL IVP SCH ×2 (08:50→20:35)
[2020-10-11] MEDS: Enoxaparin Sodium 40 MG/0.4 ML SYRINGE SC SCH (20:32)
[2020-10-11] MEDS: Acetaminophen 325 MG TAB PO PRN (20:32)
[2020-10-11] MEDS: ALPRAZolam 0.25 MG TAB PO PRN (20:33)
[2020-10-11] MEDS: Tamsulosin HCl 0.4 MG CAP PO SCH (20:33)
[2020-10-12] MEDS: GUAIFENESIN SF SOLN 200 MG/10 ML UDCUP PO SCH ×5 (00:30→23:55)
[2020-10-12] MEDS: Docusate Sodium 100 MG/10 ML UDCUP PO SCH ×3 (01:32→19:45)
[2020-10-12] MEDS: Lorazepam 2 MG/ML VIAL SLOW IVP PRN ×2 (02:53→23:32)
[2020-10-12 04:31] LABS: #Basophils 0.1 10x3/uL (0.0-0.2); #Eosinphils 0.3 10x3/uL (0.0-0.5); #Monocytes 0.7 10x3/uL (0.0-1.1); #Neutrophils 5.4 10x3/uL (1.5-8.4); %Basophils 0.8 % (0.0-2.0); %Eosinophils 3.8 % (0.0-6.0); %Lymphocytes 15.9 % (18.0-47.0); %Monocytes 8.5 % (0.0-10.0); %Neutrophils 69.7 % (40.0-75.0); Hemoglobin 11.4 g/dL (13.5-17.5); Mean Corpuscular HGB CONC 29.8 g/dL (32.0-36.0); Mean Corpuscular Volume 93.9 fl (81.2-95.1); Mean Platelet Volume 8.8 fl (7.4-10.4); Platelet Count 367 10x3/uL (150-450); RBC Distribution Width 14.6 % (11.5-14.5); Red Blood Cell (RBC) Count 4.07 10x6/uL (4.32-5.72); White Blood Cell (WBC) Count 7.7 10x3/uL (3.5-10.5)
[2020-10-12 04:34] LABS: BUN (Urea Nitrogen) 8 mg/dL (8.4-25.7); Calc. Creatinine Clearance 154 mL/min (70-130); Calcium 9.1 mg/dL (7.8-10.44); Glucose 176 mg/dL (70-105); Magnesium 1.9 mg/dL (1.6-2.6)
[2020-10-12 04:41] LABS: Anion Gap 15 mmol/L (10-20); Carbon Dioxide 35 mmol/L (22-29); Chloride 96 mmol/L (98-107); Potassium 4.7 mmol/L (3.5-5.1); Sodium 141 mmol/L (136-145)
[2020-10-12] MEDS: Insulin Regular 300 UNITS/3 ML VIAL SC PRN ×2 (04:54→22:50)
[2020-10-12] MEDS: Ivabradine 5 MG TAB PO SCH ×2 (05:27→17:53)
[2020-10-12] MEDS: Budesonide 0.5 MG/2 ML NEB NEB SCH ×2 (07:30→18:51)
[2020-10-12] MEDS: Magnesium Oxide 400 MG TAB PO SCH (07:49)
[2020-10-12] MEDS: Cholecalciferol (Vitamin D3) 400 UNITS TAB PO SCH (07:49)
[2020-10-12] MEDS: Pantoprazole 40 MG VIAL IVP SCH ×2 (07:49→20:46)
[2020-10-12] MEDS: Metoprolol Tartrate 25 MG TAB PO SCH ×2 (07:50→20:47)
[2020-10-12] MEDS: Lantus 1000 UNITS/10 ML VIAL SC SCH ×2 (07:50→20:46)
[2020-10-12] MEDS: clonazePAM 0.5 MG TAB PO SCH ×3 (07:50→20:47)
[2020-10-12] MEDS: Polyethylene Glycol 3350 17 GM Packet PER TUBE SCH (07:51)
[2020-10-12] MEDS: Simethicone 40 MG/0.6 ML Drop 30 ML BOT PO SCH ×3 (07:51→20:47)
[2020-10-12] MEDS: Acetaminophen 325 MG TAB PO PRN (17:52)
[2020-10-12] MEDS: Enoxaparin Sodium 40 MG/0.4 ML SYRINGE SC SCH (20:46)
[2020-10-12] MEDS: Tamsulosin HCl 0.4 MG CAP PO SCH (20:47)
[2020-10-13] MEDS: Lorazepam 2 MG/ML VIAL SLOW IVP PRN ×3 (03:03→22:30)
[2020-10-13] MEDS: Ivabradine 5 MG TAB PO SCH ×2 (05:46→17:11)
[2020-10-13] MEDS: ALPRAZolam 0.25 MG TAB PO PRN (05:46)
[2020-10-13] MEDS: GUAIFENESIN SF SOLN 200 MG/10 ML UDCUP PO SCH ×4 (05:46→23:41)
[2020-10-13] MEDS: Metoprolol Tartrate 25 MG TAB PO SCH ×2 (08:07→20:35)
[2020-10-13] MEDS: Cholecalciferol (Vitamin D3) 400 UNITS TAB PO SCH (08:07)
[2020-10-13] MEDS: Magnesium Oxide 400 MG TAB PO SCH (08:07)
[2020-10-13] MEDS: clonazePAM 0.5 MG TAB PO SCH ×3 (08:07→20:34)
[2020-10-13] MEDS: Pantoprazole 40 MG VIAL IVP SCH ×2 (08:07→20:35)
[2020-10-13] MEDS: Lantus 1000 UNITS/10 ML VIAL SC SCH ×2 (08:08→20:36)
[2020-10-13] MEDS: Docusate Sodium 100 MG/10 ML UDCUP PO SCH ×3 (08:09→21:46)
[2020-10-13] MEDS: Polyethylene Glycol 3350 17 GM Packet PER TUBE SCH (08:10)
[2020-10-13] MEDS: Simethicone 40 MG/0.6 ML Drop 30 ML BOT PO SCH ×3 (08:10→21:47)
[2020-10-13] MEDS: Budesonide 0.5 MG/2 ML NEB NEB SCH ×2 (08:46→18:50)
[2020-10-13] MEDS: Scopolamine 1.5 mg/72 hour Patch TD SCH (11:16)
[2020-10-13] MEDS: Tamsulosin HCl 0.4 MG CAP PO SCH (20:35)
[2020-10-13] MEDS: Enoxaparin Sodium 40 MG/0.4 ML SYRINGE SC SCH (20:35)
[2020-10-13] MEDS: Insulin Regular 300 UNITS/3 ML VIAL SC PRN (23:41)
[2020-10-14] MEDS: Ivabradine 5 MG TAB PO SCH ×2 (05:03→18:28)
[2020-10-14] MEDS: GUAIFENESIN SF SOLN 200 MG/10 ML UDCUP PO SCH ×3 (05:03→18:28)
[2020-10-14] MEDS: Insulin Regular 300 UNITS/3 ML VIAL SC PRN ×2 (05:16→16:37)
[2020-10-14] MEDS: Budesonide 0.5 MG/2 ML NEB NEB SCH ×2 (09:00→19:36)
[2020-10-14] MEDS: Cholecalciferol (Vitamin D3) 400 UNITS TAB PO SCH (09:23)
[2020-10-14] MEDS: clonazePAM 0.5 MG TAB PO SCH ×3 (09:23→21:43)
[2020-10-14] MEDS: Metoprolol Tartrate 25 MG TAB PO SCH ×3 (09:23→23:48)
[2020-10-14] MEDS: Magnesium Oxide 400 MG TAB PO SCH (09:23)
[2020-10-14] MEDS: Lantus 1000 UNITS/10 ML VIAL SC SCH ×2 (09:24→21:43)
[2020-10-14] MEDS: Polyethylene Glycol 3350 17 GM Packet PER TUBE SCH (09:24)
[2020-10-14] MEDS: Pantoprazole 40 MG VIAL IVP SCH ×2 (09:24→21:43)
[2020-10-14] MEDS: Docusate Sodium 100 MG/10 ML UDCUP PO SCH ×2 (09:24→21:44)
[2020-10-14] MEDS: Simethicone 40 MG/0.6 ML Drop 30 ML BOT PO SCH ×3 (09:24→21:44)
[2020-10-14] MEDS: Lorazepam 2 MG/ML VIAL SLOW IVP PRN (11:03)
[2020-10-14 20:12] LABS: Base Excess (BEa) 13.1 mEq/L (-2.0 to +3.0); CO2 Tension 82.2 mmHg (35.0-45.0); O2 Tension (PaO2), arterial 89.8 mmHg (80.0-100.0); Potassium - ABG Lab 4.4 mmol/L (3.70-5.30); Puncture Site RRA; pH, Arterial 7.33 (7.35-7.45)
[2020-10-14] MEDS: Enoxaparin Sodium 40 MG/0.4 ML SYRINGE SC SCH (21:43)
[2020-10-14] MEDS: Tamsulosin HCl 0.4 MG CAP PO SCH (21:43)
[2020-10-14 22:50] LABS: ALV-art Gradient 148.675 mmHg (0-20); Actual Bicarbonate (HCO3a) 46.6 mEq/L (22-28); CO2 Tension 64.1 mmHg (35.0-45.0); Calcium, Ionized (arterial) 1.17 mmol/L (1.12-1.30); Carboxyhemoglobin (COHb) 0.8 gm% (0.0-3.0); Hemoglobin (Hb) 10.9 g/dL (14.0-18.0); O2 Tension (PaO2), arterial 127.7 mmHg (80.0-100.0); Potassium - ABG Lab 3.8 mmol/L (3.70-5.30); Puncture Site RBA; pH, Arterial 7.48 (7.35-7.45)
[2020-10-15] MEDS: GUAIFENESIN SF SOLN 200 MG/10 ML UDCUP PO SCH ×4 (00:16→17:29)
[2020-10-15] MEDS: Insulin Regular 300 UNITS/3 ML VIAL SC PRN ×2 (05:00→10:28)
[2020-10-15] MEDS: Ivabradine 5 MG TAB PO SCH ×2 (05:45→17:30)
[2020-10-15] MEDS: Budesonide 0.5 MG/2 ML NEB NEB SCH ×2 (07:09→19:17)
[2020-10-15] MEDS: Magnesium Oxide 400 MG TAB PO SCH (08:45)
[2020-10-15] MEDS: Cholecalciferol (Vitamin D3) 400 UNITS TAB PO SCH (08:45)
[2020-10-15] MEDS: clonazePAM 0.5 MG TAB PO SCH ×3 (08:45→22:20)
[2020-10-15] MEDS: Pantoprazole 40 MG VIAL IVP SCH ×2 (08:46→22:21)
[2020-10-15] MEDS: Docusate Sodium 100 MG/10 ML UDCUP PO SCH ×2 (08:46→22:22)
[2020-10-15] MEDS: Lantus 1000 UNITS/10 ML VIAL SC SCH ×2 (08:46→22:24)
[2020-10-15] MEDS: Simethicone 40 MG/0.6 ML Drop 30 ML BOT PO SCH ×3 (08:47→22:22)
[2020-10-15] MEDS: Polyethylene Glycol 3350 17 GM Packet PER TUBE SCH (08:47)
[2020-10-15] MEDS: Metoprolol Tartrate 25 MG TAB PO SCH ×2 (08:48→22:24)
[2020-10-15] MEDS: Acetaminophen 325 MG TAB PO PRN (09:03)
[2020-10-15] MEDS: Tamsulosin HCl 0.4 MG CAP PO SCH (22:20)
[2020-10-15] MEDS: Enoxaparin Sodium 40 MG/0.4 ML SYRINGE SC SCH (22:20)
[2020-10-16] MEDS: GUAIFENESIN SF SOLN 200 MG/10 ML UDCUP PO SCH ×5 (00:14→23:42)
[2020-10-16] MEDS: Ivabradine 5 MG TAB PO SCH ×2 (05:06→17:55)
[2020-10-16] MEDS: Budesonide 0.5 MG/2 ML NEB NEB SCH ×2 (07:09→19:26)
[2020-10-16] MEDS: Pantoprazole 40 MG VIAL IVP SCH ×2 (08:30→21:40)
[2020-10-16] MEDS: Magnesium Oxide 400 MG TAB PO SCH (08:30)
[2020-10-16] MEDS: Cholecalciferol (Vitamin D3) 400 UNITS TAB PO SCH (08:30)
[2020-10-16] MEDS: Lantus 1000 UNITS/10 ML VIAL SC SCH ×2 (08:30→21:39)
[2020-10-16] MEDS: clonazePAM 0.5 MG TAB PO SCH ×3 (08:30→21:40)
[2020-10-16] MEDS: Metoprolol Tartrate 25 MG TAB PO SCH ×2 (08:31→21:40)
[2020-10-16] MEDS: Docusate Sodium 100 MG/10 ML UDCUP PO SCH ×2 (08:31→21:00)
[2020-10-16] MEDS: Simethicone 40 MG/0.6 ML Drop 30 ML BOT PO SCH ×3 (08:31→21:49)
[2020-10-16] MEDS: Polyethylene Glycol 3350 17 GM Packet PER TUBE SCH (08:31)
[2020-10-16] MEDS: Scopolamine 1.5 mg/72 hour Patch TD SCH (10:44)
[2020-10-16] MEDS: Enoxaparin Sodium 40 MG/0.4 ML SYRINGE SC SCH (21:39)
[2020-10-16] MEDS: Tamsulosin HCl 0.4 MG CAP PO SCH (21:40)
[2020-10-16] MEDS: Insulin Regular 300 UNITS/3 ML VIAL SC PRN (21:48)
[2020-10-17] MEDS: Ivabradine 5 MG TAB PO SCH ×2 (05:38→17:43)
[2020-10-17] MEDS: GUAIFENESIN SF SOLN 200 MG/10 ML UDCUP PO SCH ×4 (05:39→23:46)
[2020-10-17] MEDS: Budesonide 0.5 MG/2 ML NEB NEB SCH ×2 (07:32→18:50)
[2020-10-17] MEDS: Pantoprazole 40 MG VIAL IVP SCH ×2 (09:00→21:11)
[2020-10-17] MEDS: Metoprolol Tartrate 25 MG TAB PO SCH ×2 (09:00→21:11)
[2020-10-17] MEDS: Cholecalciferol (Vitamin D3) 400 UNITS TAB PO SCH (09:00)
[2020-10-17] MEDS: clonazePAM 0.5 MG TAB PO SCH ×3 (09:00→21:11)
[2020-10-17] MEDS: Magnesium Oxide 400 MG TAB PO SCH (09:00)
[2020-10-17] MEDS: Lantus 1000 UNITS/10 ML VIAL SC SCH ×2 (09:01→21:11)
[2020-10-17] MEDS: Simethicone 40 MG/0.6 ML Drop 30 ML BOT PO SCH ×3 (09:01→21:12)
[2020-10-17] MEDS: Polyethylene Glycol 3350 17 GM Packet PER TUBE SCH (09:01)
[2020-10-17] MEDS: Docusate Sodium 100 MG/10 ML UDCUP PO SCH ×2 (09:01→21:12)
[2020-10-17] MEDS: ALPRAZolam 0.25 MG TAB PO PRN ×2 (11:58→18:21)
[2020-10-17] MEDS: Insulin Regular 300 UNITS/3 ML VIAL SC PRN (16:31)
[2020-10-17] MEDS: Tamsulosin HCl 0.4 MG CAP PO SCH (21:11)
[2020-10-17] MEDS: Enoxaparin Sodium 40 MG/0.4 ML SYRINGE SC SCH (21:11)
[2020-10-18 04:23] LABS: #Eosinphils 0.5 10x3/uL (0.0-0.5); #Monocytes 0.9 10x3/uL (0.0-1.1); #Neutrophils 5.2 10x3/uL (1.5-8.4); %Basophils 0.4 % (0.0-2.0); %Eosinophils 5.7 % (0.0-6.0); %Monocytes 10.8 % (0.0-10.0); %Neutrophils 64.6 % (40.0-75.0); Hemoglobin 10.1 g/dL (13.5-17.5); Mean Corpuscular HGB CONC 30.3 g/dL (32.0-36.0); Mean Corpuscular Hemoglobin 28.1 pg (27.0-33.0); Mean Corpuscular Volume 92.5 fl (81.2-95.1); Mean Platelet Volume 9.5 fl (7.4-10.4); Platelet Count 261 10x3/uL (150-450); RBC Distribution Width 14.6 % (11.5-14.5); White Blood Cell (WBC) Count 8.1 10x3/uL (3.5-10.5)
[2020-10-18 04:34] LABS: BUN (Urea Nitrogen) 17 mg/dL (8.4-25.7); Calc. Creatinine Clearance 156 mL/min (70-130); Calcium 9.2 mg/dL (7.8-10.44); Glucose 145 mg/dL (70-105)
[2020-10-18 04:41] LABS: Anion Gap 18 mmol/L (10-20); Carbon Dioxide 34 mmol/L (22-29); Chloride 94 mmol/L (98-107); Potassium 4.5 mmol/L (3.5-5.1); Sodium 141 mmol/L (136-145)
[2020-10-18] MEDS: GUAIFENESIN SF SOLN 200 MG/10 ML UDCUP PO SCH ×3 (06:24→17:37)
[2020-10-18] MEDS: Ivabradine 5 MG TAB PO SCH ×2 (06:25→17:37)
[2020-10-18] MEDS: Budesonide 0.5 MG/2 ML NEB NEB SCH ×2 (08:11→19:15)
[2020-10-18] MEDS: Metoprolol Tartrate 25 MG TAB PO SCH ×2 (09:57→20:35)
[2020-10-18] MEDS: Pantoprazole 40 MG VIAL IVP SCH ×2 (09:57→20:35)
[2020-10-18] MEDS: Cholecalciferol (Vitamin D3) 400 UNITS TAB PO SCH (09:57)
[2020-10-18] MEDS: clonazePAM 0.5 MG TAB PO SCH ×3 (09:57→20:34)
[2020-10-18] MEDS: Magnesium Oxide 400 MG TAB PO SCH (09:57)
[2020-10-18] MEDS: Lantus 1000 UNITS/10 ML VIAL SC SCH ×2 (09:57→20:34)
[2020-10-18] MEDS: Simethicone 40 MG/0.6 ML Drop 30 ML BOT PO SCH ×3 (09:58→20:44)
[2020-10-18] MEDS: Polyethylene Glycol 3350 17 GM Packet PER TUBE SCH (09:58)
[2020-10-18] MEDS: Docusate Sodium 100 MG/10 ML UDCUP PO SCH ×2 (09:58→20:34)
[2020-10-18] MEDS: ALPRAZolam 0.25 MG TAB PO PRN (15:48)
[2020-10-18] MEDS: Enoxaparin Sodium 40 MG/0.4 ML SYRINGE SC SCH (20:34)
[2020-10-18] MEDS: Tamsulosin HCl 0.4 MG CAP PO SCH (20:36)
[2020-10-19] MEDS: GUAIFENESIN SF SOLN 200 MG/10 ML UDCUP PO SCH ×4 (00:19→18:23)
[2020-10-19] MEDS: Ivabradine 5 MG TAB PO SCH ×2 (05:11→16:26)
[2020-10-19] MEDS: Budesonide 0.5 MG/2 ML NEB NEB SCH ×2 (07:32→19:06)
[2020-10-19] MEDS: Magnesium Oxide 400 MG TAB PO SCH (08:26)
[2020-10-19] MEDS: clonazePAM 0.5 MG TAB PO SCH ×3 (08:26→21:27)
[2020-10-19] MEDS: Pantoprazole 40 MG VIAL IVP SCH ×2 (08:26→21:28)
[2020-10-19] MEDS: Metoprolol Tartrate 25 MG TAB PO SCH ×2 (08:27→21:27)
[2020-10-19] MEDS: Simethicone 40 MG/0.6 ML Drop 30 ML BOT PO SCH ×2 (08:27→16:25)
[2020-10-19] MEDS: Lantus 1000 UNITS/10 ML VIAL SC SCH (08:27)
[2020-10-19] MEDS: Polyethylene Glycol 3350 17 GM Packet PER TUBE SCH (08:27)
[2020-10-19] MEDS: Docusate Sodium 100 MG/10 ML UDCUP PO SCH ×2 (08:27→21:27)
[2020-10-19] MEDS: Cholecalciferol (Vitamin D3) 400 UNITS TAB PO SCH (08:27)
[2020-10-19] MEDS: Scopolamine 1.5 mg/72 hour Patch TD SCH (11:28)
[2020-10-19] MEDS: Tamsulosin HCl 0.4 MG CAP PO SCH (21:27)
[2020-10-19] MEDS: Enoxaparin Sodium 40 MG/0.4 ML SYRINGE SC SCH (21:28)
[2020-10-20] MEDS: GUAIFENESIN SF SOLN 200 MG/10 ML UDCUP PO SCH ×4 (00:16→18:02)
[2020-10-20] MEDS: Ondansetron PF 4 MG/2 ML Vial IVP PRN (00:48)
[2020-10-20] MEDS: Lantus 1000 UNITS/10 ML VIAL SC SCH ×3 (00:48→20:30)
[2020-10-20] MEDS: Calcium Carbonate 500 MG ChewTAB PO PRN (00:48)
[2020-10-20] MEDS: Simethicone 40 MG/0.6 ML Drop 30 ML BOT PO SCH ×4 (00:49→20:32)
[2020-10-20] MEDS: Ivabradine 5 MG TAB PO SCH ×2 (05:00→17:55)
[2020-10-20] MEDS: Budesonide 0.5 MG/2 ML NEB NEB SCH ×2 (07:25→20:12)
[2020-10-20] MEDS: Polyethylene Glycol 3350 17 GM Packet PER TUBE SCH (09:20)
[2020-10-20] MEDS: Docusate Sodium 100 MG/10 ML UDCUP PO SCH ×2 (09:46→20:30)
[2020-10-20] MEDS: Magnesium Oxide 400 MG TAB PO SCH (09:46)
[2020-10-20] MEDS: clonazePAM 0.5 MG TAB PO SCH ×3 (09:47→20:30)
[2020-10-20] MEDS: Cholecalciferol (Vitamin D3) 400 UNITS TAB PO SCH (09:47)
[2020-10-20] MEDS: Metoprolol Tartrate 25 MG TAB PO SCH ×2 (09:47→20:31)
[2020-10-20] MEDS: Pantoprazole 40 MG VIAL IVP SCH ×2 (09:48→20:31)
[2020-10-20] MEDS: Enoxaparin Sodium 40 MG/0.4 ML SYRINGE SC SCH (20:30)
[2020-10-20] MEDS: Tamsulosin HCl 0.4 MG CAP PO SCH (20:32)
[2020-10-21] MEDS: GUAIFENESIN SF SOLN 200 MG/10 ML UDCUP PO SCH ×4 (00:32→17:17)
[2020-10-21] MEDS: Ivabradine 5 MG TAB PO SCH ×2 (05:01→17:17)
[2020-10-21] MEDS: Budesonide 0.5 MG/2 ML NEB NEB SCH ×2 (07:39→19:27)
[2020-10-21] MEDS: Metoprolol Tartrate 25 MG TAB PO SCH ×2 (09:40→21:50)
[2020-10-21] MEDS: Magnesium Oxide 400 MG TAB PO SCH (09:40)
[2020-10-21] MEDS: clonazePAM 0.5 MG TAB PO SCH ×3 (09:40→21:49)
[2020-10-21] MEDS: Cholecalciferol (Vitamin D3) 400 UNITS TAB PO SCH (09:40)
[2020-10-21] MEDS: Pantoprazole 40 MG VIAL IVP SCH ×2 (09:41→21:53)
[2020-10-21] MEDS: Polyethylene Glycol 3350 17 GM Packet PER TUBE SCH (09:41)
[2020-10-21] MEDS: Docusate Sodium 100 MG/10 ML UDCUP PO SCH ×2 (09:41→21:49)
[2020-10-21] MEDS: Simethicone 40 MG/0.6 ML Drop 30 ML BOT PO SCH ×3 (09:41→21:54)
[2020-10-21] MEDS: Dextrose 50% Abboject 50 ML SYRINGE SLOW IVP PRN (10:20)
[2020-10-21] MEDS: Lantus 1000 UNITS/10 ML VIAL SC SCH ×2 (10:40→22:00)
[2020-10-21] MEDS: ALPRAZolam 0.25 MG TAB PO PRN (14:29)
[2020-10-21] MEDS: Enoxaparin Sodium 40 MG/0.4 ML SYRINGE SC SCH (21:49)
[2020-10-21] MEDS: Tamsulosin HCl 0.4 MG CAP PO SCH (21:54)
[2020-10-22] MEDS: GUAIFENESIN SF SOLN 200 MG/10 ML UDCUP PO SCH ×4 (00:04→17:00)
[2020-10-22] MEDS: Ivabradine 5 MG TAB PO SCH ×2 (05:44→17:00)
[2020-10-22] MEDS: Budesonide 0.5 MG/2 ML NEB NEB SCH ×2 (07:39→18:59)
[2020-10-22] MEDS: Cholecalciferol (Vitamin D3) 400 UNITS TAB PO SCH (08:45)
[2020-10-22] MEDS: Polyethylene Glycol 3350 17 GM Packet PER TUBE SCH (08:48)
[2020-10-22] MEDS: Metoprolol Tartrate 25 MG TAB PO SCH ×2 (08:48→20:56)
[2020-10-22] MEDS: Pantoprazole 40 MG VIAL IVP SCH ×2 (08:48→20:59)
[2020-10-22] MEDS: Simethicone 40 MG/0.6 ML Drop 30 ML BOT PO SCH ×3 (08:48→20:59)
[2020-10-22] MEDS: Docusate Sodium 100 MG/10 ML UDCUP PO SCH ×2 (08:48→20:54)
[2020-10-22] MEDS: clonazePAM 0.5 MG TAB PO SCH ×3 (08:48→20:54)
[2020-10-22] MEDS: Magnesium Oxide 400 MG TAB PO SCH (08:48)
[2020-10-22] MEDS: Lantus 1000 UNITS/10 ML VIAL SC SCH ×2 (08:48→21:31)
[2020-10-22 10:18] LABS: Actual Bicarbonate (HCO3a) 50.9 mEq/L (22-28); Base Excess (BEa) 19.2 mEq/L (-2.0 to +3.0); CO2 Tension 112.8 mmHg (35.0-45.0); Calcium, Ionized (arterial) 1.19 mmol/L (1.12-1.30); Carboxyhemoglobin (COHb) 1.3 gm% (0.0-3.0); Hemoglobin (Hb) 11.6 g/dL (14.0-18.0); O2 Tension (PaO2), arterial 101.9 mmHg (80.0-100.0); Potassium - ABG Lab 4.3 mmol/L (3.70-5.30); Puncture Site LRA; pH, Arterial 7.27 (7.35-7.45)
[2020-10-22] MEDS: Scopolamine 1.5 mg/72 hour Patch TD SCH (10:30)
[2020-10-22] MEDS: Enoxaparin Sodium 40 MG/0.4 ML SYRINGE SC SCH (20:54)
[2020-10-22] MEDS: Tamsulosin HCl 0.4 MG CAP PO SCH (21:00)
[2020-10-23] MEDS: GUAIFENESIN SF SOLN 200 MG/10 ML UDCUP PO SCH ×4 (00:11→17:50)
[2020-10-23] MEDS: Ivabradine 5 MG TAB PO SCH ×2 (05:35→17:50)
[2020-10-23] MEDS: Budesonide 0.5 MG/2 ML NEB NEB SCH ×2 (07:06→19:12)
[2020-10-23] MEDS: Magnesium Oxide 400 MG TAB PO SCH (08:09)
[2020-10-23] MEDS: Docusate Sodium 100 MG/10 ML UDCUP PO SCH ×2 (08:09→20:37)
[2020-10-23] MEDS: Cholecalciferol (Vitamin D3) 400 UNITS TAB PO SCH (08:09)
[2020-10-23] MEDS: clonazePAM 0.5 MG TAB PO SCH ×3 (08:09→20:36)
[2020-10-23] MEDS: Metoprolol Tartrate 25 MG TAB PO SCH ×2 (08:09→20:37)
[2020-10-23] MEDS: Lantus 1000 UNITS/10 ML VIAL SC SCH ×2 (08:09→21:09)
[2020-10-23] MEDS: Pantoprazole 40 MG VIAL IVP SCH ×2 (08:10→20:38)
[2020-10-23] MEDS: Polyethylene Glycol 3350 17 GM Packet PER TUBE SCH (08:10)
[2020-10-23] MEDS: Simethicone 40 MG/0.6 ML Drop 30 ML BOT PO SCH ×3 (08:10→20:38)
[2020-10-23] MEDS: Enoxaparin Sodium 40 MG/0.4 ML SYRINGE SC SCH (20:37)
[2020-10-23] MEDS: Tamsulosin HCl 0.4 MG CAP PO SCH (20:38)
[2020-10-24] MEDS: GUAIFENESIN SF SOLN 200 MG/10 ML UDCUP PO SCH ×4 (00:30→17:04)
[2020-10-24 04:33] LABS: #Eosinphils 0.3 10x3/uL (0.0-0.5); #Monocytes 0.7 10x3/uL (0.0-1.1); #Neutrophils 2.9 10x3/uL (1.5-8.4); %Basophils 0.7 % (0.0-2.0); %Monocytes 12.6 % (0.0-10.0); %Neutrophils 51.8 % (40.0-75.0); Hemoglobin 10.1 g/dL (13.5-17.5); Mean Corpuscular HGB CONC 30.8 g/dL (32.0-36.0); Mean Corpuscular Volume 90.9 fl (81.2-95.1); Mean Platelet Volume 9.4 fl (7.4-10.4); Platelet Count 261 10x3/uL (150-450); RBC Distribution Width 14.2 % (11.5-14.5); Red Blood Cell (RBC) Count 3.61 10x6/uL (4.32-5.72); White Blood Cell (WBC) Count 5.5 10x3/uL (3.5-10.5)
[2020-10-24 04:46] LABS: BUN (Urea Nitrogen) 7 mg/dL (8.4-25.7); Calc. Creatinine Clearance 170 mL/min (70-130); Calcium 9.4 mg/dL (7.8-10.44); Glucose 109 mg/dL (70-105)
[2020-10-24 04:54] LABS: Anion Gap 18 mmol/L (10-20); Carbon Dioxide 37 mmol/L (22-29); Chloride 91 mmol/L (98-107); Sodium 142 mmol/L (136-145)
[2020-10-24] MEDS: Ivabradine 5 MG TAB PO SCH ×2 (05:30→17:04)
[2020-10-24] MEDS: Budesonide 0.5 MG/2 ML NEB NEB SCH ×2 (07:10→19:12)
[2020-10-24] MEDS: Docusate Sodium 100 MG/10 ML UDCUP PO SCH (07:40)
[2020-10-24] MEDS: Polyethylene Glycol 3350 17 GM Packet PER TUBE SCH (07:41)
[2020-10-24] MEDS: Simethicone 40 MG/0.6 ML Drop 30 ML BOT PO SCH ×3 (08:53→21:05)
[2020-10-24] MEDS: Magnesium Oxide 400 MG TAB PO SCH (08:53)
[2020-10-24] MEDS: Pantoprazole 40 MG VIAL IVP SCH ×2 (08:53→21:20)
[2020-10-24] MEDS: Cholecalciferol (Vitamin D3) 400 UNITS TAB PO SCH (08:53)
[2020-10-24] MEDS: clonazePAM 0.5 MG TAB PO SCH ×3 (08:53→21:08)
[2020-10-24] MEDS: Metoprolol Tartrate 25 MG TAB PO SCH ×2 (08:53→21:09)
[2020-10-24] MEDS: Lantus 1000 UNITS/10 ML VIAL SC SCH ×2 (08:54→21:15)
[2020-10-24] MEDS ORDERED: Ibuprofen 600 MG TAB PO PRN (10:55)
[2020-10-24] MEDS: Ondansetron PF 4 MG/2 ML Vial IVP PRN (14:26)
[2020-10-24] MEDS: Ondansetron ODT 4 MG TAB PO PRN (14:30)
[2020-10-24] MEDS: Enoxaparin Sodium 40 MG/0.4 ML SYRINGE SC SCH (21:10)
[2020-10-24] MEDS: Tamsulosin HCl 0.4 MG CAP PO SCH (21:10)
[2020-10-25] MEDS: Docusate Sodium 100 MG/10 ML UDCUP PO SCH ×3 (01:08→21:52)
[2020-10-25] MEDS: GUAIFENESIN SF SOLN 200 MG/10 ML UDCUP PO SCH ×4 (01:13→17:09)
[2020-10-25 04:18] LABS: #Eosinphils 0.3 10x3/uL (0.0-0.5); #Monocytes 0.7 10x3/uL (0.0-1.1); #Neutrophils 3.2 10x3/uL (1.5-8.4); %Basophils 0.7 % (0.0-2.0); %Eosinophils 5.4 % (0.0-6.0); %Lymphocytes 27.5 % (18.0-47.0); %Neutrophils 53.6 % (40.0-75.0); Hemoglobin 10.6 g/dL (13.5-17.5); Mean Corpuscular HGB CONC 30.5 g/dL (32.0-36.0); Mean Corpuscular Hemoglobin 27.7 pg (27.0-33.0); Mean Corpuscular Volume 90.8 fl (81.2-95.1); Mean Platelet Volume 9.4 fl (7.4-10.4); Platelet Count 275 10x3/uL (150-450); RBC Distribution Width 14.4 % (11.5-14.5); Red Blood Cell (RBC) Count 3.82 10x6/uL (4.32-5.72); White Blood Cell (WBC) Count 5.9 10x3/uL (3.5-10.5)
[2020-10-25 04:51] LABS: BUN (Urea Nitrogen) 8 mg/dL (8.4-25.7); Calc. Creatinine Clearance 144 mL/min (70-130); Calcium 9.8 mg/dL (7.8-10.44); Glucose 93 mg/dL (70-105)
[2020-10-25 04:59] LABS: Anion Gap 16 mmol/L (10-20); Carbon Dioxide 38 mmol/L (22-29); Chloride 92 mmol/L (98-107); Potassium 4.1 mmol/L (3.5-5.1); Sodium 142 mmol/L (136-145)
[2020-10-25] MEDS: Ivabradine 5 MG TAB PO SCH ×2 (05:08→16:02)
[2020-10-25] MEDS: Budesonide 0.5 MG/2 ML NEB NEB SCH ×2 (07:08→19:07)
[2020-10-25] MEDS: Cholecalciferol (Vitamin D3) 400 UNITS TAB PO SCH (08:34)
[2020-10-25] MEDS: Polyethylene Glycol 3350 17 GM Packet PER TUBE SCH (08:35)
[2020-10-25] MEDS: Simethicone 40 MG/0.6 ML Drop 30 ML BOT PO SCH ×3 (08:35→21:56)
[2020-10-25] MEDS: Pantoprazole 40 MG VIAL IVP SCH ×2 (08:35→21:55)
[2020-10-25] MEDS: Metoprolol Tartrate 25 MG TAB PO SCH ×2 (08:35→21:52)
[2020-10-25] MEDS: Magnesium Oxide 400 MG TAB PO SCH (08:35)
[2020-10-25] MEDS: clonazePAM 0.5 MG TAB PO SCH ×3 (08:35→21:52)
[2020-10-25] MEDS: Lantus 1000 UNITS/10 ML VIAL SC SCH ×2 (08:36→21:54)
[2020-10-25] MEDS: Scopolamine 1.5 mg/72 hour Patch TD SCH (11:41)
[2020-10-25] MEDS: Enoxaparin Sodium 40 MG/0.4 ML SYRINGE SC SCH (21:54)
[2020-10-25] MEDS: Tamsulosin HCl 0.4 MG CAP PO SCH (21:57)
[2020-10-26] MEDS: GUAIFENESIN SF SOLN 200 MG/10 ML UDCUP PO SCH ×5 (00:15→23:01)
[2020-10-26 04:41] LABS: #Eosinphils 0.3 10x3/uL (0.0-0.5); #Monocytes 0.6 10x3/uL (0.0-1.1); #Neutrophils 3.2 10x3/uL (1.5-8.4); %Basophils 0.7 % (0.0-2.0); %Eosinophils 5.6 % (0.0-6.0); %Lymphocytes 28.6 % (18.0-47.0); %Monocytes 10.6 % (0.0-10.0); %Neutrophils 53.7 % (40.0-75.0); Hemoglobin 10.6 g/dL (13.5-17.5); Mean Corpuscular HGB CONC 31.5 g/dL (32.0-36.0); Mean Corpuscular Hemoglobin 28.3 pg (27.0-33.0); Mean Corpuscular Volume 89.8 fl (81.2-95.1); Platelet Count 263 10x3/uL (150-450); RBC Distribution Width 14.4 % (11.5-14.5); Red Blood Cell (RBC) Count 3.74 10x6/uL (4.32-5.72)
[2020-10-26 04:54] LABS: BUN (Urea Nitrogen) 17 mg/dL (8.4-25.7); Calc. Creatinine Clearance 146 mL/min (70-130); Calcium 9.8 mg/dL (7.8-10.44); Glucose 93 mg/dL (70-105)
[2020-10-26 05:01] LABS: Anion Gap 15 mmol/L (10-20); Carbon Dioxide 38 mmol/L (22-29); Chloride 92 mmol/L (98-107); Potassium 4.1 mmol/L (3.5-5.1); Sodium 141 mmol/L (136-145)
[2020-10-26] MEDS: Ivabradine 5 MG TAB PO SCH ×2 (05:58→17:13)
[2020-10-26] MEDS: Cholecalciferol (Vitamin D3) 400 UNITS TAB PO SCH (07:50)
[2020-10-26] MEDS: Metoprolol Tartrate 25 MG TAB PO SCH ×2 (07:50→22:32)
[2020-10-26] MEDS: clonazePAM 0.5 MG TAB PO SCH ×2 (07:50→14:18)
[2020-10-26] MEDS: Polyethylene Glycol 3350 17 GM Packet PER TUBE SCH (07:51)
[2020-10-26] MEDS: Magnesium Oxide 400 MG TAB PO SCH (07:51)
[2020-10-26] MEDS: Docusate Sodium 100 MG/10 ML UDCUP PO SCH ×2 (07:51→22:16)
[2020-10-26] MEDS: Budesonide 0.5 MG/2 ML NEB NEB SCH ×2 (08:10→19:08)
[2020-10-26] MEDS: Lantus 1000 UNITS/10 ML VIAL SC SCH ×2 (08:18→22:32)
[2020-10-26] MEDS: Simethicone 40 MG/0.6 ML Drop 30 ML BOT PO SCH ×3 (08:18→22:33)
[2020-10-26] MEDS: Pantoprazole 40 MG VIAL IVP SCH ×3 (08:19→22:32)
[2020-10-26] MEDS: Tamsulosin HCl 0.4 MG CAP PO SCH (22:32)
[2020-10-26] MEDS: Enoxaparin Sodium 40 MG/0.4 ML SYRINGE SC SCH (22:33)
[2020-10-27] MEDS: Ivabradine 5 MG TAB PO SCH ×2 (05:05→16:31)
[2020-10-27] MEDS: GUAIFENESIN SF SOLN 200 MG/10 ML UDCUP PO SCH ×4 (05:06→23:47)
[2020-10-27] MEDS: Cholecalciferol (Vitamin D3) 400 UNITS TAB PO SCH (07:53)
[2020-10-27] MEDS: Metoprolol Tartrate 25 MG TAB PO SCH ×2 (07:53→21:46)
[2020-10-27] MEDS: Magnesium Oxide 400 MG TAB PO SCH (07:53)
[2020-10-27] MEDS: Pantoprazole 40 MG VIAL IVP SCH ×2 (07:53→21:46)
[2020-10-27] MEDS: Lantus 1000 UNITS/10 ML VIAL SC SCH ×2 (07:54→21:46)
[2020-10-27] MEDS: Docusate Sodium 100 MG/10 ML UDCUP PO SCH ×2 (08:18→21:48)
[2020-10-27] MEDS: Polyethylene Glycol 3350 17 GM Packet PER TUBE SCH (08:18)
[2020-10-27] MEDS: Simethicone 40 MG/0.6 ML Drop 30 ML BOT PO SCH ×3 (08:19→21:47)
[2020-10-27] MEDS: Budesonide 0.5 MG/2 ML NEB NEB SCH ×2 (08:31→18:42)
[2020-10-27] MEDS: Enoxaparin Sodium 40 MG/0.4 ML SYRINGE SC SCH (21:46)
[2020-10-27] MEDS: Tamsulosin HCl 0.4 MG CAP PO SCH (21:46)
[2020-10-28] MEDS: GUAIFENESIN SF SOLN 200 MG/10 ML UDCUP PO SCH ×3 (05:51→17:02)
[2020-10-28] MEDS: Ivabradine 5 MG TAB PO SCH ×2 (05:52→16:03)
[2020-10-28] MEDS: Budesonide 0.5 MG/2 ML NEB NEB SCH ×2 (07:06→19:25)
[2020-10-28] MEDS: Magnesium Oxide 400 MG TAB PO SCH (08:03)
[2020-10-28] MEDS: Cholecalciferol (Vitamin D3) 400 UNITS TAB PO SCH (08:03)
[2020-10-28] MEDS: Metoprolol Tartrate 25 MG TAB PO SCH ×2 (08:03→20:42)
[2020-10-28] MEDS: Pantoprazole 40 MG VIAL IVP SCH ×2 (08:04→20:42)
[2020-10-28] MEDS: Lantus 1000 UNITS/10 ML VIAL SC SCH ×2 (08:04→20:42)
[2020-10-28] MEDS: Docusate Sodium 100 MG/10 ML UDCUP PO SCH ×2 (08:05→20:45)
[2020-10-28] MEDS: Polyethylene Glycol 3350 17 GM Packet PER TUBE SCH (08:05)
[2020-10-28] MEDS: Simethicone 40 MG/0.6 ML Drop 30 ML BOT PO SCH ×3 (08:08→20:47)
[2020-10-28] MEDS: Scopolamine 1.5 mg/72 hour Patch TD SCH (09:47)
[2020-10-28] MEDS: Tamsulosin HCl 0.4 MG CAP PO SCH (20:42)
[2020-10-28] MEDS: Enoxaparin Sodium 40 MG/0.4 ML SYRINGE SC SCH (20:42)
[2020-10-28] MEDS: Insulin Regular 300 UNITS/3 ML VIAL SC PRN (22:05)
[2020-10-29] MEDS: GUAIFENESIN SF SOLN 200 MG/10 ML UDCUP PO SCH ×4 (00:53→17:02)
[2020-10-29] MEDS: Ivabradine 5 MG TAB PO SCH ×2 (06:35→16:10)
[2020-10-29] MEDS: Budesonide 0.5 MG/2 ML NEB NEB SCH ×2 (07:01→20:31)
[2020-10-29] MEDS: Lantus 1000 UNITS/10 ML VIAL SC SCH ×2 (08:07→21:00)
[2020-10-29] MEDS: Magnesium Oxide 400 MG TAB PO SCH (08:07)
[2020-10-29] MEDS: Cholecalciferol (Vitamin D3) 400 UNITS TAB PO SCH (08:07)
[2020-10-29] MEDS: Metoprolol Tartrate 25 MG TAB PO SCH ×2 (08:07→21:00)
[2020-10-29] MEDS: Pantoprazole 40 MG VIAL IVP SCH ×2 (08:07→21:00)
[2020-10-29] MEDS: Docusate Sodium 100 MG/10 ML UDCUP PO SCH ×2 (08:08→21:00)
[2020-10-29] MEDS: Polyethylene Glycol 3350 17 GM Packet PER TUBE SCH (08:08)
[2020-10-29] MEDS: Simethicone 40 MG/0.6 ML Drop 30 ML BOT PO SCH ×3 (08:15→21:00)
[2020-10-29] MEDS: Insulin Regular 300 UNITS/3 ML VIAL SC PRN (11:09)
[2020-10-29] MEDS: Tamsulosin HCl 0.4 MG CAP PO SCH (21:00)
[2020-10-29] MEDS: Enoxaparin Sodium 40 MG/0.4 ML SYRINGE SC SCH (21:00)
[2020-10-30] MEDS: GUAIFENESIN SF SOLN 200 MG/10 ML UDCUP PO SCH ×4 (05:58→17:07)
[2020-10-30] MEDS: Ivabradine 5 MG TAB PO SCH ×2 (05:58→17:06)
[2020-10-30] MEDS: Budesonide 0.5 MG/2 ML NEB NEB SCH ×2 (06:39→19:29)
[2020-10-30] MEDS: Pantoprazole 40 MG VIAL IVP SCH (08:06)
[2020-10-30] MEDS: Metoprolol Tartrate 25 MG TAB PO SCH ×2 (08:06→21:21)
[2020-10-30] MEDS: Cholecalciferol (Vitamin D3) 400 UNITS TAB PO SCH (08:06)
[2020-10-30] MEDS: Magnesium Oxide 400 MG TAB PO SCH (08:06)
[2020-10-30] MEDS: Lantus 1000 UNITS/10 ML VIAL SC SCH ×2 (08:07→21:20)
[2020-10-30] MEDS: Docusate Sodium 100 MG/10 ML UDCUP PO SCH ×2 (08:07→20:54)
[2020-10-30] MEDS: Simethicone 40 MG/0.6 ML Drop 30 ML BOT PO SCH ×3 (08:08→21:21)
[2020-10-30] MEDS: Polyethylene Glycol 3350 17 GM Packet PER TUBE SCH (08:08)
[2020-10-30] MEDS: clonazePAM 0.5 MG TAB PO PRN ×2 (13:50→21:19)
[2020-10-30] MEDS: Famotidine 20 MG TAB PO SCH (21:20)
[2020-10-30] MEDS: Enoxaparin Sodium 40 MG/0.4 ML SYRINGE SC SCH (21:20)
[2020-10-30] MEDS: Tamsulosin HCl 0.4 MG CAP PO SCH (21:21)
[2020-10-31] MEDS: GUAIFENESIN SF SOLN 200 MG/10 ML UDCUP PO SCH ×4 (00:35→17:06)
[2020-10-31] MEDS: Ivabradine 5 MG TAB PO SCH ×2 (05:30→17:06)
[2020-10-31] MEDS: Budesonide 0.5 MG/2 ML NEB NEB SCH ×2 (06:45→19:17)
[2020-10-31] MEDS: Lantus 1000 UNITS/10 ML VIAL SC SCH ×2 (08:07→21:44)
[2020-10-31] MEDS: Cholecalciferol (Vitamin D3) 400 UNITS TAB PO SCH (08:09)
[2020-10-31] MEDS: Famotidine 20 MG TAB PO SCH ×2 (08:09→21:45)
[2020-10-31] MEDS: Metoprolol Tartrate 25 MG TAB PO SCH ×2 (08:09→21:45)
[2020-10-31] MEDS: Docusate Sodium 100 MG/10 ML UDCUP PO SCH ×2 (08:09→22:08)
[2020-10-31] MEDS: Polyethylene Glycol 3350 17 GM Packet PER TUBE SCH (08:09)
[2020-10-31] MEDS: Simethicone 40 MG/0.6 ML Drop 30 ML BOT PO SCH ×3 (08:09→21:45)
[2020-10-31] MEDS: Magnesium Oxide 400 MG TAB PO SCH (08:09)
[2020-10-31] MEDS: clonazePAM 0.5 MG TAB PO PRN ×2 (09:26→22:57)
[2020-10-31] MEDS: Scopolamine 1.5 mg/72 hour Patch TD SCH (12:32)
[2020-10-31] MEDS: Enoxaparin Sodium 40 MG/0.4 ML SYRINGE SC SCH (21:45)
[2020-10-31] MEDS: Tamsulosin HCl 0.4 MG CAP PO SCH (21:45)
[2020-11-01] MEDS: GUAIFENESIN SF SOLN 200 MG/10 ML UDCUP PO SCH ×5 (00:06→23:59)
[2020-11-01] MEDS: Ivabradine 5 MG TAB PO SCH ×2 (05:26→16:39)
[2020-11-01] MEDS: Budesonide 0.5 MG/2 ML NEB NEB SCH ×2 (07:16→18:41)
[2020-11-01] MEDS: Cholecalciferol (Vitamin D3) 400 UNITS TAB PO SCH (08:41)
[2020-11-01] MEDS: Polyethylene Glycol 3350 17 GM Packet PER TUBE SCH (08:43)
[2020-11-01] MEDS: Magnesium Oxide 400 MG TAB PO SCH (08:44)
[2020-11-01] MEDS: Metoprolol Tartrate 25 MG TAB PO SCH ×2 (08:44→20:49)
[2020-11-01] MEDS: Famotidine 20 MG TAB PO SCH ×2 (08:45→20:48)
[2020-11-01] MEDS: Docusate Sodium 100 MG/10 ML UDCUP PO SCH ×2 (08:46→20:47)
[2020-11-01] MEDS: Lantus 1000 UNITS/10 ML VIAL SC SCH ×2 (08:51→21:00)
[2020-11-01] MEDS: Simethicone 40 MG/0.6 ML Drop 30 ML BOT PO SCH ×3 (09:31→20:49)
[2020-11-01] MEDS: Insulin Regular 300 UNITS/3 ML VIAL SC PRN (11:29)
[2020-11-01] MEDS: Enoxaparin Sodium 40 MG/0.4 ML SYRINGE SC SCH (20:48)
[2020-11-01] MEDS: Tamsulosin HCl 0.4 MG CAP PO SCH (20:50)
[2020-11-01] MEDS: clonazePAM 0.5 MG TAB PO PRN (20:50)
[2020-11-02] MEDS: Ivabradine 5 MG TAB PO SCH ×2 (05:30→17:24)
[2020-11-02] MEDS: GUAIFENESIN SF SOLN 200 MG/10 ML UDCUP PO SCH ×3 (05:30→17:30)
[2020-11-02] MEDS: Budesonide 0.5 MG/2 ML NEB NEB SCH ×2 (07:14→19:24)
[2020-11-02] MEDS: Lantus 1000 UNITS/10 ML VIAL SC SCH ×2 (08:44→19:56)
[2020-11-02] MEDS: Magnesium Oxide 400 MG TAB PO SCH (08:44)
[2020-11-02] MEDS: Metoprolol Tartrate 25 MG TAB PO SCH ×2 (08:44→19:56)
[2020-11-02] MEDS: Famotidine 20 MG TAB PO SCH ×2 (08:44→19:56)
[2020-11-02] MEDS: Cholecalciferol (Vitamin D3) 400 UNITS TAB PO SCH (08:44)
[2020-11-02] MEDS: Simethicone 40 MG/0.6 ML Drop 30 ML BOT PO SCH ×3 (11:38→19:56)
[2020-11-02] MEDS: Docusate Sodium 100 MG/10 ML UDCUP PO SCH ×2 (11:38→19:55)
[2020-11-02] MEDS: Polyethylene Glycol 3350 17 GM Packet PER TUBE SCH (11:38)
[2020-11-02] MEDS: Insulin Regular 300 UNITS/3 ML VIAL SC PRN (13:41)
[2020-11-02] MEDS: Enoxaparin Sodium 40 MG/0.4 ML SYRINGE SC SCH (19:55)
[2020-11-02] MEDS: Tamsulosin HCl 0.4 MG CAP PO SCH (19:56)
[2020-11-03] MEDS: GUAIFENESIN SF SOLN 200 MG/10 ML UDCUP PO SCH ×5 (00:47→23:49)
[2020-11-03] MEDS: Ivabradine 5 MG TAB PO SCH ×2 (05:18→16:48)
[2020-11-03] MEDS: Budesonide 0.5 MG/2 ML NEB NEB SCH ×2 (07:35→19:25)
[2020-11-03] MEDS: Cholecalciferol (Vitamin D3) 400 UNITS TAB PO SCH (08:34)
[2020-11-03] MEDS: Metoprolol Tartrate 25 MG TAB PO SCH ×2 (08:34→21:35)
[2020-11-03] MEDS: Magnesium Oxide 400 MG TAB PO SCH (08:34)
[2020-11-03] MEDS: Famotidine 20 MG TAB PO SCH ×2 (08:35→21:34)
[2020-11-03] MEDS: Lantus 1000 UNITS/10 ML VIAL SC SCH ×2 (08:35→21:36)
[2020-11-03] MEDS: Simethicone 40 MG/0.6 ML Drop 30 ML BOT PO SCH ×3 (08:36→21:36)
[2020-11-03] MEDS: Docusate Sodium 100 MG/10 ML UDCUP PO SCH ×2 (14:51→23:48)
[2020-11-03] MEDS: Polyethylene Glycol 3350 17 GM Packet PER TUBE SCH (14:51)
[2020-11-03] MEDS: Benzonatate 100 MG CAP PO PRN (16:47)
[2020-11-03] MEDS: Scopolamine 1.5 mg/72 hour Patch TD SCH (16:48)
[2020-11-03] MEDS: Enoxaparin Sodium 40 MG/0.4 ML SYRINGE SC SCH (21:34)
[2020-11-03] MEDS: Tamsulosin HCl 0.4 MG CAP PO SCH (21:34)
[2020-11-04] MEDS: GUAIFENESIN SF SOLN 200 MG/10 ML UDCUP PO SCH ×4 (05:15→23:21)
[2020-11-04] MEDS: Ivabradine 5 MG TAB PO SCH ×2 (05:15→16:58)
[2020-11-04] MEDS: Budesonide 0.5 MG/2 ML NEB NEB SCH ×2 (07:43→19:15)
[2020-11-04] MEDS: Polyethylene Glycol 3350 17 GM Packet PER TUBE SCH (08:50)
[2020-11-04] MEDS: Cholecalciferol (Vitamin D3) 400 UNITS TAB PO SCH (08:50)
[2020-11-04] MEDS: Famotidine 20 MG TAB PO SCH ×2 (08:50→22:00)
[2020-11-04] MEDS: Lantus 1000 UNITS/10 ML VIAL SC SCH ×2 (08:50→22:30)
[2020-11-04] MEDS: Magnesium Oxide 400 MG TAB PO SCH (08:50)
[2020-11-04] MEDS: Metoprolol Tartrate 25 MG TAB PO SCH ×3 (08:50→22:50)
[2020-11-04] MEDS: Docusate Sodium 100 MG/10 ML UDCUP PO SCH ×2 (08:51→22:50)
[2020-11-04] MEDS: Simethicone 40 MG/0.6 ML Drop 30 ML BOT PO SCH (08:54)
[2020-11-04] MEDS: Insulin Regular 300 UNITS/3 ML VIAL SC PRN (12:44)
[2020-11-04] MEDS: Enoxaparin Sodium 40 MG/0.4 ML SYRINGE SC SCH (22:00)
[2020-11-04] MEDS: Tamsulosin HCl 0.4 MG CAP PO SCH (22:00)
[2020-11-05] MEDS: Ivabradine 5 MG TAB PO SCH ×2 (06:00→17:23)
[2020-11-05] MEDS: GUAIFENESIN SF SOLN 200 MG/10 ML UDCUP PO SCH ×3 (06:02→17:24)
[2020-11-05] MEDS: Budesonide 0.5 MG/2 ML NEB NEB SCH ×2 (07:07→19:50)
[2020-11-05] MEDS: Famotidine 20 MG TAB PO SCH ×2 (09:23→20:49)
[2020-11-05] MEDS: Metoprolol Tartrate 25 MG TAB PO SCH ×2 (09:23→20:49)
[2020-11-05] MEDS: Magnesium Oxide 400 MG TAB PO SCH (09:23)
[2020-11-05] MEDS: Docusate Sodium 100 MG/10 ML UDCUP PO SCH ×3 (09:23→20:50)
[2020-11-05] MEDS: Lantus 1000 UNITS/10 ML VIAL SC SCH ×2 (11:01→22:00)
[2020-11-05] MEDS: Insulin Regular 300 UNITS/3 ML VIAL SC PRN (12:10)
[2020-11-05] MEDS: Enoxaparin Sodium 40 MG/0.4 ML SYRINGE SC SCH (20:49)
[2020-11-05] MEDS: Tamsulosin HCl 0.4 MG CAP PO SCH (20:49)
[2020-11-06] MEDS: GUAIFENESIN SF SOLN 200 MG/10 ML UDCUP PO SCH ×4 (01:00→19:36)
[2020-11-06] MEDS: Ivabradine 5 MG TAB PO SCH ×2 (06:10→19:36)
[2020-11-06] MEDS: Budesonide 0.5 MG/2 ML NEB NEB SCH ×2 (07:13→19:50)
[2020-11-06] MEDS: Magnesium Oxide 400 MG TAB PO SCH (08:31)
[2020-11-06] MEDS: Metoprolol Tartrate 25 MG TAB PO SCH ×2 (08:31→21:38)
[2020-11-06] MEDS: Lantus 1000 UNITS/10 ML VIAL SC SCH ×2 (08:31→21:57)
[2020-11-06] MEDS: Docusate Sodium 100 MG/10 ML UDCUP PO SCH ×2 (08:31→21:39)
[2020-11-06] MEDS: Famotidine 20 MG TAB PO SCH ×2 (08:31→21:38)
[2020-11-06] MEDS: Scopolamine 1.5 mg/72 hour Patch TD SCH (11:12)
[2020-11-06] MEDS: Enoxaparin Sodium 40 MG/0.4 ML SYRINGE SC SCH (21:37)
[2020-11-06] MEDS: Tamsulosin HCl 0.4 MG CAP PO SCH (21:39)
[2020-11-07] MEDS: GUAIFENESIN SF SOLN 200 MG/10 ML UDCUP PO SCH ×4 (01:33→17:39)
[2020-11-07] MEDS: Ivabradine 5 MG TAB PO SCH ×2 (05:45→16:45)
[2020-11-07] MEDS: Budesonide 0.5 MG/2 ML NEB NEB SCH ×2 (06:51→19:40)
[2020-11-07] MEDS: Magnesium Oxide 400 MG TAB PO SCH (08:27)
[2020-11-07] MEDS: Famotidine 20 MG TAB PO SCH ×2 (08:28→21:02)
[2020-11-07] MEDS: Lantus 1000 UNITS/10 ML VIAL SC SCH ×2 (08:28→22:04)
[2020-11-07] MEDS: Docusate Sodium 100 MG/10 ML UDCUP PO SCH ×2 (08:28→21:32)
[2020-11-07] MEDS: Metoprolol Tartrate 25 MG TAB PO SCH ×2 (08:28→21:02)
[2020-11-07] MEDS: Tamsulosin HCl 0.4 MG CAP PO SCH (21:02)
[2020-11-07] MEDS: Enoxaparin Sodium 40 MG/0.4 ML SYRINGE SC SCH (21:03)
[2020-11-08] MEDS: GUAIFENESIN SF SOLN 200 MG/10 ML UDCUP PO SCH ×4 (01:24→17:42)
[2020-11-08] MEDS: Ivabradine 5 MG TAB PO SCH ×2 (05:28→17:42)
[2020-11-08] MEDS: Budesonide 0.5 MG/2 ML NEB NEB SCH ×2 (06:54→19:44)
[2020-11-08] MEDS: Docusate Sodium 100 MG/10 ML UDCUP PO SCH ×2 (10:07→21:50)
[2020-11-08] MEDS: Lantus 1000 UNITS/10 ML VIAL SC SCH ×2 (10:08→22:19)
[2020-11-08] MEDS: Magnesium Oxide 400 MG TAB PO SCH (10:08)
[2020-11-08] MEDS: Famotidine 20 MG TAB PO SCH ×2 (10:08→20:04)
[2020-11-08] MEDS: Metoprolol Tartrate 25 MG TAB PO SCH ×2 (10:12→20:05)
[2020-11-08] MEDS: Tamsulosin HCl 0.4 MG CAP PO SCH (20:05)
[2020-11-08] MEDS: Enoxaparin Sodium 40 MG/0.4 ML SYRINGE SC SCH (20:05)
[2020-11-09] MEDS: GUAIFENESIN SF SOLN 200 MG/10 ML UDCUP PO SCH ×4 (00:09→17:45)
[2020-11-09] MEDS: Ivabradine 5 MG TAB PO SCH ×2 (06:11→17:45)
[2020-11-09] MEDS: Lantus 1000 UNITS/10 ML VIAL SC SCH ×2 (08:00→21:50)
[2020-11-09] MEDS: Budesonide 0.5 MG/2 ML NEB NEB SCH ×2 (08:01→20:01)
[2020-11-09] MEDS: Magnesium Oxide 400 MG TAB PO SCH (08:45)
[2020-11-09] MEDS: Famotidine 20 MG TAB PO SCH ×2 (09:00→21:42)
[2020-11-09] MEDS: Metoprolol Tartrate 25 MG TAB PO SCH ×2 (09:00→21:42)
[2020-11-09] MEDS: Scopolamine 1.5 mg/72 hour Patch TD SCH (10:10)
[2020-11-09] MEDS: Docusate Sodium 100 MG/10 ML UDCUP PO SCH ×2 (14:49→21:50)
[2020-11-09] MEDS: Tamsulosin HCl 0.4 MG CAP PO SCH (21:42)
[2020-11-09] MEDS: Enoxaparin Sodium 40 MG/0.4 ML SYRINGE SC SCH (21:43)
[2020-11-10] MEDS: Ivabradine 5 MG TAB PO SCH ×2 (05:32→17:28)
[2020-11-10] MEDS: GUAIFENESIN SF SOLN 200 MG/10 ML UDCUP PO SCH ×4 (05:33→17:28)
[2020-11-10] MEDS: Budesonide 0.5 MG/2 ML NEB NEB SCH ×2 (07:20→19:40)
[2020-11-10] MEDS: Magnesium Oxide 400 MG TAB PO SCH (09:11)
[2020-11-10] MEDS: Docusate Sodium 100 MG/10 ML UDCUP PO SCH ×2 (09:11→22:00)
[2020-11-10] MEDS: Metoprolol Tartrate 25 MG TAB PO SCH ×2 (09:12→21:24)
[2020-11-10] MEDS: Famotidine 20 MG TAB PO SCH ×2 (09:12→21:24)
[2020-11-10] MEDS: Lantus 1000 UNITS/10 ML VIAL SC SCH ×2 (09:12→22:00)
[2020-11-10] MEDS: Tamsulosin HCl 0.4 MG CAP PO SCH (21:24)
[2020-11-10] MEDS: Enoxaparin Sodium 40 MG/0.4 ML SYRINGE SC SCH (22:00)
[2020-11-11] MEDS: GUAIFENESIN SF SOLN 200 MG/10 ML UDCUP PO SCH ×4 (01:00→18:03)
[2020-11-11] MEDS: Ivabradine 5 MG TAB PO SCH ×2 (06:00→17:45)
[2020-11-11] MEDS: Budesonide 0.5 MG/2 ML NEB NEB SCH ×2 (07:30→19:40)
[2020-11-11] MEDS: Magnesium Oxide 400 MG TAB PO SCH (08:50)
[2020-11-11] MEDS: Lantus 1000 UNITS/10 ML VIAL SC SCH ×2 (08:50→21:04)
[2020-11-11] MEDS: Famotidine 20 MG TAB PO SCH ×2 (08:50→21:03)
[2020-11-11] MEDS: Metoprolol Tartrate 25 MG TAB PO SCH ×2 (08:50→21:03)
[2020-11-11] MEDS: Docusate Sodium 100 MG/10 ML UDCUP PO SCH ×2 (08:50→21:45)
[2020-11-11 08:58] LABS: #Eosinphils 0.3 10x3/uL (0.0-0.5); #Monocytes 0.7 10x3/uL (0.0-1.1); #Neutrophils 4.2 10x3/uL (1.5-8.4); %Basophils 0.5 % (0.0-2.0); %Eosinophils 3.4 % (0.0-6.0); %Lymphocytes 29.5 % (18.0-47.0); %Monocytes 9.2 % (0.0-10.0); %Neutrophils 57.1 % (40.0-75.0); Hemoglobin 11.3 g/dL (13.5-17.5); Mean Corpuscular HGB CONC 30.4 g/dL (32.0-36.0); Mean Corpuscular Hemoglobin 27.2 pg (27.0-33.0); Mean Corpuscular Volume 89.4 fl (81.2-95.1); Mean Platelet Volume 9.2 fl (7.4-10.4); Platelet Count 284 10x3/uL (150-450); RBC Distribution Width 13.9 % (11.5-14.5); Red Blood Cell (RBC) Count 4.16 10x6/uL (4.32-5.72); White Blood Cell (WBC) Count 7.4 10x3/uL (3.5-10.5)
[2020-11-11 09:09] LABS: BUN (Urea Nitrogen) 4 mg/dL (8.4-25.7); Calc. Creatinine Clearance 138 mL/min (70-130); Calcium 9.2 mg/dL (7.8-10.44); Glucose 129 mg/dL (70-105); Magnesium 1.7 mg/dL (1.6-2.6); Phosphorus 4.3 mg/dL (2.3-4.7)
[2020-11-11 09:16] LABS: Anion Gap 14 mmol/L (10-20); Carbon Dioxide 37 mmol/L (22-29); Chloride 94 mmol/L (98-107); Potassium 4.2 mmol/L (3.5-5.1); Sodium 141 mmol/L (136-145)
[2020-11-11] MEDS: Tamsulosin HCl 0.4 MG CAP PO SCH (21:03)
[2020-11-11] MEDS: Enoxaparin Sodium 40 MG/0.4 ML SYRINGE SC SCH (21:03)
[2020-11-12] MEDS: GUAIFENESIN SF SOLN 200 MG/10 ML UDCUP PO SCH ×4 (00:04→19:34)
[2020-11-12] MEDS: Ivabradine 5 MG TAB PO SCH ×2 (05:44→19:32)
[2020-11-12] MEDS: Budesonide 0.5 MG/2 ML NEB NEB SCH ×2 (07:40→19:36)
[2020-11-12] MEDS: Docusate Sodium 100 MG/10 ML UDCUP PO SCH ×2 (08:46→23:38)
[2020-11-12] MEDS: Famotidine 20 MG TAB PO SCH ×2 (08:47→20:02)
[2020-11-12] MEDS: Magnesium Oxide 400 MG TAB PO SCH (08:48)
[2020-11-12] MEDS: Scopolamine 1.5 mg/72 hour Patch TD SCH (08:48)
[2020-11-12] MEDS: Lantus 1000 UNITS/10 ML VIAL SC SCH ×2 (08:48→21:00)
[2020-11-12] MEDS: Metoprolol Tartrate 25 MG TAB PO SCH ×2 (08:48→20:02)
[2020-11-12] MEDS: Enoxaparin Sodium 40 MG/0.4 ML SYRINGE SC SCH (20:01)
[2020-11-12] MEDS: Tamsulosin HCl 0.4 MG CAP PO SCH (20:02)
[2020-11-13] MEDS: GUAIFENESIN SF SOLN 200 MG/10 ML UDCUP PO SCH ×4 (00:52→17:42)
[2020-11-13] MEDS: Ivabradine 5 MG TAB PO SCH ×2 (05:42→17:42)
[2020-11-13] MEDS: Famotidine 20 MG TAB PO SCH ×2 (08:08→21:53)
[2020-11-13] MEDS: Docusate Sodium 100 MG/10 ML UDCUP PO SCH ×2 (08:08→21:56)
[2020-11-13] MEDS: Lantus 1000 UNITS/10 ML VIAL SC SCH ×2 (08:08→22:05)
[2020-11-13] MEDS: Magnesium Oxide 400 MG TAB PO SCH (08:09)
[2020-11-13] MEDS: Metoprolol Tartrate 25 MG TAB PO SCH ×2 (08:09→21:53)
[2020-11-13] MEDS: Budesonide 0.5 MG/2 ML NEB NEB SCH ×2 (09:26→20:23)
[2020-11-13] MEDS: Albuterol Sulfate 1.25 MG/3 ML NEB NEB SCH ×2 (14:48→20:25)
[2020-11-13] MEDS: Acetylcysteine 800 MG/4 ML VIAL INH SCH ×2 (14:48→20:24)
[2020-11-13] MEDS: Tamsulosin HCl 0.4 MG CAP PO SCH (21:53)
[2020-11-13] MEDS: Enoxaparin Sodium 40 MG/0.4 ML SYRINGE SC SCH (22:00)
[2020-11-14] MEDS: GUAIFENESIN SF SOLN 200 MG/10 ML UDCUP PO SCH ×5 (00:10→23:32)
[2020-11-14] MEDS: Albuterol Sulfate 1.25 MG/3 ML NEB NEB SCH ×3 (01:50→14:48)
[2020-11-14] MEDS: Acetylcysteine 800 MG/4 ML VIAL INH SCH ×3 (04:22→14:48)
[2020-11-14] MEDS: Ivabradine 5 MG TAB PO SCH ×2 (06:14→17:00)
[2020-11-14] MEDS: Budesonide 0.5 MG/2 ML NEB NEB SCH ×2 (07:32→19:05)
[2020-11-14] MEDS: Docusate Sodium 100 MG/10 ML UDCUP PO SCH ×2 (09:01→20:41)
[2020-11-14] MEDS: Metoprolol Tartrate 25 MG TAB PO SCH ×2 (09:02→20:32)
[2020-11-14] MEDS: Famotidine 20 MG TAB PO SCH ×2 (09:02→20:32)
[2020-11-14] MEDS: Lantus 1000 UNITS/10 ML VIAL SC SCH ×2 (09:02→20:39)
[2020-11-14] MEDS: Magnesium Oxide 400 MG TAB PO SCH (09:02)
[2020-11-14] MEDS ORDERED: Acetylcysteine 800 MG/4 ML VIAL INH PRN (17:48)
[2020-11-14] MEDS ORDERED: Albuterol Sulfate 1.25 MG/3 ML NEB NEB PRN (17:48)
[2020-11-14] MEDS: Enoxaparin Sodium 40 MG/0.4 ML SYRINGE SC SCH (20:31)
[2020-11-14] MEDS: Tamsulosin HCl 0.4 MG CAP PO SCH (20:32)
[2020-11-14] MEDS: Insulin Regular 300 UNITS/3 ML VIAL SC PRN (20:40)
[2020-11-15] MEDS: Ivabradine 5 MG TAB PO SCH ×2 (05:15→17:00)
[2020-11-15] MEDS: GUAIFENESIN SF SOLN 200 MG/10 ML UDCUP PO SCH ×4 (05:16→23:11)
[2020-11-15] MEDS: Budesonide 0.5 MG/2 ML NEB NEB SCH ×2 (07:43→20:35)
[2020-11-15] MEDS: Magnesium Oxide 400 MG TAB PO SCH (08:45)
[2020-11-15] MEDS: Famotidine 20 MG TAB PO SCH ×2 (08:45→23:00)
[2020-11-15] MEDS: Lantus 1000 UNITS/10 ML VIAL SC SCH ×2 (08:45→22:00)
[2020-11-15] MEDS: Metoprolol Tartrate 25 MG TAB PO SCH ×2 (08:45→23:00)
[2020-11-15] MEDS: Docusate Sodium 100 MG/10 ML UDCUP PO SCH ×2 (09:00→23:00)
[2020-11-15] MEDS: Scopolamine 1.5 mg/72 hour Patch TD SCH (10:30)
[2020-11-15 11:17] LABS: Actual Bicarbonate (HCO3a) 37.1 mEq/L (22-28); Base Excess (BEa) 8.7 mEq/L (-2.0 to +3.0); CO2 Tension 70.1 mmHg (35.0-45.0); Calcium, Ionized (arterial) 1.17 mmol/L (1.12-1.30); Carboxyhemoglobin (COHb) 0.6 gm% (0.0-3.0); Hemoglobin (Hb) 13.3 g/dL (14.0-18.0); O2 Tension (PaO2), arterial 68.9 mmHg (80.0-100.0); Puncture Site RBA; pH, Arterial 7.34 (7.35-7.45)
[2020-11-15] MEDS: Enoxaparin Sodium 40 MG/0.4 ML SYRINGE SC SCH (23:00)
[2020-11-15] MEDS: Tamsulosin HCl 0.4 MG CAP PO SCH (23:00)
[2020-11-16] MEDS: GUAIFENESIN SF SOLN 200 MG/10 ML UDCUP PO SCH ×4 (06:09→21:16)
[2020-11-16] MEDS: Ivabradine 5 MG TAB PO SCH ×2 (06:09→18:10)
[2020-11-16] MEDS: Budesonide 0.5 MG/2 ML NEB NEB SCH ×2 (06:59→19:50)
[2020-11-16] MEDS: Lantus 1000 UNITS/10 ML VIAL SC SCH ×2 (08:45→21:17)
[2020-11-16] MEDS: Magnesium Oxide 400 MG TAB PO SCH (09:15)
[2020-11-16] MEDS: Metoprolol Tartrate 25 MG TAB PO SCH ×2 (09:15→21:17)
[2020-11-16] MEDS: Docusate Sodium 100 MG/10 ML UDCUP PO SCH ×2 (09:15→21:16)
[2020-11-16] MEDS: Famotidine 20 MG TAB PO SCH ×2 (09:15→21:17)
[2020-11-16] MEDS: Enoxaparin Sodium 40 MG/0.4 ML SYRINGE SC SCH (21:16)
[2020-11-16] MEDS: Tamsulosin HCl 0.4 MG CAP PO SCH (21:17)
[2020-11-17] MEDS: Ivabradine 5 MG TAB PO SCH ×2 (05:25→17:49)
[2020-11-17] MEDS: GUAIFENESIN SF SOLN 200 MG/10 ML UDCUP PO SCH ×4 (05:26→22:19)
[2020-11-17] MEDS: Budesonide 0.5 MG/2 ML NEB NEB SCH ×2 (07:21→19:47)
[2020-11-17 08:21] VITALS: BMI 20.9
[2020-11-17] MEDS: Magnesium Oxide 400 MG TAB PO SCH (09:56)
[2020-11-17] MEDS: Lantus 1000 UNITS/10 ML VIAL SC SCH ×2 (09:56→22:19)
[2020-11-17] MEDS: Metoprolol Tartrate 25 MG TAB PO SCH ×2 (09:56→22:19)
[2020-11-17] MEDS: Docusate Sodium 100 MG/10 ML UDCUP PO SCH ×2 (09:56→22:19)
[2020-11-17] MEDS: Famotidine 20 MG TAB PO SCH ×2 (09:56→22:18)
[2020-11-17] MEDS: Insulin Regular 300 UNITS/3 ML VIAL SC PRN (19:00)
[2020-11-17] MEDS: Tamsulosin HCl 0.4 MG CAP PO SCH (22:18)
[2020-11-17] MEDS: Enoxaparin Sodium 40 MG/0.4 ML SYRINGE SC SCH (22:19)
[2020-11-18] MEDS: Ivabradine 5 MG TAB PO SCH (05:48)
[2020-11-18] MEDS: GUAIFENESIN SF SOLN 200 MG/10 ML UDCUP PO SCH ×2 (06:41→11:43)
[2020-11-18] MEDS: Budesonide 0.5 MG/2 ML NEB NEB SCH (07:40)
[2020-11-18 07:51] VITALS: BP 119/74; TEMP 98.1
[2020-11-18] MEDS: Magnesium Oxide 400 MG TAB PO SCH (09:33)
[2020-11-18] MEDS: Famotidine 20 MG TAB PO SCH (09:33)
[2020-11-18] MEDS: Metoprolol Tartrate 25 MG TAB PO SCH (09:33)
[2020-11-18] MEDS: Lantus 1000 UNITS/10 ML VIAL SC SCH (09:34)
[2020-11-18] MEDS: Docusate Sodium 100 MG/10 ML UDCUP PO SCH (09:34)
[2020-11-18] MEDS: Scopolamine 1.5 mg/72 hour Patch TD SCH (11:21)
== END 2020-11-18 12:15 | disposition home or self-care (01) | DRG 4 ==
LOC: CSHERS 10:07 → CSHPED 12:05 → UNDOADMOB 14:09 → INTOOBSV 14:10 → OBSVTOIN 14:10 → CSHIMCU 07-29 01:06 → CSHPED 07-29 12:00 → CSHIMCU 07-29 13:21 → CSHICU 08-01 02:15 → CSHIMCU 09-09 20:16 → CSHTELE 11-03 15:01
PROVIDERS: ADMIT Internal Medicine; ATTEND Internal Medicine
PROC: XW14325 Transfusion of Convalescent Plasma (Nonautologous) into Central Vein, Percutaneous Approach, New Technology Group 5 (ICD-10-PCS; 2020-07-17)
PROC: XW043E5 Introduction of Remdesivir Anti-infective into Central Vein, Percutaneous Approach, New Technology Group 5 (ICD-10-PCS; 2020-07-17)
PROC: 8E0ZXY6 Isolation (ICD-10-PCS; 2020-07-17)
PROC: 5A1955Z Respiratory Ventilation, Greater than 96 Consecutive Hours (ICD-10-PCS; 2020-07-29)
PROC: 0BH17EZ Insertion of Endotracheal Airway into Trachea, Via Natural or Artificial Opening (ICD-10-PCS; 2020-07-29)
PROC: 3E033XZ Introduction of Vasopressor into Peripheral Vein, Percutaneous Approach (ICD-10-PCS; 2020-07-29)
PROC: 02HV33Z Insertion of Infusion Device into Superior Vena Cava, Percutaneous Approach (ICD-10-PCS; principal; 2020-07-30)
PROC: B548ZZA Ultrasonography of Superior Vena Cava, Guidance (ICD-10-PCS; 2020-07-30)
PROC: 30243N1 Transfusion of Nonautologous Red Blood Cells into Central Vein, Percutaneous Approach (ICD-10-PCS; 2020-08-17)
PROC: 0B113F4 Bypass Trachea to Cutaneous with Tracheostomy Device, Percutaneous Approach (ICD-10-PCS; 2020-08-19)
PROC: 0DH63UZ Insertion of Feeding Device into Stomach, Percutaneous Approach (ICD-10-PCS; 2020-08-19)
PROC: 3E0G76Z Introduction of Nutritional Substance into Upper GI, Via Natural or Artificial Opening (ICD-10-PCS; 2020-08-19)
PROC: 30243N1 Transfusion of Nonautologous Red Blood Cells into Central Vein, Percutaneous Approach (ICD-10-PCS; 2020-08-23)
PROC: 5A09357 Assistance with Respiratory Ventilation, Less than 24 Consecutive Hours, Continuous Positive Airway Pressure (ICD-10-PCS; 2020-10-16)
DX: U07.1 COVID-19 (principal); A41.89 Other specified sepsis; J12.82 Pneumonia due to coronavirus disease 2019; G92 Toxic encephalopathy; I50.33 Acute on chronic diastolic (congestive) heart failure; J80 Acute respiratory distress syndrome; J15.212 Pneumonia due to Methicillin resistant Staphylococcus aureus; D62 Acute posthemorrhagic anemia; E46 Unspecified protein-calorie malnutrition; S27.892A Contusion of other specified intrathoracic organs, initial encounter; D68.69 Other thrombophilia; I82.612 Acute embolism and thrombosis of superficial veins of left upper extremity; G72.81 Critical illness myopathy; J98.2 Interstitial emphysema; G72.9 Myopathy, unspecified; I11.0 Hypertensive heart disease with heart failure; I95.9 Hypotension, unspecified; F41.9 Anxiety disorder, unspecified; E11.65 Type 2 diabetes mellitus with hyperglycemia; K52.9 Noninfective gastroenteritis and colitis, unspecified; R45.1 Restlessness and agitation; J98.8 Other specified respiratory disorders; R13.10 Dysphagia, unspecified; B94.8 Sequelae of other specified infectious and parasitic diseases; Z79.4 Long term (current) use of insulin; Z68.23 Body mass index [BMI] 23.0-23.9, adult; Z78.1 Physical restraint status
CPT/HCPCS: 36415; 36416; 36430; 36568; 36600; 70450; 71045; 74018; 74176; 74177; 74230; 76705; 80048; 80053; 80202; 81001; 82140; 82274; 82728; 82805; 83036; 83605; 83615; 83690; 83735; 83880; 84100; 84145; 84443; 84484; 85025; 85027; 85049; 85060; 85300; 85362; 85379; 85384; 85610; 85730; 86140; 86803; 86850; 86900; 86901; 87040; 87070; 87077; 87086; 87149; 87186; 87205; 87324; 87340; 87389; 87449; 87899; 93005; 93010; 93306; 93970; 94002; 94003; 94640; 94660; 94667; 94668; 94669; 94760; 96365; 96367; 96375; C1751; C9113; J0153; J0456; J0692; J0696; J1100; J1160; J1450; J1650; J1815; J1940; J2001; J2060; J2250; J2270; J2405; J2543; J2704; J3010; J3370; J3490; J7050; J7070; J7620; J7626; P9016; Q0162